=== PATIENT | male | born 1995 | race Caucasian/White ===

== ENCOUNTER 2019-08-14 07:57 | Outpatient (CLI) | payer OTHER, SELFPAY ==
--- NOTE | 2019-08-14 08:09 | MR_ITS ---
WS: [id number] MRI THORACIC SPINE noncontrast HISTORY: CHRONIC BACK PAIN, SCOLIOSIS COMPARISON: No similar studies. TECHNIQUE: Multiplanar sequences are performed in sagittal and axial planes. Mild RIGHT convex curvature of the lower thoracic spine. Increase in thoracic kyphosis centered at T9 -T12. No marrow edema or fractures. There is mild anterior wedging from T8 through T12. This could be congenital. Signal within the cord is normal. No cord enlargement or atrophy. No edema. T1-2: Normal. T2-3: Normal. T3-4: Normal. T4-5: Normal. T5-6: Normal. T6-7: Normal. T7-8: Central disc protrusion with mild contact and deformity of the ventral cord. T8-9: Small RIGHT paracentral disc protrusion with contact and deformity of the cord. T9-10: Disc osteophyte RIGHT paracentral and proximal foramen with cord contact and flattening of th e RIGHT thecal sac and cord. T10-11: Moderate-sized RIGHT paracentral disc osteophyte complex with cord contact and displacement of the thecal sac. Moderate RIGHT foraminal narrowing. T11-12: Mild disc bulging and osteophytosis. Mild flattening of the ventral thecal sac and narrowing of the foramen. T12-L1: Very shallow LEFT paracentral disc protrusion with annular fissure. MR/MR thoracic spin wo con* [id number] IMPRESSION: 1. Multilevel disc and osteophyte complexes. Most significant is RIGHT paracen tral at T9-10 and T10-11 with cord contact and deformity of the RIGHT lateral t horacic cord. 2. There are additional small multilevel disc protrusions and osteophytes from T7-8 through T12-L1.
--- NOTE | 2019-08-14 08:09 | MR_ITS ---
WS: [id number] MRI LUMBAR SPINE NONCONTRAST HISTORY: CHRONIC BACK PAIN/ SCOLIOSIS COMPARISON: None available. TECHNIQUE: Sagittal and axial multisequence imaging is submitted. Posterior alignment is normal. Very slight RIGHT convex curvature the lower lumbar spine. Disc spaces and vertebral body heights are normal. Disc spaces and vertebral body heights are well-preserved. Conus terminates normally at L1. L1-L2: Normal. L2-L3: Normal. L3-L4: Normal. L4-L5: Very slight annular disc bulging. No significant stenosis. L5-S1: Mild annular disc bulging with a shallow RIGHT paracentral disc protrusion. Very slight contac t on the RIGHT S1 nerve root and narrowing of the RIGHT subarticular recess. No significant stenosis. Paraspinal soft tissues are normal. MR/MR lumbar spine wo con* [id number] IMPRESSION: 1. Shallow RIGHT paracentral disc protrusion at L5-S1 with mild encroachment u jam the RIGHT S1 nerve root and narrowing of the RIGHT subarticular recess. 2. No fractures or marrow edema.
== END 2019-08-14 07:58 | disposition home or self-care (01) ==
LOC: RADWPI 08:03
PROVIDERS: Family Provider Electrodiagnostic Medicine; PCP Electrodiagnostic Medicine; Visit Provider Electrodiagnostic Medicine
DX: M25.78 Osteophyte, vertebrae (principal); M51.25 Other intervertebral disc displacement, thoracolumbar region
CPT/HCPCS: 72146; 72148

== ENCOUNTER 2019-09-22 13:13 | Emergency (ER) | payer OTHER, SELFPAY ==
[2019-09-22 13:24] VITALS: BP 125/77; PULSE 80; RESP 16; TEMP 36.9; O2SAT 96; BMI 27.3
[2019-09-22 13:31] VITALS: BP 125/81; PULSE 82; RESP 17; O2SAT 97
--- NOTE | 2019-09-22 13:35 | USR_ITS ---
PROCEDURE INFORMATION: Exam: US Scrotum Exam date and time: 09/22/2019 1:40 PM Age: 23 years old Clinical indication: Scrotum pain; Patient HX: Pain less than 12 hours. Question of epididymitis on RT. RT side thickened skin, small hydrocele, small spermatocele. PT directs me to area of pain in groin. The lumpy are are lympn nodes. Scanning causes him pain in groin area. ; Additional info: Groin pain TECHNIQUE: Imaging protocol: Real-time ultrasound of the scrotum and contents with color Doppler and image documentation. COMPARISON: No relevant prior studies available. FINDINGS: Right testicle: Normal. No mass. No torsion. Normal vascular flow. 4.2 cm x 1.9 cm x 2.7 Left testicle: Normal. No mass. No torsion. Normal vascular flow. 4 cm x 1.8 cm x 2.4 Epididymides: Right 3.4 mm, there is a right epididymal cyst 3.4 mm x 3 mm left 2.5 mm Scrotum: There is a scrotal bharati prior seen on the right side 2.5 mm x 2.3 mm x 2.4 mm There is skin thickening on the right side measuring 4.5 mm. Left 2.7 mm. A small volume hydrocele is seen on the right side The area of patient's symptoms correlate with small lymph nodes measuring 1.1 cm x 0.9 cm x 0.8 cm. A 2nd node is present measuring 5.5 mm, a 3rd node measures 4.5 mm. US/US scrotum [id number] IMPRESSION: 1. Negative for intrinsic testicular abnormalities. 2. Area of palpable findings correspond to benign lymph nodes 3. Right epididymal head cyst 4. Small scrotal bharati right side 5. Right side scrotal skin thickening. 6. Small hydrocele right side
[2019-09-22 13:48] LABS: Basophils % 0.2 %; Eosinophils # 0.2 10^3/uL (0.0-0.8); Eosinophils % 1.8 %; Hematocrit 46.4 % (42.0-52.0); Hemoglobin 15.5 g/dL (11.7-16.6); Lymphocytes % 11.2 %; Mean Corpuscular HGB Conc 33.4 g/dL (30.0-36.0); Mean Corpuscular Hemoglobin 30.3 pg (28.0-34.0); Mean Corpuscular Volume 90.6 fL (80-94); Mean Platelet Volume 10.5 fL (7.4-10.4); Monocytes # 0.7 10^3/uL (0.2-0.9); Monocytes % 7.9 %; Neutrophils # 7.2 10^3/uL (1.8-7.7); Neutrophils % 78.7 %; Nucleated Red Blood Cells % 0 %; Platelet Count 270 10^3/cmm (130-400); Red Blood Count 5.12 10^6/uL (4.1-5.3); Red Cell Distribution Width 12.4 % (12.1-15.1); White Blood Count 9.1 10^3/uL (4.0-10.0)
[2019-09-22 14:04] LABS: Alanine Aminotransferase 24 U/L (0-41); Albumin Level 4.5 g/dL (3.5-5.2); Alkaline Phosphatase 69 IU/L (40-130); Aspartate Amino Transferase 20 U/L (0-40); Blood Urea Nitrogen 13 mg/dL (6-20); Calcium 9.8 mg/dL (8.5-10.5); Carbon Dioxide 27 mmol/L (22-29); Chloride 98 mmol/L (98-107); Glomerular Filtration Rate 106.5 mL/min (90-130); Glucose 107 mg/dL (65-115); Osmolality Calculated 279 mOsm/kg (285-295); Sodium 136 mmol/L (136-145); Total Bilirubin 0.5 mg/dL (0.15-1.2); Total Protein 6.5 g/dL (6.6-8.7)
--- NOTE | 2019-09-22 14:08 | W.ED.MALEGU ---
Documented by User: PARMINDER Montero 09/24/19 09:41 HPI - Male Genitourinary General: Chief complaint: Urogenital-Male Stated complaint: GROIN PAIN/HIP PAIN/LOWER BACK PAIN/POSS FEVER Time Seen by Provider: 09/22/19 13:26 History of Present Illness: HPI Narrative: Patient is a 23-year-old male comes to the ED with right groin/testicular pain. Patient says pain started yesterday after he had intercourse with his girlfriend. He noticed tender lump in the groin and he described having some testicular pain as well. Patient is feeling a little nauseous and rates the pain a 7 out of 10. He also states that last night he did develop a little bit of a fever. He has been in a monogamous relationship with a woman and they are sexually active. Partner does not have any current STDs. Denies any vomiting, dysuria, hematuria, genital lesions, genital discharge. Associated symptoms: Deny dysuria, hematuria, nausea or vomiting Review of Systems Const: Reports: fever; Denies: chills or fatigue Eyes: Denies: change in vision or eye discomfort ENMT: Denies: throat pain, painful swallowing, nasal discharge or nasal congestion Card: Denies: chest pain, palpitations, edema, swelling of feet/ankles, shortness of breath on exertion or shortness of breath when lying down Resp: Denies: shortness of breath, productive cough or non-productive cough GI: Denies: abdominal pain, nausea, vomiting, diarrhea, constipation or blood in stool : Reports: testicular pain; Denies: flank pain, difficulty urinating, painful urination or blood in urine Musc: Denies: neck pain, back pain or extremity swelling Skin/Breast: Denies: rash or new lesion Neuro: Denies: headache, numbness in extremities or weakness in extremities Darrius/Lymph: Reports: tender lymph nodes (right groin) [facility] ED PFSH: Social History Smoking and tobacco status: current every day smoker Current gender identity: Male Physical Exam Narrative: EXAM NARRATIVE: Patient is a 23-year-old male who is sitting comfortably on the exam bed when I enter the room. He appears in no acute pain or distress. Const: COMMON NORMALS: oriented x3 HENMT: COMMON NORMALS: normocephalic HEAD & SCALP: normocephalic MOUTH: oral and palatal mucosa normal THROAT: posterior oropharynx normal and uvula midline Neck/C-Spine: COMMON NORMALS: supple GENERAL: Yes normal visual inspection Lymph: LYMPHATIC: lymphadenopathy (Right Groin-small mild tender palpable lymph node) Resp: COMMON NORMALS: normal respiratory effort, no retractions, no use of accessory muscles and clear to auscultation bilaterally AUSCULTATION: clear to auscultation bilaterally Cardio: COMMON NORMALS: regular rate, regular rhythm, S1 normal heart sound, S2 normal heart sound, no gallops, no clicks, no murmurs and peripheral pulses 2+ throughout RATE: regular rate RHYTHM: regular rhythm HEART SOUNDS: S1 normal and S2 normal PERIPHERAL PULSES: pulses 2+ throughout GI: COMMON NORMALS: normal to inspection, nondistended, normoactive bowel sounds, soft to palpation, non-tender and no masses PALPATION: Yes soft : COMMON NORMALS: Yes no CVA tenderness BLADDER/KIDNEY EXAM: Yes no CVA tenderness TESTES: Yes testicular tenderness Testicular tenderness laterality: right Back/Pelvis: COMMON NORMALS: no CVA tenderness Extremity: COMMON NORMALS: normal to inspection Neuro: COMMON NORMALS: oriented x3 and moves all extremities Skin: COMMON NORMALS: no rashes or lesions noted GENERAL SKIN EXAM: no rashes or lesions noted and dry skin Course Vital Signs: Vital signs: Vital Signs Temperature 98.4 F 09/22/19 15:43 Pulse Rate 72 09/22/19 15:43 Respiratory Rate 16 09/22/19 15:43 Blood Pressure 111/55 09/22/19 15:43 Pulse Oximetry 97 09/22/19 15:43 MDM - Male MDM Narrative: Medical decision making narrative: Patient is a 23-year-old male who comes into the ED with testicular and groin pain. Patient also wanted to be tested for gonorrhea and chlamydia. He is having no genital lesions or penile discharge and he is sexually active in a monogamous relationship with his girlfriend. Ultrasound showed an enlarged epididymitis and physical exam showed a small, palpable tender lymph node in the right groin. Right testicle tender as well. Patient was treated for epididymitis and given a shot of Rocephin and sent home with a prescription for doxycycline. He was told to follow-up with his PCP in 7 days for reevaluation. Patient understood and agreed with plan. Lab Data: Attestation: I reviewed the patient's lab results. Labs: Lab Results 09/22/19 09/22/19 09/22/19 Range/Units 13:42 13:42 14:43 WBC 9.1 (4.0-10.0) 10^3/ uL RBC 5.12 (4.1-5.3) 10^6/u L Hgb 15.5 (11.7-16.6) g/dL Hct 46.4 (42.0-52.0) % MCV 90.6 (80-94) fL MCH 30.3 (28.0-34.0) pg MCHC 33.4 (30.0-36.0) g/dL RDW 12.4 (12.1-15.1) % Plt Count 270 (130-400) 10^3/c mm MPV 10.5 H (7.4-10.4) fL Neut % (Auto) 78.7 % Lymph % (Auto) 11.2 % [place] % (Auto) 7.9 % Eos % (Auto) 1.8 % Baso % (Auto) 0.2 % Neut # (Auto) 7.2 (1.8-7.7) 10^3/u L Lymph # (Auto) 1.0 (0.8-4.8) 10^3/u L [place] # (Auto) 0.7 (0.2-0.9) 10^3/u L Eos # (Auto) 0.2 (0.0-0.8) 10^3/u L Baso # (Auto) 0.0 (0.0-0.1) 10^3/u L Nucleated RBC % (a uto) 0 % Nucleated RBCs # 0.0 /100WBC Sodium 136 (136-145) mmol/L Potassium 4.0 (3.5-5.1) mmol/L Chloride 98 (98-107) mmol/L Carbon Dioxide 27 (22-29) mmol/L Anion Gap 15.0 (5-19) BUN 13 (6-20) mg/dL Creatinine 0.9 (0.7-1.2) mg/dL GFR Calculation 106.5 (90-130) mL/min Glucose 107 (65-115) mg/dL Calculated Osmolal ity 279 L (285-295) mOsm/k g Calcium 9.8 (8.5-10.5) mg/dL Total Bilirubin 0.5 (0.15-1.2) mg/dL AST 20 (0-40) U/L ALT 24 (0-41) U/L Alkaline Phosphata se 69 (40-130) IU/L Total Protein 6.5 L (6.6-8.7) g/dL Albumin 4.5 (3.5-5.2) g/dL Globulin 2.0 (1.3-4.6) g/dL Urine Color Yellow (Yellow) Urine Appearance Sl hazy (CLEAR) Urine pH 7 (5-7) Ur Specific Gravit y 1.015 (1.005-1.030) Urine Protein Neg (Negative) Urine Glucose (UA) Norm (Normal) Urine Ketones Negative (Negative) Urine Blood Neg (Negative) Urine Nitrate Negative (Negative) Urine Bilirubin Neg (NEGATIVE) Urine Urobilinogen Norm (Negative) mg/dL Ur Leukocyte Juliann ase Negative (Negative) Urine RBC None (0-2) /hpf Urine WBC None (0-5) /hpf Ur Squamous Epith Cells None (0-5) Amorphous Sediment 2+ Urine Bacteria Trace (NONE) Imaging Data: US: Attestation: I personally reviewed and interpreted this imaging study as follows: My impression: Prelim report?reactive lymph node and right groin region. Right epididymitis. Radiologist's impression: [place] [address] Ultrasound Report Signed Patient: Richar Hudson Unit #: [id number] : 1995 Age/Sex: 23 / M ADM Date: 09/22/19 Loc: ER Room/Bed: Attending Dr: Ordering Provider/Ordering MD: Chaka Madrigal Date of Service: 09/22/19 Procedure(s): US scrotum [id number] Accession Number(s): [id number] Report Number: [id number] PROCEDURE INFORMATION: Exam: US Scrotum Exam date and time: 09/22/2019 1:40 PM Age: 23 years old Clinical indication: Scrotum pain; Patient HX: Pain less than 12 hours. Question of epididymitis on RT. RT side thickened skin, small hydrocele, small spermatocele. PT directs me to area of pain in groin. The lumpy are are lympn nodes. Scanning causes him pain in groin area. ; Additional info: Groin pain TECHNIQUE: Imaging protocol: Real-time ultrasound of the scrotum and contents with color Doppler and image documentation. COMPARISON: No relevant prior studies available. FINDINGS: Right testicle: Normal. No mass. No torsion. Normal vascular flow. 4.2 cm x 1.9 cm x 2.7 Left testicle: Normal. No mass. No torsion. Normal vascular flow. 4 cm x 1.8 cm x 2.4 Epididymides: Right 3.4 mm, there is a right epididymal cyst 3.4 mm x 3 mm left 2.5 mm Scrotum: There is a scrotal bharati prior seen on the right side 2.5 mm x 2.3 mm x 2.4 mm There is skin thickening on the right side measuring 4.5 mm. Left 2.7 mm. A small volume hydrocele is seen on the right side The area of patient's symptoms correlate with small lymph nodes measuring 1.1 cm x 0.9 cm x 0.8 cm. A 2nd node is present measuring 5.5 mm, a 3rd node measures 4.5 mm. US/ scrotum [id number] IMPRESSION: 1. Negative for intrinsic testicular abnormalities. 2. Area of palpable findings correspond to benign lymph nodes 3. Right epididymal head cyst 4. Small scrotal bharati right side 5. Right side scrotal skin thickening. 6. Small hydrocele right side Dictated By: Geovany Mendoza Signed By: Geovany Mendoza Signed Date/Time: 09/22/191445 DD/ 1445 Discharge Plan Discharge Patient Disposition: Home, Self-Care Clinical Impression: Epididymitis, right, Reactive lymphadenopathy Condition: Stable Prescriptions: New doxycycline monohydrate 100 mg capsule 100 mg PO BID 10 Days Qty: 20 RF: 0 prednisone 50 mg tablet 50 mg PO DAILY 5 Days Qty: 5 RF: 0 No Action Combivent Respimat 20-100 mcg/actuation mist 1 puff INHALATION QID RF: 0 naproxen 250 mg Tablet 250 mg PO BID PRN (Reason: Pain) RF: 0 Tylenol Extra Strength 500 mg Tablet 1,000 mg PO Q6H PRN (Reason: Pain) RF: 0 Protonix 40 mg Tablet,Delayed Release (Dr/Ec) 40 mg PO DAILY RF: 0 Probiotic 20 billion cell Capsule 20,000 mmu cells PO DAILY RF: 0 Discharge Orders: Discharge Order (Routine); Ordered 09/22/19 Ordered By: Chaak Madrigal Referrals: Juan Antonio Dunn DO [Primary Care Provider] - Discharge Diet: Regular Discharge Activity: Increase activity as tolerated Patient Instructions: Epididymitis, Lymphadenitis Activity Restrictions/Additional Instructions: Follow-up with PCP in 7 days for reevaluation. Take full course of antibiotics and steroids as prescribed. You can take Tylenol or ibuprofen for any pain or fevers. Apply ice pack on painful area to help with symptoms. Discharge Date/Time: 09/22/19 15:44 Coding Level of Care Code ED Rubber Turner for Chg Fwd Exam Comprehensive Documented by User: Joon Boston DO 09/24/19 11:24 HPI - Male Genitourinary General: Chief complaint: Urogenital-Male Stated complaint: GROIN PAIN/HIP PAIN/LOWER BACK PAIN/POSS FEVER Time Seen by Provider: 09/22/19 13:26 PFSH ED PFSH: Social History Smoking and tobacco status: current every day smoker Current gender identity: Male Course Vital Signs: Vital signs: Vital Signs Temperature 98.4 F 09/22/19 15:43 Pulse Rate 72 09/22/19 15:43 Respiratory Rate 16 09/22/19 15:43 Blood Pressure 111/55 09/22/19 15:43 Pulse Oximetry 97 09/22/19 15:43 MDM - Male MDM Narrative: Medical decision making narrative: Reviewed chart with PA. Agree with assessment and plan Lab Data: Labs: Lab Results 09/22/19 09/22/19 09/22/19 Range/Units 13:42 13:42 14:43 WBC 9.1 (4.0-10.0) 10^3/ uL RBC 5.12 (4.1-5.3) 10^6/u L Hgb 15.5 (11.7-16.6) g/dL Hct 46.4 (42.0-52.0) % MCV 90.6 (80-94) fL MCH 30.3 (28.0-34.0) pg MCHC 33.4 (30.0-36.0) g/dL RDW 12.4 (12.1-15.1) % Plt Count 270 (130-400) 10^3/c mm MPV 10.5 H (7.4-10.4) fL Neut % (Auto) 78.7 % Lymph % (Auto) 11.2 % [place] % (Auto) 7.9 % Eos % (Auto) 1.8 % Baso % (Auto) 0.2 % Neut # (Auto) 7.2 (1.8-7.7) 10^3/u L Lymph # (Auto) 1.0 (0.8-4.8) 10^3/u L [place] # (Auto) 0.7 (0.2-0.9) 10^3/u L Eos # (Auto) 0.2 (0.0-0.8) 10^3/u L Baso # (Auto) 0.0 (0.0-0.1) 10^3/u L Nucleated RBC % (a uto) 0 % Nucleated RBCs # 0.0 /100WBC Sodium 136 (136-145) mmol/L Potassium 4.0 (3.5-5.1) mmol/L Chloride 98 (98-107) mmol/L Carbon Dioxide 27 (22-29) mmol/L Anion Gap 15.0 (5-19) BUN 13 (6-20) mg/dL Creatinine 0.9 (0.7-1.2) mg/dL GFR Calculation 106.5 (90-130) mL/min Glucose 107 (65-115) mg/dL Calculated Osmolal ity 279 L (285-295) mOsm/k g Calcium 9.8 (8.5-10.5) mg/dL Total Bilirubin 0.5 (0.15-1.2) mg/dL AST 20 (0-40) U/L ALT 24 (0-41) U/L Alkaline Phosphata se 69 (40-130) IU/L Total Protein 6.5 L (6.6-8.7) g/dL Albumin 4.5 (3.5-5.2) g/dL Globulin 2.0 (1.3-4.6) g/dL Urine Color Yellow (Yellow) Urine Appearance Sl hazy (CLEAR) Urine pH 7 (5-7) Ur Specific Gravit y 1.015 (1.005-1.030) Urine Protein Neg (Negative) Urine Glucose (UA) Norm (Normal) Urine Ketones Negative (Negative) Urine Blood Neg (Negative) Urine Nitrate Negative (Negative) Urine Bilirubin Neg (NEGATIVE) Urine Urobilinogen Norm (Negative) mg/dL Ur Leukocyte Juliann ase Negative (Negative) Urine RBC None (0-2) /hpf Urine WBC None (0-5) /hpf Ur Squamous Epith Cells None (0-5) Amorphous Sediment 2+ Urine Bacteria Trace (NONE) Discharge Plan Discharge Patient Disposition: Home, Self-Care Clinical Impression: Epididymitis, right, Reactive lymphadenopathy Condition: Stable Prescriptions: New doxycycline monohydrate 100 mg capsule 100 mg PO BID 10 Days Qty: 20 RF: 0 prednisone 50 mg tablet 50 mg PO DAILY 5 Days Qty: 5 RF: 0 No Action Combivent Respimat 20-100 mcg/actuation mist 1 puff INHALATION QID RF: 0 naproxen 250 mg Tablet 250 mg PO BID PRN (Reason: Pain) RF: 0 Tylenol Extra Strength 500 mg Tablet 1,000 mg PO Q6H PRN (Reason: Pain) RF: 0 Protonix 40 mg Tablet,Delayed Release (Dr/Ec) 40 mg PO DAILY RF: 0 Probiotic 20 billion cell Capsule 20,000 mmu cells PO DAILY RF: 0 Discharge Orders: Discharge Order (Routine); Ordered 09/22/19 Ordered By: Chaka Madrigal Referrals: Juan Antonio Dunn DO [Primary Care Provider] - Discharge Diet: Regular Discharge Activity: Increase activity as tolerated Patient Instructions: Epididymitis, Lymphadenitis Activity Restrictions/Additional Instructions: Follow-up with PCP in 7 days for reevaluation. Take full course of antibiotics and steroids as prescribed. You can take Tylenol or ibuprofen for any pain or fevers. Apply ice pack on painful area to help with symptoms. Discharge Date/Time: 09/22/19 15:44 Coding Level of Care Code ED Rubber Turner for Chg Fwd Exam Comprehensive
[2019-09-22] MEDS: ondansetron 4 MG Tablet PO (14:37)
[2019-09-22] MEDS: HYDROcodone-acetaminophen 7.5-325 mg Tablet 1 TAB PO (14:37)
[2019-09-22 14:41] VITALS: BP 134/69; RESP 16
[2019-09-22] MEDS: cefTRIAXone 250 mg SDV IM (15:04)
[2019-09-22] MEDS: lidocaine 1% INJ 20 mL IM (15:05)
[2019-09-22 15:24] LABS: Bilirubin Urine Neg (NEGATIVE); Blood Urine Neg (Negative); Glucose Urine UA Norm (Normal); Ketones Urine Negative (Negative); Nitrate Urine Negative (Negative); Protein Urine Neg (Negative); Specific Gravity, Urine 1.015 (1.005-1.030); Urine Appearance SL Hazy (CLEAR); Urine Color Yellow (Yellow); Urobilinogen Urine Norm (Negative); pH Urine 7 (5-7)
[2019-09-22 15:25] LABS: Add Urine Culture? No; Amorphous Sediment Urine 2+; Bacteria Urine TRACE
[2019-09-22] MEDS: calcium carbonate 500 mg Chew Tablet PO (15:42)
[2019-09-22 15:43] VITALS: BP 111/55; PULSE 72; RESP 16; TEMP 36.9; O2SAT 97
[2019-09-22 15:48] LABS: Leukocyte Esterase Urine Negative (Negative)
== END 2019-09-22 15:44 | disposition home or self-care (01) ==
PROVIDERS: Emergency Provider Physician Assistant; Family Provider Electrodiagnostic Medicine; PCP Electrodiagnostic Medicine
DX: N45.1 Epididymitis (principal); R59.0 Localized enlarged lymph nodes; F17.200 Nicotine dependence, unspecified, uncomplicated
CPT/HCPCS: 12345; 36415; 76870; 80053; 81001; 85025; 87491; 87591; 96372; 99283; A9270; J0696; J2001; Q0162

== ENCOUNTER → 2020-01-23 13:45 | Outpatient (BNVA) | payer OTHER, SELFPAY | PROVIDERS: Family Provider Electrodiagnostic Medicine; PCP Electrodiagnostic Medicine; Visit Provider Nurse Practitioner Family | DX: R05 Cough (principal); R50.9 Fever, unspecified; R53.83 Other fatigue; Z11.59 Encounter for screening for other viral diseases | CPT/HCPCS: 87635 ==

== ENCOUNTER → 2020-02-17 13:49 | Outpatient (BNVA) | payer OTHER, SELFPAY | PROVIDERS: Family Provider Electrodiagnostic Medicine; PCP Electrodiagnostic Medicine; Visit Provider Psychiatry & Neurology Psychiatry | DX: F33.2 Major depressive disorder, recurrent severe without psychotic features (principal); F41.1 Generalized anxiety disorder; F10.20 Alcohol dependence, uncomplicated; F11.20 Opioid dependence, uncomplicated; F17.200 Nicotine dependence, unspecified, uncomplicated; F12.20 Cannabis dependence, uncomplicated; F43.12 Post-traumatic stress disorder, chronic | CPT/HCPCS: 80053; 80306; 82150; 83690; 84443; 85025; 99204 ==

== ENCOUNTER → 2020-02-18 09:05 | Outpatient (BNVA) | payer OTHER, SELFPAY | PROVIDERS: Family Provider Electrodiagnostic Medicine; PCP Electrodiagnostic Medicine; Visit Provider Psychiatry & Neurology Psychiatry | DX: F41.1 Generalized anxiety disorder (principal); F33.2 Major depressive disorder, recurrent severe without psychotic features; F12.20 Cannabis dependence, uncomplicated; F17.200 Nicotine dependence, unspecified, uncomplicated; F10.20 Alcohol dependence, uncomplicated; F11.20 Opioid dependence, uncomplicated | CPT/HCPCS: 99213 ==

== ENCOUNTER → 2020-02-24 16:33 | Outpatient (BNVA) | payer OTHER, SELFPAY | PROVIDERS: Family Provider Electrodiagnostic Medicine; PCP Electrodiagnostic Medicine; Visit Provider Psychiatry & Neurology Psychiatry | DX: F17.200 Nicotine dependence, unspecified, uncomplicated (principal); F41.1 Generalized anxiety disorder; F33.2 Major depressive disorder, recurrent severe without psychotic features; F12.20 Cannabis dependence, uncomplicated; F10.20 Alcohol dependence, uncomplicated; F11.20 Opioid dependence, uncomplicated | CPT/HCPCS: 80307 ==

== ENCOUNTER → 2020-03-11 12:45 | Outpatient (BNVA) | payer OTHER, SELFPAY | PROVIDERS: Family Provider Electrodiagnostic Medicine; PCP Electrodiagnostic Medicine; Visit Provider Psychiatry & Neurology Psychiatry | DX: F11.20 Opioid dependence, uncomplicated (principal) | CPT/HCPCS: 80306; 80307 ==

== ENCOUNTER 2020-08-01 10:56 | Emergency (ER) | payer SELFPAY ==
[2020-08-01 11:01] VITALS: BP 145/103; PULSE 100; RESP 18; TEMP 36.8; O2SAT 99; BMI 30.4
--- NOTE | 2020-08-01 11:03 | CTR_ITS ---
PROCEDURE INFORMATION: Exam: CT Abdomen And Pelvis Without Contrast Exam date and time: 08/01/2020 11:14 AM Age: 24 years old Clinical indication: Abdominal pain; Flank; Right; Prior surgery; Surgery date: 6+ months; Surgery type: Appy; Additional info: Flank pain, hematuria TECHNIQUE: Imaging protocol: Computed tomography of the abdomen and pelvis without contrast. Radiation optimization: All CT scans at this facility use at least one of these dose optimization techniques: automated exposure control; mA and/or kV adjustment per patient size (includes targeted exams where dose is matched to clinical indication); or iterative reconstruction. COMPARISON: [facility] Abdomen Limited 12/08/2014 9:20 AM RADIATION DOSE METRICS: Total DLP (mGy-cm): 1269.48 FINDINGS: Liver: Normal. No mass. Gallbladder and bile ducts: Normal. No calcified stones. No ductal dilation. Pancreas: Normal. No ductal dilation. Spleen: Normal. No splenomegaly. Adrenal glands: Normal. No mass. Kidneys and ureters: There is a 0.3 cm obstructing stone in the right UVJ, resulting in mild hydroureteronephrosis. There is multiple additional nonobstructive kidney stones on the right, measuring between 1 mm and 2 mm. The left kidney is unremarkable. Stomach and bowel: Unremarkable. No obstruction. No mucosal thickening. Appendix: There has been an appendectomy. Intraperitoneal space: Unremarkable. No free air. No significant fluid collection. Vasculature: Unremarkable. No abdominal aortic aneurysm. Lymph nodes: Unremarkable. No enlarged lymph nodes. Urinary bladder: Unremarkable as visualized. Reproductive: Unremarkable as visualized. Bones/joints: Tiny bone islands noted in the hips. The osseous structures are otherwise unremarkable. Soft tissues: Unremarkable. CT/CT kidney stone [id number] IMPRESSION: Obstructing stone in the right UVJ, resulting in mild hydroureteronephrosis. Additional nonobstructive right kidney stones. Radiation Dose CTDIVOL = (mGy): DLP = 1269.48 (mGy-cm)
--- NOTE | 2020-08-01 11:04 | W.ED.MALEGU ---
HPI - Male Genitourinary General: Chief complaint: Urogenital-Male Stated complaint: Kidney Stones Time Seen by Provider: 08/01/20 10:59 History of Present Illness: HPI Narrative: 24-year-old male presents emergency room with complaint of hematuria flank pain on the left radiating down to the suprapubic area. He has had some nausea and vomiting. He is not previously had renal stones. Denies fever sweats chills shortness of breath cough or chest pain. Onset (ago): hour(s) Duration: constant Location: left flank Radiation: abdomen Severity: severe Quality: sharp Relieving factors: none Exacerbating factors: urination Associated symptoms: Reports dysuria, hematuria and vomiting; Deny discharge, fevers/chills, nausea, rash, swelling, urinary incontinence, urinary retention or mass Review of Systems Const: Denies: fever(s), chills, body aches, change in appetite, fatigue or malaise ENMT: Denies: throat pain, ear or mastoid pain, nasal discharge or nasal congestion Card: Denies: chest pain, edema, dyspnea on exertion or orthopnea Resp: Denies: dyspnea, productive cough or non-productive cough GI: Reports: vomiting; Denies: nausea : Reports: dysuria and hematuria; Denies: urinary incontinence Skin/Breast: Denies: rash or pruritus PFSH ED PFSH: Social History Smoking and tobacco status: current every day smoker cigarettes Packs smoked per day: 0.5 and e-cigarettes E-Cigarette Details: e-cigarette and with nicotine E-cig/vape details: Daily use Quit status (tobacco): has tried quititng Number of times tried to quit tobacco: 5 Second hand smoke exposure: Yes Smoking risk assessment/counseling performed?: No Alcohol intake: current Current gender identity: Male Physical Exam Const: COMMON NORMALS: no acute distress GENERAL APPEARANCE: cooperative and comfortable ORIENTATION/CONSCIOUSNESS: Yes awake, Yes oriented to person, Yes oriented to place and Yes oriented to time HENMT: COMMON NORMALS: normocephalic, atraumatic and hearing grossly normal bilaterally HEAD & SCALP: normocephalic and atraumatic Neck/C-Spine: COMMON NORMALS: no JVD Resp: COMMON NORMALS: normal respiratory effort, No retractions, No use of accessory muscles and clear to auscultation bilaterally AUSCULTATION: clear to auscultation bilaterally Cardio: COMMON NORMALS: no JVD, regular rate, regular rhythm and No murmurs present (Cardio) RATE: regular rate RHYTHM: regular rhythm GI: COMMON NORMALS: Soft to palpation and No hepatosplenomegaly present AUSCULTATION: Yes normoactive bowel sounds PALPATION: Yes Soft to palpation, No Tenderness to palpation present (GI), No Guarding due to palpation present (GI) and Yes No hepatosplenomegaly present Extremity: COMMON NORMALS: normal to inspection, capillary refill normal, no clubbing, cyanosis or edema, no calf tenderness and no pedal edema Neuro: SENSORIUM/ORIENTATION: Yes oriented to person, Yes oriented to place and Yes oriented to time Skin: COMMON NORMALS: no rashes or lesions noted GENERAL SKIN EXAM: no rashes or lesions noted Course Vital Signs: Vital signs: Vital Signs Temperature 98.2 F 08/01/20 11:01 Pulse Rate 100 08/01/20 11:01 Respiratory Rate 18 08/01/20 12:37 Blood Pressure 145/103 08/01/20 11:01 Pulse Oximetry 100 08/01/20 12:37 MDM - Male MDM Narrative: Medical decision making narrative: 3 mm stone at the right UVJ. Pain is well controlled at this time will discharge home with pain medications tamsulosin and Zofran strain urine follow-up with [facility] Lab Data: Labs: Lab Results 08/01/20 08/01/20 08/01/20 Range/Units 11:36 11:36 11:59 WBC 7.8 (4.0-10.0) 10^3/ uL RBC 4.95 (4.1-5.3) 10^6/u L Hgb 14.9 (11.7-16.6) g/dL Hct 44.9 (42.0-52.0) % MCV 90.7 (80-94) fL MCH 30.1 (28.0-34.0) pg MCHC 33.2 (30.0-36.0) g/dL RDW 11.7 L (12.1-15.1) % Plt Count 306 (130-400) 10^3/c mm MPV 10.7 H (7.4-10.4) fL Neut % (Auto) 56.3 % Lymph % (Auto) 31.1 % [place] % (Auto) 8.5 % Eos % (Auto) 3.7 % Baso % (Auto) 0.3 % Neut # (Auto) 4.41 (1.8-7.7) 10^3/u L Lymph # (Auto) 2.4 (0.8-4.8) 10^3/u L [place] # (Auto) 0.7 (0.2-0.9) 10^3/u L Eos # (Auto) 0.3 (0.0-0.8) 10^3/u L Baso # (Auto) 0.0 (0.0-0.1) 10^3/u L Nucleated RBC % (a uto) 0 % Nucleated RBCs # 0.0 /100WBC Sodium 136 (136-145) mmol/L Potassium 3.3 L (3.5-5.1) mmol/L Chloride 99 (98-107) mmol/L Carbon Dioxide 26 (22-29) mmol/L Anion Gap 14.3 (5-19) BUN 13 (6-20) mg/dL Creatinine 0.7 (0.7-1.2) mg/dL GFR Calculation 141.0 H (90-130) mL/min Glucose 78 (65-115) mg/dL Calculated Osmolal ity 281 L (285-295) mOsm/k g Calcium 9.5 (8.5-10.5) mg/dL Urine Color Straw (Yellow) Urine Appearance Clear (CLEAR) Urine pH 6 (5-7) Ur Specific Gravit y 1.010 (1.005-1.030) Urine Protein Neg (Negative) Urine Glucose (UA) Norm (Normal) Urine Ketones Negative (Negative) Urine Blood 3+ H (Negative) Urine Nitrate Negative (Negative) Urine Bilirubin Neg (Negative) Urine Urobilinogen Norm (Negative) mg/dL Ur Leukocyte Juliann ase Negative (Negative) Urine RBC 0-4 H (0-2) /hpf Urine WBC Rare (0-5) /hpf Ur Squamous Epith Cells Rare (0-5) /hpf Amorphous Sediment Not Reportable Urine Bacteria Trace (NONE) /hpf Discharge Plan Discharge Patient Disposition: Home Clinical Impression: Right nephrolithiasis Condition: Stable Prescriptions: New hydrocodone-acetaminophen 5-325 mg tablet 1 tab PO Q6H PRN (Reason: pain) Qty: 25 RF: 0 Zofran 4 mg tablet 4 mg PO Q6H PRN (Reason: nausea and vomiting) Qty: 20 RF: 0 tamsulosin 0.4 mg capsule 0.4 mg PO DAILY Qty: 20 RF: 0 No Action albuterol sulfate [ProAir HFA] 90 mcg/actuation HFA aerosol inhaler 2 puff INHALATION Q6H PRN (Reason: shortness of breath or wheezing) Qty: 8.5 RF: 0 albuterol sulfate 2.5 mg /3 mL (0.083 %) solution for nebulization 2.5 mg continuous nebulization Q4H PRN (Reason: Shortness Of Breath) RF: 0 Benadryl 50 mg Capsule 50 mg PO QID PRN (Reason: unknown) RF: 0 ibuprofen 200 mg Tablet 200 - 400 mg PO Q6H PRN (Reason: Pain) RF: 0 Tylenol 1 - 2 tab PO Q6H PRN (Reason: Pain) RF: 0 Discharge Orders: Discharge ED (Routine); Ordered 08/01/20 Ordered By: Joon Boston Discharge Diet: Usual diet Discharge Activity: Resume usual activity Coding Level of Care Code ED Certified Fraud Examiner for Chg Fwd Exam Comprehensive
[2020-08-01 11:31] VITALS: RESP 18; O2SAT 100
[2020-08-01] MEDS: ondansetron 2 mg/ML SDV 2 mL 4 MG IVP (11:31)
[2020-08-01] MEDS: morphine 4 mg/mL SDV 1 mL IVP (11:31)
[2020-08-01] MEDS: sodium chloride 0.9% 1,000 ML 999 ML IV (11:32)
[2020-08-01 11:47] LABS: Basophils % 0.3 %; Eosinophils # 0.3 10^3/uL (0.0-0.8); Eosinophils % 3.7 %; Hematocrit 44.9 % (42.0-52.0); Hemoglobin 14.9 g/dL (11.7-16.6); Lymphocytes # 2.4 10^3/uL (0.8-4.8); Lymphocytes % 31.1 %; Mean Corpuscular HGB Conc 33.2 g/dL (30.0-36.0); Mean Corpuscular Hemoglobin 30.1 pg (28.0-34.0); Mean Corpuscular Volume 90.7 fL (80-94); Mean Platelet Volume 10.7 fL (7.4-10.4); Monocytes # 0.7 10^3/uL (0.2-0.9); Monocytes % 8.5 %; Neutrophils # 4.41 10^3/uL (1.8-7.7); Neutrophils % 56.3 %; Nucleated Red Blood Cells % 0 %; Platelet Count 306 10^3/cmm (130-400); Red Blood Count 4.95 10^6/uL (4.1-5.3); Red Cell Distribution Width 11.7 % (12.1-15.1); White Blood Count 7.8 10^3/uL (4.0-10.0)
[2020-08-01 12:13] LABS: Anion Gap 14.3 (5-19); Blood Urea Nitrogen 13 mg/dL (6-20); Calcium 9.5 mg/dL (8.5-10.5); Carbon Dioxide 26 mmol/L (22-29); Chloride 99 mmol/L (98-107); Glucose 78 mg/dL (65-115); Osmolality Calculated 281 mOsm/kg (285-295); Potassium 3.3 mmol/L (3.5-5.1); Sodium 136 mmol/L (136-145)
[2020-08-01 12:27] LABS: Urine Appearance Clear (CLEAR); Urine Color Straw (Yellow); pH Urine 6 (5-7)
[2020-08-01 12:28] LABS: Add Urine Culture? No; Add Urine Microscopic? YES; Bacteria Urine TRACE /hpf; Bilirubin Urine Neg (Negative); Blood Urine 3+ (Negative); Glucose Urine UA Norm (Normal); Ketones Urine Negative (Negative); Leukocyte Esterase Urine Negative (Negative); Nitrate Urine Negative (Negative); Protein Urine Neg (Negative); RBC Urine 0-4 /hpf (0-2); Squamous Epithelial Cell Urine RARE /hpf (0-5); Urobilinogen Urine Norm (Negative); WBC Urine RARE /hpf (0-5)
[2020-08-01 12:37] VITALS: RESP 18; O2SAT 100
[2020-08-01] MEDS: morphine 4 mg/mL SDV 1 mL 6 MG IVP (12:37)
[2020-08-01] MEDS: potassium chloride oral liq 20 mEq/15 mL UDC 40 MEQ PO (13:11)
[2020-08-01 13:21] VITALS: BP 154/84; PULSE 87; RESP 18; O2SAT 98
--- NOTE | 2020-08-03 11:01 | DCPLANNER ---
territory sales manager medical had message to schedule a follow up appointment for patient with Dr. Riojas office. territory sales manager medical called the office of Dr. Hadley, spoke with Cindy, gave clinic patients information. territory sales manager medical was told that patients information would be printed and reviewed. Clinic will call patient with appointment information.
--- NOTE | 2020-08-05 11:36 | DCPLANNER ---
Patient has a follow up appointment scheduled for Wednesday, August 05, [address] at 2:[address] Hadley. Clinic will call patient with appointment information.
--- NOTE | 2020-09-02 14:37 | DCPLANNER ---
Patient had a follow up appointment scheduled for 08.05.[address] Hadley - patient did not attend appointment.
== END 2020-08-01 13:26 | disposition home or self-care (01) ==
PROVIDERS: Emergency Provider Family Medicine
DX: N20.0 Calculus of kidney (principal); F17.210 Nicotine dependence, cigarettes, uncomplicated
CPT/HCPCS: 12345; 74176; 80048; 81000; 81001; 85025; 96361; 96374; 96375; 96376; 99283; J2270; J2405; J7030

== ENCOUNTER 2020-11-26 17:52 | Emergency (ER) | payer SELFPAY ==
[2020-11-26 18:19] VITALS: BP 116/80; PULSE 118; RESP 18; TEMP 37.1; O2SAT 96; BMI 26.4
--- NOTE | 2020-11-26 19:28 | XRR_ITS ---
PROCEDURE INFORMATION: Exam: XR Chest Exam date and time: 11/26/2020 7:48 PM Age: 24 years old Clinical indication: Cough; Additional info: Cough and other uri symptoms TECHNIQUE: Imaging protocol: XR of the chest. Views: 1 view. COMPARISON: CR Chest 1 [place] [id number] 03/30/2015 2:45 AM FINDINGS: Lungs: Unremarkable. No consolidation. Pleural spaces: Unremarkable. No pleural effusion. No pneumothorax. Heart/Mediastinum: Unremarkable. No cardiomegaly. Bones/joints: Unremarkable. XR/XR chest 1V portable [id number] IMPRESSION: No acute findings.
--- NOTE | 2020-11-26 19:29 | ED_ITS ---
HPI - URI/Sore Throat General: Chief Complaint: Upper Respiratory Infection Stated Complaint: Covid Symptoms Time Seen by Provider: 11/26/20 19:24 History of Present Illness: HPI Narrative: Patient is a 24-year-old male comes to the ED with upper respiratory infection symptoms. Patient has a past medical history of asthma and is also a daily smoker. Patient is fully vaccinated for COVID-19 and received vaccinations a couple months ago. In the past 3 days he started developing productive cough with clear sputum, nasal drainage and congestion, low-grade fever and headache. Patient has an albuterol nebulizer at home and albuterol inhaler. He is been using those multiple times for the past couple days since start of symptoms. Patient also states that he was around couple people that just tested positive for COVID-19. He also states that the home that he lives in [facility] for a year has a lot of mold and he has been having more asthma symptoms this past year. Associated symptoms: Reports fever(s), headache(s) and nasal congestion; Deny abdominal pain, chills, chest pain, diarrhea, nausea or vomiting Review of Systems Const: Reports: fever(s); Denies: chills or fatigue Eyes: Denies: change in vision or eye discomfort ENMT: Reports: nasal discharge and nasal congestion; Denies: throat pain or odynophagia Card: Denies: chest pain, palpitations, edema, swelling of feet/ankles, dyspnea on exertion or orthopnea Resp: Reports: productive cough (clear sputum) and wheezing; Denies: dyspnea or non-productive cough GI: Denies: abdominal pain, nausea, vomiting, diarrhea, constipation or hematochezia : Denies: flank pain, difficulty urinating, dysuria or hematuria Musc: Denies: neck pain, back pain or extremity swelling Skin/Breast: Denies: rash or new lesions Neuro: Reports: headache(s); Denies: numbness in extremities or weakness in extremities PFSH ED PFSH: Social History Smoking and tobacco status: current every day smoker cigarettes Packs smoked per day: 0.5 and e-cigarettes E-Cigarette Details: e-cigarette and with nicotine E-cig/vape details: Daily use Quit status (tobacco): has tried quititng Number of times tried to quit tobacco: 5 Second hand smoke exposure: Yes Smoking risk assessment/counseling performed?: No Alcohol intake: current Current gender identity: Male Physical Exam Const: COMMON NORMALS: no acute distress, patient oriented x3, healthy appearing and alert GENERAL APPEARANCE: cooperative and comfortable HENMT: COMMON NORMALS: normocephalic HEAD & SCALP: normocephalic MOUTH: Normal oral and palatal mucosa present THROAT: posterior oropharynx normal and uvula midline Neck/C-Spine: COMMON NORMALS: supple GENERAL: Yes normal visual inspection Resp: COMMON NORMALS: normal respiratory effort, No retractions and No use of accessory muscles EFFORT & INSPECTION: Yes able to speak in complete sentences, No tachypneic, No respiratory distress and No labored AUSCULTATION: wheezes expiratory wheezes, lower bilaterally, upper bilaterally and throughout Cardio: COMMON NORMALS: regular rate, regular rhythm, S1 normal heart sound present, S2 normal heart sound present, No gallops present (Cardio), No clicks present (Cardio), No murmurs present (Cardio) and Peripheral pulses 2+ throughout RATE: regular rate RHYTHM: regular rhythm HEART SOUNDS: S1 normal heart sound present and S2 normal heart sound present PERIPHERAL PULSES: Peripheral pulses 2+ throughout GI: COMMON NORMALS: Normal to inspection, nondistended, normoactive bowel sounds present, Soft to palpation, non-tender and no masses PALPATION: Yes Soft to palpation : COMMON NORMALS: Yes no CVA tenderness BLADDER/KIDNEY EXAM: Yes no CVA tenderness Back/Pelvis: COMMON NORMALS: no CVA tenderness Extremity: COMMON NORMALS: normal to inspection Neuro: COMMON NORMALS: patient oriented x3 and moves all extremities SENSORIUM/ORIENTATION: Yes alert Skin: GENERAL SKIN EXAM: dry skin Course Vital Signs: Vital signs: Vital Signs Temperature 98.8 F 11/26/20 18:19 Pulse Rate 85 11/26/20 22:10 Respiratory Rate 16 11/26/20 22:10 Blood Pressure 137/82 11/26/20 22:10 Pulse Oximetry 97 11/26/20 21:57 MDM - URI/Sore Throat MDM Narrative: Medical decision making narrative: Patient is a 24-year-old male comes to the ED with upper respiratory infection symptoms. Patient has been fully vaccinated for COVID-19 but he was exposed to some people who were just diagnosed with COVID-19 and he started developing the symptoms. Patient has a cough low-grade fever and some wheezing. Patient has a history of asthma and has albuterol inhaler and albuterol nebulizer. Vitals are stable. Exam findings show a nontoxic appearing patient in no acute distress or pain. Patient does have bilateral wheezing throughout his lungs. Chest x-ray shows no acute findings. COVID-19 PCR testing done and is pending. Patient was given Solu-Medrol, azithromycin and 2 breathing treatments while here in the ED. Patient was diagnosed with upper respiratory infection and reactive airway disease with wheezing. He was discharged home with a prescription for azithromycin, Medrol Dosepak and a budesonide inhaler. He was told to self quarantine until COVID-19 lab results are back. I told him to contact [facility] in the next 48 hours to get the COVID-19 results. Return to ED precautions given. Follow-up with PCP in 7 to 10 days reevaluation. Patient understood agree with plan. Imaging Data^: CXR: Attestation: I personally reviewed and interpreted this imaging study as follows: Radiologist's impression: [email or web address] [address] [place] [id number] XRay Report Signed Patient: Richar Hudson Unit #: [id number] : 1995 Age/Sex: 24 / M ADM Date: 11/26/20 Loc: ER Room/Bed: Attending Dr: Ordering Provider/Ordering MD: Chaka Madrigal Date of Service: 11/26/20 Procedure(s): XR chest 1V portable [id number] Accession Number(s): [id number] Report Number: [id number] PROCEDURE INFORMATION: Exam: XR Chest Exam date and time: 11/26/2020 7:48 PM Age: 24 years old Clinical indication: Cough; Additional info: Cough and other uri symptoms TECHNIQUE: Imaging protocol: XR of the chest. Views: 1 view. COMPARISON: CR Chest 1 [place] [id number] 03/30/2015 2:45 AM FINDINGS: Lungs: Unremarkable. No consolidation. Pleural spaces: Unremarkable. No pleural effusion. No pneumothorax. Heart/Mediastinum: Unremarkable. No cardiomegaly. Bones/joints: Unremarkable. XR/XR chest 1V portable [id number] IMPRESSION: No acute findings. Dictated By: Jeovany Ang Signed By: Jeovany Ang Signed Date/Time: 11/26/202044 DD/ 44 Discharge Plan Discharge Patient Disposition: Home Clinical Impression: Upper respiratory infection with cough and congestion RAD (reactive airway disease) with wheezing Qualifiers: Asthma severity: mild Asthma persistence: intermittent Asthma complication type: uncomplicated Qualified Code(s): J45.20 - Mild intermittent asthma, uncomplicated Condition: Stable Prescriptions: New azithromycin 250 mg tablet 250 mg PO DAILY 4 Days Qty: 4 RF: 0 Medrol (Jossue) 4 mg tablets,dose pack See Rx Instructions .ROUTE .COMPLEX Qty: 21 RF: 0 budesonide 180 mcg/actuation aerosol powdr breath activated 1 inh inhalation BID Qty: 1 RF: 0 No Action albuterol sulfate [ProAir HFA] 90 mcg/actuation HFA aerosol inhaler 2 puff INHALATION Q6H PRN (Reason: shortness of breath or wheezing) Qty: 8.5 RF: 0 albuterol sulfate 2.5 mg /3 mL (0.083 %) solution for nebulization 2.5 mg continuous nebulization Q4H PRN (Reason: Shortness Of Breath) RF: 0 Benadryl 50 mg Capsule 50 mg PO QID PRN (Reason: unknown) RF: 0 ibuprofen 200 mg Tablet 200 - 400 mg PO Q6H PRN (Reason: Pain) RF: 0 Tylenol 1 - 2 tab PO Q6H PRN (Reason: Pain) RF: 0 hydrocodone-acetaminophen 5-325 mg tablet 1 tab PO Q6H PRN (Reason: pain) Qty: 25 RF: 0 Zofran 4 mg tablet 4 mg PO Q6H PRN (Reason: nausea and vomiting) Qty: 20 RF: 0 tamsulosin 0.4 mg capsule 0.4 mg PO DAILY Qty: 20 RF: 0 Discharge Orders: Discharge ED (Routine); Ordered 11/26/20 Ordered By: Chaka Madrigal Discharge Diet: Regular Discharge Activity: Increase activity as tolerated Patient Instructions: Upper Respiratory Infection (ED), Reactive Airways Dis ease (ED) Activity Restrictions/Additional Instructions: Follow-up with medical provider as directed. Self quarantine for the next 10 days pending your COVID-19 test results. The COVID-19 results should be available tomorrow, so call [facility] to find out lab results take medications as prescribed. You can start taking the azithromycin tomorrow since you received initial dose tonight. Return to the ER or your medical provider if condition worsens. Please read and understand discharge instructions. Thank you for choosing [facility] for your healthcare needs today. Please realize this is an emergency room and that we are providing you with a medical screening exam and this may not be complete and all inclusive of all the testing and or work up that you may need to determine your ailment or severity of your illness. It is very important that you follow up as instructed or that you return to the Emergency Department should you have concerns or if your con dition changes or worsens in any way. Coding Level of Care Code ED Real Estate Agent/Broker for Pepper Fwd Exam Comprehensive
[2020-11-26] MEDS: azithromycin 250 mg Tablet 500 MG PO (20:56)
[2020-11-26 21:30] VITALS: PULSE 91; RESP 19; O2SAT 98
[2020-11-26] MEDS: budesonide 0.5 mg/2 mL Neb INHALATION (21:32)
[2020-11-26 21:37] VITALS: PULSE 90
[2020-11-26 21:57] VITALS: PULSE 84; RESP 17; O2SAT 97
[2020-11-26] MEDS: ipratropium-albuterol 3 mL Neb INHALATION (21:57)
[2020-11-26 22:03] VITALS: PULSE 80
[2020-11-26 22:10] VITALS: BP 137/82; PULSE 85; RESP 16
[2020-11-28 14:09] LABS: Coronavirus Test Green County Not Detected
== END 2020-11-26 22:11 | disposition home or self-care (01) ==
PROVIDERS: Emergency Provider Physician Assistant
DX: J06.9 Acute upper respiratory infection, unspecified (principal); J45.20 Mild intermittent asthma, uncomplicated; F17.210 Nicotine dependence, cigarettes, uncomplicated; Z20.822 Contact with and (suspected) exposure to COVID-19
CPT/HCPCS: 71045; 87635; 94640; 96372; 99284; J2930; J7626; Q0144

== ENCOUNTER 2021-10-31 18:49 | Emergency (ER) | payer SELFPAY ==
--- NOTE | 2021-10-31 19:10 | W.ED.ASTHMA ---
HPI - Asthma General: Chief Complaint: Asthma Stated Complaint: Asthma Flareup Time Seen by Provider: 10/31/21 19:09 History of Present Illness: 25-year-old male patient comes in today with worsening respiratory issues due to asthma. Patient had ran out of his inhaler and for the last 2 to 3 days he has been having increasing difficulty of breathing. Patient was able to use some albuterol per nebulizer machine today. Patient appears in no pain. Patient appears nontoxic. Associated symptoms: Deny chest pain or fever(s) Review of Systems General: Reports: 10 or more systems reviewed and unremarkable except in HPI and below Const: Denies: fever(s) Card: Denies: chest pain Resp: Reports: dyspnea and wheezing GI: Denies: nausea or vomiting Skin/Breast: Denies: rash PFSH ED PFSH: Social History Smoking and tobacco status: current every day smoker cigarettes Packs smoked per day: 0.5 and e-cigarettes E-Cigarette Details: e-cigarette and with nicotine E-cig/vape details: Daily use Quit status (tobacco): has tried quititng Number of times tried to quit tobacco: 5 Second hand smoke exposure: Yes Smoking risk assessment/counseling performed?: No Alcohol intake: current Current gender identity: Male Physical Exam Const: COMMON NORMALS: alert Neck/C-Spine: COMMON NORMALS: full ROM Resp: COMMON NORMALS: normal respiratory effort AUSCULTATION: wheezes Cardio: COMMON NORMALS: regular rate and regular rhythm RATE: regular rate RHYTHM: regular rhythm Extremity: COMMON NORMALS: normal to inspection Neuro: SENSORIUM/ORIENTATION: Yes alert Skin: COMMON NORMALS: no rashes or lesions noted GENERAL SKIN EXAM: no rashes or lesions noted Course Vital Signs: Vital signs: Vital Signs Pulse Rate 104 H 10/31/21 19:53 Respiratory Rate 18 10/31/21 19:47 Blood Pressure 118/94 10/31/21 19:11 Pulse Oximetry 95 10/31/21 19:47 MDM - Asthma Medical Decision Making 25-year-old male patient comes in today with complaints of increased difficulty breathing. On exam patient appears in no severe distress. Lungs had inspiratory and expiratory wheezing. Mild decrease air movement in the bases. Skin is warm and dry. Vital signs are normal. Differential diagnosis exacerbation of asthma, bronchiolitis, anxiety. No signs of severe illnesses noted. Patient was given a DuoNeb treatment and started on prednisone burst. Patient was written prescriptions for albuterol inhaler, Advair. Patient was recommended to follow-up with primary care. Patient was discharged with 1 albuterol inhaler. Discharge Plan Discharge Patient Disposition: Home Clinical Impression: Asthma exacerbation Qualifiers: Asthma severity: moderate Asthma persistence: persistent Qualified Code(s): J45.41 - Moderate persistent asthma with (acute) exacerbation Condition: Stable Prescriptions: New prednisone 20 mg tablet 60 mg PO DAILY 5 Days Qty: 15 1RF albuterol sulfate 90 mcg/actuation HFA aerosol inhaler 2 inh inhalation Q4H PRN (Reason: shortness of breath or wheezing) Qty: 8.5 2RF Advair Diskus 250-50 mcg/dose blister with device 1 inh inhalation BID Qty: 60 2RF No Action albuterol sulfate [ProAir HFA] 90 mcg/actuation HFA aerosol inhaler 2 puff INHALATION Q6H PRN (Reason: shortness of breath or wheezing) Qty: 8.5 0RF Medrol (Jossue) 4 mg tablets,dose pack See Rx Instructions .ROUTE .COMPLEX Qty: 21 0RF Rx Instructions: orally per package directions budesonide 180 mcg/actuation aerosol powdr breath activated 1 inh inhalation BID Qty: 1 0RF Rx Instructions: Generic form if available. albuterol sulfate 2.5 mg /3 mL (0.083 %) solution for nebulization 2.5 mg continuous nebulization Q4H PRN (Reason: Shortness Of Breath) 0RF Benadryl 50 mg Capsule 50 mg PO QID PRN (Reason: unknown) 0RF ibuprofen 200 mg Tablet 200 - 400 mg PO Q6H PRN (Reason: Pain) 0RF Tylenol 1 - 2 tab PO Q6H PRN (Reason: Pain) 0RF hydrocodone-acetaminophen 5-325 mg tablet 1 tab PO Q6H PRN (Reason: pain) Qty: 25 0RF Zofran 4 mg tablet 4 mg PO Q6H PRN (Reason: nausea and vomiting) Qty: 20 0RF tamsulosin 0.4 mg capsule 0.4 mg PO DAILY Qty: 20 0RF Discharge Orders: Discharge ED (Routine); Ordered 10/31/21 Ordered By: Nilson Arriola Referrals: Juan Antonio Dunn, [Primary Care Provider] - Discharge Diet: Usual diet Discharge Activity: Increase activity as tolerated Patient Instructions: Asthma (ED), Opioid Safety Activity Restrictions/Additional Instructions: Home and rest. Continue with medications as directed. Drink plenty of water. Good oral care after use of Advair inhaler. Follow-up with primary care for further instruction. Return to ER for new concerns or worsening symptoms. Stand Alone Forms: Work/School Release Coding Level of Care Code ED Clin Application Specialist for Pepper Umanzor
[2021-10-31 19:11] VITALS: BP 118/94; PULSE 107; RESP 18; O2SAT 94; BMI 26.2
[2021-10-31] MEDS: predniSONE 20 mg Tablet 60 MG PO (19:31)
[2021-10-31] MEDS: albuterol 8 gm MDI 2 PUFF INHALATION (19:45)
[2021-10-31] MEDS: ipratropium-albuterol 3 mL Neb INHALATION (19:45)
[2021-10-31 19:47] VITALS: PULSE 107; RESP 18; O2SAT 95
[2021-10-31 19:53] VITALS: PULSE 104
[2021-10-31 20:41] VITALS: BP 131/66; PULSE 104; RESP 22; O2SAT 93
== END 2021-10-31 20:43 | disposition home or self-care (01) ==
PROVIDERS: Emergency Provider Nurse Practitioner Family; PCP Electrodiagnostic Medicine
DX: J45.41 Moderate persistent asthma with (acute) exacerbation (principal); F17.290 Nicotine dependence, other tobacco product, uncomplicated
CPT/HCPCS: 94640; 99283; J3535; J7512

== ENCOUNTER 2022-02-12 20:19 | Emergency (ER) | payer OTHER, SELFPAY ==
[2022-02-12 20:32] VITALS: BP 138/75; PULSE 110; RESP 18; TEMP 36.6; O2SAT 99; BMI 26.9
--- NOTE | 2022-02-12 20:49 | ED_ITS ---
HPI - Back Pain/Injury General: Chief Complaint: Back Pain/Injury Stated Complaint: abd/back pain lower right side Time Seen by Provider: 02/12/22 20:49 History of Present Illness: Mr. Hudson is a 26-year-old gentleman who presents to the emergency department due to flank pain. He reports a history of back pain and degenerative disc changes and is unsure if this is related to that or something else. Symptoms have been more consistent and worse over the past few days. Endorses right-sided back and flank pain with some radiation towards the groin. Additionally notes some dysuria or urinary hesitancy. Does have a history of kidney stones. Overall intensity symptoms is moderate to severe. Course is intermittent in nature. Quality is stabbing. No radiation down the leg or new weakness/paresthesias. Denies known concern regarding new sexual partners or STIs. Mild testicular pain. no other specific changes in health, exacerbating, or alleviating factors identified. Onset (ago): day(s) Timing: progressively worsening Severity: severe Radiation: groin Exacerbating factors: movement and walking Review of Systems General: Reports: 10 or more systems reviewed and unremarkable except in HPI and below PFSH ED PFSH: Medical History No significant past medical history Surgical History History of appendectomy History of tonsillectomy Social History Smoking and tobacco status: current every day smoker cigarettes Packs smoked per day: 0.5 and e-cigarettes E-Cigarette Details: e-cigarette and with nicotine E-cig/vape details: Daily use Quit status (tobacco): has tried quititng Number of times tried to quit tobacco: 5 Second hand smoke exposure: Yes Smoking risk assessment/counseling performed?: No Alcohol intake: current Current gender identity: Male Physical Exam Const: COMMON NORMALS: alert GENERAL APPEARANCE: cooperative, well developed and in distress (uncomfortable appearance due to pain) HENMT: COMMON NORMALS: normocephalic and atraumatic HEAD & SCALP: normocephalic and atraumatic THROAT: posterior oropharynx normal Eye: COMMON NORMALS: conjunctivae normal CONJUNCTIVA: Yes conjunctivae normal SCLERA: sclerae normal Neck/C-Spine: COMMON NORMALS: supple GENERAL: Yes trachea midline Resp: COMMON NORMALS: normal respiratory effort and clear to auscultation bilaterally EFFORT & INSPECTION: Yes able to speak in complete sentences AUSCULTATION: clear to auscultation bilaterally Cardio: COMMON NORMALS: regular rate and regular rhythm RATE: regular rate RHYTHM: regular rhythm GI: COMMON NORMALS: Soft to palpation PALPATION: Yes Soft to palpation, Yes Tenderness to palpation present (GI), No Guarding due to palpation present (GI) and No Rigid due to palpation PERCUSSION: normal to percussion : COMMON NORMALS: Yes normal external exam, Yes Testes normal and Yes scrotum normal Extremity: GENERAL: Yes normal exam except as noted and No edema Neuro: COMMON NORMALS: moves all extremities SENSORIUM/ORIENTATION: Yes alert and No Orientation impaired Psych: COMMON NORMALS: mental status grossly normal and Normal thought process present THOUGHT PROCESS: Normal thought process present Course ED course: - Patient was seen and evaluated by me at bedside - Patient placed on cardiac monitors, IV access obtained - Initial evaluation notable for exam as above. - Labs and xrays personally interpreted by me - analgesia and antiemetic given - Labs notable for no leukocytosis, mild hemoconcentration. Metabolic panel without acute derangement requiring intervention, minimal transaminitis. Urinalysis without evidence of infection, mild hematuria present. - Imaging notable for CT with nonobstructing right renal calculi as well as small lymph nodes. Normal scrotal ultrasound. - Upon serial reexamination after treatment the patient was improved - Based on patient history, evaluation, and testing as interpreted the most likely cause of the patient's condition is abdominal pain of uncertain etiology possibly related to recently passed kidney stone given description of symptoms, presence of nonobstructing stones, and hematuria - The results of ED evaluation were discussed with the patient including prescriptions and/or symptomatic cares (if applicable) including appropriate and responsible use, followup plan, and return precautions. The patient verbalized understanding and felt safe for discharge. - Patient discharged in satisfactory condition. Note: Click bubbles or prepopulated gooden in note writing are used for assistance with data collection and billing and are inherently more limited than narrative and other text portions of this note. Please use narrative for additional clinical history and defer to narrative/free test for any case of contradictory information. If information appears in only free text or click bubble it should be considered present or absent as reported. Please contact note selling underwriter for clarifications of clinical information or contradictory information. MDM is a brief summary, contradictory or erroneous seeming information should be clarified and full note should be reviewed. Vital Signs: Vital signs: Vital Signs Temperature 97.9 F 02/12/22 20:32 Pulse Rate 89 02/12/22 23:49 Respiratory Rate 20 H 02/12/22 21:10 Blood Pressure 130/89 02/12/22 23:49 Pulse Oximetry 92 02/12/22 23:49 Oxygen Delivery Me thod 02/12/22 21:30 MDM - Back Pain/Injury Medical Decision Making 26-year-old gentleman presenting with abdominal pain. No clear etiology identified on ED evaluation. Possible recent passed kidney stone. Satisfactory for outpatient management. Medical Records I reviewed the patient's medical records. Labs I reviewed the patient's lab results. : 02/12/22 20:55 02/12/22 20:55 Radiology Impressions Abdomen/Pelvis CT 02/12/22 21:05 IMPRESSION: 1. There are no acute abdominal findings. 2. There are 3 nonobstructing right renal calculi present, the largest measuring 3.6 mm. 3. Small mesenteric and retroperitoneal lymph nodes are seen that are below CT criteria for lymphadenopathy. 4. There is no evidence for ureteral obstruction. Scrotum Ultrasound 02/12/22 22:40 IMPRESSION: Normal scrotal ultrasound. Laboratory Results WBC 8.9 10^3/uL (4.0-10.0) 02/12/22 20:55 RBC 5.45 10^6/uL (4.1-5.3) H 02/12/22 20:55 Hgb 16.7 g/dL (11.7-16.6) H 02/12/22 20:55 Hct 48.9 % (42.0-52.0) 02/12/22 20:55 MCV 89.7 fl (80-94) 02/12/22 20:55 MCH 30.6 pg (28.0-34.0) 02/12/22 20:55 MCHC 34.2 g/dL (30.0-36.0) 02/12/22 20:55 RDW 11.9 % (12.1-15.1) L 02/12/22 20:55 Plt Count 353 10^3/cmm (130-400) 02/12/22 20:55 MPV 10.5 fL (7.4-10.4) H 02/12/22 20: Neut % (Auto) 47.3 % 02/12/22 20:55 Lymph % (Auto) 34.8 % 02/12/22 20:55 [place] % (Auto) 10.6 % 02/12/22 20: Eos % (Auto) 6.7 % 02/12/22 20: Baso % (Auto) 0.4 % 02/12/22 20: Neut # (Auto) 4.20 10^3/uL (1.8-7.7) 02/12/22 20: Lymph # (Auto) 3.1 10^3/uL (0.8-4.8) 02/12/22 20: [place] # (Auto) 0.9 10^3/uL (0.2-0.9) 02/12/22 20: Eos # (Auto) 0.6 10^3/uL (0.0-0.8) 02/12/22 20: Baso # (Auto) 0.0 10^3/uL (0.0-0.1) 02/12/22 20: Nucleated RBC % (auto) 0 % 02/12/22: Nucleated RBCs # 0.0 /100WBC 02/12/22 20:55 Sodium 136 mmol/L (136-145) 02/12/22 20: Potassium 3.7 mmol/L (3.5-5.1) 02/12/22 20: Chloride 97 mmol/L (98-107) L 02/12/22 20:55 Carbon Dioxide 27 mmol/L (22-29) 02/12/22 20:55 Anion Gap 15.7 (5-19) 02/12/22 20: BUN 12 mg/dL (6-20) 02/12/22 20: Creatinine 0.8 mg/dL (0.7-1.2) 02/12/22 20: GFR Calculation 118.8 mL/min (90-130) 02/12/22 20: Glucose 82 mg/dL (65-115) 02/12/22 20: Calculated Osmolality 281 mOsm/kg (285-295) L 02/12/22 20:55 Calcium 10.1 mg/dL (8.5-10.5) 02/12/22 20:55 Total Bilirubin 0.5 mg/dL (0.15-1.2) 02/12/22 20:55 AST 44 U/L (0-40) H 02/12/22 20:55 ALT 40 U/L (0-41) 02/12/22 20: Alkaline Phosphatase 85 U/L (40-130) 02/12/22 20: Total Protein 6.9 g/dL (6.6-8.7) 02/12/22 20: Albumin 4.8 g/dL (3.5-5.2) 02/12/22 20: Globulin 2.1 g/dL (1.3-4.6) 02/12/22 20: Lipase 44 U/L (13-60) 02/12/22 20:55 Urine Color Yellow (Yellow) 02/12/22 20:45 Urine Appearance Clear (CLEAR) 02/12/22 20:45 Urine pH 7 (5-7) 02/12/22 20:45 Ur Specific [place] 1.015 (1.005-1.030) 02/12/22 20:45 Urine Protein Neg (Negative) 02/12/22 20:45 Urine Glucose (UA) Norm (Normal) 02/12/22 20:45 Urine Ketones Negative (Negative) 02/12/22 20:45 Urine Blood 2+ (Negative) H 02/12/22 20:45 Urine Nitrate Negative (Negative) 02/12/22 20:45 Urine Bilirubin Neg (Negative) 02/12/22 20:45 Urine Urobilinogen Neg mg/dL (Negative) 02/12/22 20:45 Ur Leukocyte Esterase Negative (Negative) 02/12/22 20:45 Urine RBC 5-10 /hpf (0-2) H 02/12/22 20:45 Urine WBC 0-4 /hpf (0-5) H 02/12/22 20:45 Ur Squamous Epith Cells 0-4 /hpf (0-5) H 02/12/22 20:45 Amorphous Sediment 1+ /hpf 02/12/22 20:45 Urine Bacteria Trace /hpf (NONE) 02/12/22 20:45 Urine Mucus Trace /hpf 02/12/22 20:45 Discharge Plan Discharge Patient Disposition: Home Clinical Impression: Acute flank pain, Back pain, Hematuria Condition: Stable Prescriptions: Continued tamsulosin 0.4 mg capsule 0.4 mg PO DAILY Qty: 14 0RF No Action albuterol sulfate [ProAir HFA] 90 mcg/actuation HFA aerosol inhaler 2 puff INHALATION Q6H PRN (Reason: shortness of breath or wheezing) Qty: 8.5 0RF Medrol (Jossue) 4 mg tablets,dose pack See Rx Instructions .ROUTE .COMPLEX Qty: 21 0RF Rx Instructions: orally per package directions budesonide 180 mcg/actuation aerosol powdr breath activated 1 inh inhalation BID Qty: 1 0RF Rx Instructions: Generic form if available. albuterol sulfate 2.5 mg /3 mL (0.083 %) solution for nebulization 2.5 mg continuous nebulization Q4H PRN (Reason: Shortness Of Breath) Benadryl 50 mg Capsule 50 mg PO QID PRN (Reason: unknown) ibuprofen 200 mg Tablet 200 - 400 mg PO Q6H PRN (Reason: Pain) Tylenol 1 - 2 tab PO Q6H PRN (Reason: Pain) hydrocodone-acetaminophen 5-325 mg tablet 1 tab PO Q6H PRN (Reason: pain) Qty: 25 0RF Zofran 4 mg tablet 4 mg PO Q6H PRN (Reason: nausea and vomiting) Qty: 20 0RF prednisone 20 mg tablet 60 mg PO DAILY 5 Days Qty: 15 1RF albuterol sulfate 90 mcg/actuation HFA aerosol inhaler 2 inh inhalation Q4H PRN (Reason: shortness of breath or wheezing) Qty: 8.5 2RF Advair Diskus 250-50 mcg/dose blister with device 1 inh inhalation BID Qty: 60 2RF Discharge Orders: Discharge ED (Routine); Ordered 02/12/22 Ordered By: Serafin Butterfield Referrals: Juan Antonio Dunn DO [Primary Care Provider] - Discharge Diet: Usual diet Discharge Activity: Resume usual activity Patient Instructions: Hematuria (ED), Flank Pain (ED), Opioid Safety Activity Restrictions/Additional Instructions: Thank you for visiting the emergency department. You were seen and evaluated for flank pain and back pain with hematuria. The exact cause of your symptoms is unclear. This may be related to either exacerbation of back pain with lumbar radiculopathy or perhaps a recently passed kidney stone. You may treat symptoms with [id number] medications however please do not exceed the daily recommended dosage. Please keep in mind that many namebrand medications contain the same active ingredients. Please follow-up with your primary care provider. If blood in urine persists I recommend follow-up with urology. Return to the emergency department for anything that you are concerned about and feel needs emergency department evaluation. 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
[2022-02-12 21:01] VITALS: BP 130/77; RESP 22; O2SAT 96
[2022-02-12 21:02] LABS: Add Urine Microscopic? YES; Bilirubin Urine Neg (Negative); Blood Urine 2+ (Negative); Glucose Urine UA Norm (Normal); Ketones Urine Negative (Negative); Leukocyte Esterase Urine Negative (Negative); Nitrate Urine Negative (Negative); Protein Urine Neg (Negative); Specific Gravity, Urine 1.015 (1.005-1.030); Urine Appearance Clear (CLEAR); Urine Color Yellow (Yellow); Urobilinogen Urine Neg (Negative); pH Urine 7 (5-7)
[2022-02-12 21:03] LABS: Bacteria Urine TRACE /hpf; Mucus Urine TRACE /hpf; Squamous Epithelial Cell Urine 0-4 /hpf (0-5); WBC Urine 0-4 /hpf (0-5)
[2022-02-12 21:04] LABS: Add Urine Culture? No; Amorphous Sediment Urine 1+ /hpf
--- NOTE | 2022-02-12 21:05 | CTR_ITS ---
PROCEDURE INFORMATION: Exam: CT Abdomen And Pelvis Without Contrast Exam date and time: 02/12/2022 9:49 PM Age: 26 years old Clinical indication: Abdominal pain; Right; Prior surgery; Surgery date: 6+ months; Surgery type: Appendix; Patient HX: RT flank pain with hematuria x 2 days; Additional info: R flank pain, hematuria TECHNIQUE: Imaging protocol: Computed tomography of the abdomen and pelvis without contrast. Radiation optimization: All CT scans at this facility use at least one of these dose optimization techniques: automated exposure control; mA and/or kV adjustment per patient size (includes targeted exams where dose is matched to clinical indication); or iterative reconstruction. COMPARISON: CT kidney stone [id number] 08/01/2020 11:08 AM RADIATION DOSE METRICS: Total DLP (mGy-cm): 536.75 FINDINGS: Liver: Normal. No mass. Gallbladder and bile ducts: Normal. No calcified stones. No ductal dilation. Pancreas: Normal. No ductal dilation. Spleen: Normal. No splenomegaly. Adrenal glands: Normal. No mass. Kidneys and ureters: There are 3 nonobstructing calculi seen within the right kidney, the largest is seen in the upper pole measuring 3.6 mm. Stomach and bowel: Unremarkable. No obstruction. No mucosal thickening. Appendix: Status post appendectomy. Intraperitoneal space: Unremarkable. No free air. No significant fluid collection. Vasculature: Unremarkable. No abdominal aortic aneurysm. Lymph nodes: Small mesenteric and retroperitoneal lymph nodes are seen that are below CT criteria for lymphadenopathy. Urinary bladder: Unremarkable as visualized. Reproductive: Unremarkable as visualized. Bones/joints: Unremarkable. No acute fracture. Soft tissues: Unremarkable. CT/CT kidney stone [id number] IMPRESSION: 1. There are no acute abdominal findings. 2. There are 3 nonobstructing right renal calculi present, the largest measuring 3.6 mm. 3. Small mesenteric and retroperitoneal lymph nodes are seen that are below CT criteria for lymphadenopathy. 4. There is no evidence for ureteral obstruction.
[2022-02-12 21:07] LABS: Basophils % 0.4 %; Eosinophils # 0.6 10^3/uL (0.0-0.8); Eosinophils % 6.7 %; Hematocrit 48.9 % (42.0-52.0); Hemoglobin 16.7 g/dL (11.7-16.6); Lymphocytes # 3.1 10^3/uL (0.8-4.8); Lymphocytes % 34.8 %; Mean Corpuscular HGB Conc 34.2 g/dL (30.0-36.0); Mean Corpuscular Hemoglobin 30.6 pg (28.0-34.0); Mean Corpuscular Volume 89.7 fl (80-94); Mean Platelet Volume 10.5 fL (7.4-10.4); Monocytes # 0.9 10^3/uL (0.2-0.9); Monocytes % 10.6 %; Neutrophils % 47.3 %; Nucleated Red Blood Cells % 0 %; Platelet Count 353 10^3/cmm (130-400); Red Blood Count 5.45 10^6/uL (4.1-5.3); Red Cell Distribution Width 11.9 % (12.1-15.1); White Blood Count 8.9 10^3/uL (4.0-10.0)
[2022-02-12 21:10] VITALS: RESP 20
[2022-02-12] MEDS: ondansetron 2 mg/ML SDV 2 mL 4 MG IVP (21:10)
[2022-02-12] MEDS: morphine 4 mg/mL SDV 1 mL IVP (21:10)
[2022-02-12 21:20] LABS: Alanine Aminotransferase 40 U/L (0-41); Albumin Level 4.8 g/dL (3.5-5.2); Alkaline Phosphatase 85 U/L (40-130); Aspartate Amino Transferase 44 U/L (0-40); Blood Urea Nitrogen 12 mg/dL (6-20); Calcium 10.1 mg/dL (8.5-10.5); Carbon Dioxide 27 mmol/L (22-29); Chloride 97 mmol/L (98-107); Globulin 2.1 g/dL (1.3-4.6); Glomerular Filtration Rate 118.8 mL/min (90-130); Glucose 82 mg/dL (65-115); Lipase 44 U/L (13-60); Osmolality Calculated 281 mOsm/kg (285-295); Sodium 136 mmol/L (136-145); Total Bilirubin 0.5 mg/dL (0.15-1.2); Total Protein 6.9 g/dL (6.6-8.7)
[2022-02-12 21:25] LABS: Anion Gap 15.7 (5-19); Potassium 3.7 mmol/L (3.5-5.1)
[2022-02-12 21:30] VITALS: BP 152/85; PULSE 104; O2SAT 97
--- NOTE | 2022-02-12 22:40 | USR_ITS ---
PROCEDURE INFORMATION: Exam: US Scrotum Exam date and time: 02/12/2022 10:59 PM Age: 26 years old Clinical indication: Scrotum pain; Additional info: R testicular pain/abd pain TECHNIQUE: Imaging protocol: Real-time ultrasound of the scrotum and contents with color Doppler and image documentation. COMPARISON: US scrotum [id number] 09/22/2019 1:52 PM FINDINGS: Right testicle: The right testis measures 4.7 x 2.1 x 2.7 cm yielding a volume of 13.7 cc.. No mass. No torsion. Normal vascular flow. PSV 12.9 cm/s, RI 047. Left testicle: Left testis measures 2.1 x 2.7 x 4.4 cm yielding a volume 11.5 cc. No mass. No torsion. Normal vascular flow. PSV 7.6 cm/s, RI 0.67. Epididymides: Normal. Scrotum: Normal. US/US scrotum [id number] IMPRESSION: Normal scrotal ultrasound.
[2022-02-12 23:00] VITALS: BP 130/89; PULSE 89; O2SAT 92
[2022-02-12 23:49] VITALS: BP 130/89; PULSE 89; O2SAT 92
== END 2022-02-12 23:35 | disposition home or self-care (01) ==
PROVIDERS: Emergency Provider Emergency Medicine; PCP Electrodiagnostic Medicine
DX: R10.9 Unspecified abdominal pain (principal); M54.9 Dorsalgia, unspecified; R31.9 Hematuria, unspecified; F17.210 Nicotine dependence, cigarettes, uncomplicated
CPT/HCPCS: 74176; 76870; 80053; 81001; 83690; 85025; 96374; 96375; 99285; J2270; J2405

== ENCOUNTER 2022-03-11 11:11 | Emergency (ER) | payer OTHER, SELFPAY ==
[2022-03-11 11:14] VITALS: BP 128/79; PULSE 115; RESP 16; TEMP 37.1; O2SAT 96
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
[2022-03-11 11:20] VITALS: BP 128/79; PULSE 115; RESP 16; TEMP 37.1; O2SAT 96
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
[2022-03-11] MEDS: ketorolac 30 mg/mL INJ IVP (11:36)
[2022-03-11] MEDS: orphenadrine 30 mg/mL Inj 2 mL 60 MG IVP (12:56)
== END 2022-03-11 12:57 | disposition home or self-care (01) ==
PROVIDERS: Emergency Provider Physician Assistant; PCP Electrodiagnostic Medicine
DX: S06.0X0A Concussion without loss of consciousness, initial encounter (principal); S39.012A Strain of muscle, fascia and tendon of lower back, initial encounter; S16.1XXA Strain of muscle, fascia and tendon at neck level, initial encounter; V49.88XA Car occupant (driver) (passenger) injured in other specified transport accidents, initial encounter
CPT/HCPCS: 70450; 71046; 72100; 72125; 96374; 96375; 99285; J1885; J2360

== ENCOUNTER 2022-04-21 10:02 | Emergency (ER) | payer OTHER, SELFPAY ==
[2022-04-21 10:08] VITALS: BP 123/86; PULSE 124; RESP 18; TEMP 37; O2SAT 99; BMI 27.3
--- NOTE | 2022-04-21 10:16 | W.ED.EXTPRO ---
HPI - Extremity Problem General: Chief complaint: Extremity Problem,Nontraumatic Stated complaint: cant lift Left arm Time Seen by Provider: 04/21/22 10:16 History of Present Illness: Mr. Hudson is a 26-year-old gentleman presenting to the emergency department due to shoulder pain. He reports getting vaccines yesterday in the left upper extremity. No associated immediate pain. Last night he started developing pain that is in the proximal left shoulder radiating down to the chest and distally to the arm. Intensity is moderate to severe. Course has persisted. Worse with range of motion and palpation. Denies vaccine reactions in the past. No other specific changes in health, exacerbating, or alleviating factors identified. Onset (ago): hour(s) Pain Consistency: constant Location: left and upper extremity Quality: burning and stabbing Radiation: proximal and distal Relieving factors: nothing Exacerbating factors: range of motion Review of Systems General: Reports: 10 or more systems reviewed and unremarkable except in HPI and below PFSH ED PFSH: Medical History No significant past medical history Surgical History History of appendectomy History of tonsillectomy Social History Smoking and tobacco status: current every day smoker cigarettes Packs smoked per day: 0.5 and e-cigarettes E-Cigarette Details: e-cigarette and with nicotine E-cig/vape details: Daily use Quit status (tobacco): has tried quititng Number of times tried to quit tobacco: 5 Second hand smoke exposure: Yes Smoking risk assessment/counseling performed?: No Alcohol intake: current Current gender identity: Male Physical Exam Const: COMMON NORMALS: alert GENERAL APPEARANCE: cooperative, well developed and in distress (uncomfortable due to pain) HENMT: COMMON NORMALS: normocephalic and atraumatic HEAD & SCALP: normocephalic and atraumatic Eye: COMMON NORMALS: conjunctivae normal CONJUNCTIVA: Yes conjunctivae normal SCLERA: sclerae normal Neck/C-Spine: COMMON NORMALS: supple GENERAL: Yes trachea midline Resp: COMMON NORMALS: normal respiratory effort EFFORT & INSPECTION: Yes able to speak in complete sentences Cardio: COMMON NORMALS: regular rate and regular rhythm RATE: regular rate RHYTHM: regular rhythm GI: COMMON NORMALS: Soft to palpation PALPATION: Yes Soft to palpation and No Tenderness to palpation present (GI) PERCUSSION: normal to percussion Back/Pelvis: OTHER: LUE: circulation intact, subjective sensory changes radiating to all fingers, movement intact. Extremity: GENERAL: Yes normal exam except as noted and No edema Neuro: COMMON NORMALS: moves all extremities SENSORIUM/ORIENTATION: Yes alert and No Orientation impaired Psych: COMMON NORMALS: mental status grossly normal and Normal thought process present THOUGHT PROCESS: Normal thought process present Course Vital Signs: Vital signs: Vital Signs Temperature 98.6 F 04/21/22 11:54 Pulse Rate 105 H 04/21/22 11:54 Respiratory Rate 18 04/21/22 11:54 Blood Pressure 123/86 04/21/22 11:54 Pulse Oximetry 99 04/21/22 11:54 MDM - Extremity (Nontraumatic) Medical Decision Making 26-year-old gentleman presenting with shoulder pain in the context of recent immunizations though patient did not have immediate pain with injections. Associated reported weakness appears on exam to actually be secondary to pain. No evidence of DVT or infection on exam, CMS is intact, no overlying skin lesions. No clear etiology of symptoms identified on exam. Symptom treatment ordered with significant improvement. X-rays reviewed and negative for acute pathology to explain symptoms. Etiology of patient's symptoms most likely related to postvaccination inflammatory condition not requiring ED or inpatient evaluation at this time. The results of ED evaluation were discussed with the patient including prescriptions and/or symptomatic cares (if applicable) including appropriate and responsible use, followup plan, and return precautions. The patient verbalized understanding and felt safe for discharge. Medical Records I reviewed the patient's medical records. Lab Data I reviewed the patient's lab results. Radiology Impressions Chest X-Ray 04/21/22 10:21 IMPRESSION: 1. No acute cardiopulmonary finding. Shoulder X-Ray 04/21/22 10:21 IMPRESSION: Negative left shoulder. Discharge Plan Discharge Patient Disposition: Home Clinical Impression: Acute shoulder pain Condition: Stable Prescriptions: New oxycodone 5 mg tablet 5 mg PO Q4H PRN (Reason: pain) Qty: 2 0RF No Action albuterol sulfate [ProAir HFA] 90 mcg/actuation HFA aerosol inhaler 2 puff INHALATION Q6H PRN (Reason: shortness of breath or wheezing) Qty: 8.5 0RF Medrol (Jossue) 4 mg tablets,dose pack See Rx Instructions .ROUTE .COMPLEX Qty: 21 0RF Rx Instructions: orally per package directions budesonide 180 mcg/actuation aerosol powdr breath activated 1 inh inhalation BID Qty: 1 0RF Rx Instructions: Generic form if available. albuterol sulfate 2.5 mg /3 mL (0.083 %) solution for nebulization 2.5 mg continuous nebulization Q4H PRN (Reason: Shortness Of Breath) Benadryl 50 mg Capsule 50 mg PO QID PRN (Reason: unknown) ibuprofen 200 mg Tablet 200 - 400 mg PO Q6H PRN (Reason: Pain) Tylenol 1 - 2 tab PO Q6H PRN (Reason: Pain) hydrocodone-acetaminophen 5-325 mg tablet 1 tab PO Q6H PRN (Reason: pain) Qty: 25 0RF Zofran 4 mg tablet 4 mg PO Q6H PRN (Reason: nausea and vomiting) Qty: 20 0RF prednisone 20 mg tablet 60 mg PO DAILY 5 Days Qty: 15 1RF albuterol sulfate 90 mcg/actuation HFA aerosol inhaler 2 inh inhalation Q4H PRN (Reason: shortness of breath or wheezing) Qty: 8.5 2RF Advair Diskus 250-50 mcg/dose blister with device 1 inh inhalation BID Qty: 60 2RF tamsulosin 0.4 mg capsule 0.4 mg PO DAILY Qty: 14 0RF methocarbamol 750 mg tablet 750 mg PO Q8H Qty: 21 0RF Discharge Orders: Discharge ED (Routine); Ordered 04/21/22 Ordered By: Serafin Butterfield Referrals: Juan Antonio Dunn DO [Primary Care Provider] - Discharge Diet: Usual diet Discharge Activity: Increase activity as tolerated Patient Instructions: Shoulder Pain (ED), Opioid Safety, Pain Management Activity Restrictions/Additional Instructions: Thank you for visiting the emergency department. You were seen and evaluated for shoulder pain. The exact cause of your symptoms is unclear though does not appear to need hospitalization at this time. I would expect improvement in the next few days. Please continue to use [id number] medications and other symptomatic treatments. Please follow-up with a primary care provider. You may require further evaluation in the outpatient setting if symptoms persist. Return to the emergency department for uncontrolled symptoms or anything else that you are concerned about a feel needs emergency department evaluation. 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
--- NOTE | 2022-04-21 10:21 | XR_ITS ---
WS: [id number] Exam: XR shoulder LT min 2V* [id number] Date/Time of Exam: 04/21/2022 10:41 AM Reason For Exam: shoulder pain The projections of the shoulder reveal no fractures, anomalies, soft tissue swelling, or calcificatio ns. There is normal bony alignment. No irregularity of the bony architecture is noted. XR/XR shoulder LT min 2V* [id number] IMPRESSION: Negative left shoulder.
--- NOTE | 2022-04-21 10:21 | XR_ITS ---
WS: [id number] Exam: XR chest 1V portable [id number] Date/Time of Exam: 04/21/2022 10:41 AM Reason For Exam: pain Comparison 03/11/2022. The lungs are clear and fully inflated. Normal cardiomediastinal silhouette. Bony structures are inta ct. Some motion artifact is present. XR/XR chest 1V portable [id number] IMPRESSION: 1. No acute cardiopulmonary finding.
[2022-04-21 10:37] VITALS: RESP 18
[2022-04-21] MEDS: oxyCODONE 5 mg IR Tab/Cap PO (10:37)
[2022-04-21] MEDS: acetaminophen 500 mg Tablet 1000 MG PO (10:38)
[2022-04-21] MEDS: lidocaine 5% Patch 1 PATCH TOPICAL (10:38)
[2022-04-21 11:07] VITALS: BP 123/86; PULSE 105; RESP 18; TEMP 37; O2SAT 99
[2022-04-21 11:54] VITALS: BP 123/86; PULSE 105; RESP 18; TEMP 37; O2SAT 99
== END 2022-04-21 11:56 | disposition home or self-care (01) ==
PROVIDERS: Emergency Provider Emergency Medicine; PCP Electrodiagnostic Medicine
DX: M25.512 Pain in left shoulder (principal); F17.210 Nicotine dependence, cigarettes, uncomplicated
CPT/HCPCS: 71045; 73030; 99283

== ENCOUNTER → 2022-06-07 11:23 | Outpatient (BNVA) | payer OTHER, SELFPAY | PROVIDERS: PCP Electrodiagnostic Medicine; Referring Provider Family Medicine; Visit Provider Orthopaedic Surgery | DX: M54.9 Dorsalgia, unspecified (principal); M48.54XA Collapsed vertebra, not elsewhere classified, thoracic region, initial encounter for fracture | CPT/HCPCS: 72070; 72120 ==

== ENCOUNTER 2022-12-12 11:56 | Emergency (ER) | payer OTHER, SELFPAY ==
[2022-12-12 12:02] VITALS: BP 134/97; PULSE 106; RESP 18; TEMP 36.8; O2SAT 98
--- NOTE | 2022-12-12 12:19 | W.ED.SKABFB ---
HPI - Skin/Abscess/Foreign Bdy General: Chief complaint: Skin/Abscess/Foreign Body Stated complaint: Poison Gregoria Time Seen by Provider: 12/12/22 12:07 History of Present Illness: Patient is a 26-year-old male who comes to the ED with a pruritic rash. Patient's says the rash started about a week ago and he thinks he got exposed or [place] in [place] He has been treating his rash with Benadryl and calamine lotion. He says it is continued to progress and move up his legs bilaterally. He has some spots on his back and also has a rash that developed on the left side of his face. Denies any other symptoms. Associated symptoms: Deny chills, fever(s), nausea or vomiting Review of Systems Const: Denies: fever(s), chills or fatigue Eyes: Denies: change in vision or eye discomfort ENMT: Denies: throat pain, odynophagia, nasal discharge or nasal congestion Card: Denies: chest pain, palpitations, edema, swelling of feet/ankles, dyspnea on exertion or orthopnea Resp: Denies: dyspnea, productive cough or non-productive cough GI: Denies: abdominal pain, nausea, vomiting, diarrhea, constipation or hematochezia : Denies: flank pain, difficulty urinating, dysuria or hematuria Musc: Denies: neck pain, back pain or extremity swelling Skin/Breast: Reports: rash; Denies: new lesions Neuro: Denies: headache(s), numbness in extremities or weakness in extremities [facility] ED PFSH: Medical History No significant past medical history Surgical History History of appendectomy History of tonsillectomy Social History Smoking and tobacco status: current every day smoker cigarettes Packs smoked per day: 0.5 and e-cigarettes E-Cigarette Details: e-cigarette and with nicotine E-cig/vape details: Daily use Quit status (tobacco): has tried quititng Number of times tried to quit tobacco: 5 Second hand smoke exposure: Yes Smoking risk assessment/counseling performed?: No Alcohol intake: current Current gender identity: Male Physical Exam Const: COMMON NORMALS: no acute distress, patient oriented x3, healthy appearing and alert HENMT: COMMON NORMALS: normocephalic HEAD & SCALP: normocephalic MOUTH: Normal oral and palatal mucosa present THROAT: posterior oropharynx normal and uvula midline Neck/C-Spine: COMMON NORMALS: supple GENERAL: Yes normal visual inspection Resp: COMMON NORMALS: normal respiratory effort, No retractions, No use of accessory muscles and clear to auscultation bilaterally AUSCULTATION: clear to auscultation bilaterally Cardio: COMMON NORMALS: regular rate, regular rhythm, S1 normal heart sound present, S2 normal heart sound present, No gallops present (Cardio), No clicks present (Cardio), No murmurs present (Cardio) and Peripheral pulses 2+ throughout RATE: regular rate RHYTHM: regular rhythm HEART SOUNDS: S1 normal heart sound present and S2 normal heart sound present PERIPHERAL PULSES: Peripheral pulses 2+ throughout GI: COMMON NORMALS: Normal to inspection, nondistended, normoactive bowel sounds present, Soft to palpation, non-tender and no masses PALPATION: Yes Soft to palpation : COMMON NORMALS: Yes no CVA tenderness BLADDER/KIDNEY EXAM: Yes no CVA tenderness Back/Pelvis: COMMON NORMALS: no CVA tenderness Extremity: GENERAL: Yes normal exam except as noted Neuro: COMMON NORMALS: patient oriented x3 SENSORIUM/ORIENTATION: Yes alert GAIT: Yes Normal gait present Skin: NARRATIVE SKIN EXAM: Patient has raised erythemic maculopapular linear rash throughout lower extremities bilaterally. He does have some areas where he scratched and opened up some sores on his skin. There is a little bit of erythema, warmth and tenderness to some areas of rash which could suggest some developing cellulitis. GENERAL SKIN EXAM: dry skin Course Vital Signs: Vital signs: Vital Signs Temperature 98.3 F 12/12/22 12:02 Pulse Rate 106 H 12/12/22 12:02 Respiratory Rate 18 12/12/22 12:02 Blood Pressure 134/97 12/12/22 12:02 Pulse Oximetry 98 12/12/22 12:02 Oxygen Delivery Me thod Room Air 12/12/22 12:02 MDM - Skin/Abscess/Foreign Bdy Medicial Decision Making Patient is a 26-year-old male who comes to the ED with a pruritic rash. Patient's says the rash started about a week ago and he thinks he got exposed or [place] in [place] He has been treating his rash with Benadryl and calamine lotion. He says it is continued to progress and move up his legs bilaterally. He has some spots on his back and also has a rash that developed on the left side of his face. Denies any other symptoms. Vital stable. patient has raised erythemic maculopapular linear rash throughout lower extremities bilaterally. He does have some areas where he scratched and opened up some sores on his skin. There is a little bit of erythema, warmth and tenderness to some areas of rash which could suggest some developing cellulitis. Patient was diagnosed with contact dermatitis due to poison gregoria and he was given a dose of IM Kenalog here in the ED and was sent home with a prescription for steroid Dosepak and an antibiotic for possible cellulitis developing secondary to rash. Return to ED precautions given. Follow-up with PCP in the next week for reevaluation. Patient understood and agreed with plan. Discharge Plan Discharge Patient Disposition: Home Clinical Impression: Contact dermatitis due to poison gregoria Cellulitis Qualifiers: Site of cellulitis: extremity Site of cellulitis of extremity: lower extremity Laterality: unspecified laterality Qualified Code(s): L03.119 - Cellulitis of unspecified part of limb Condition: Stable Prescriptions: New Medrol (Jossue) 4 mg tablets,dose pack See Rx Instructions .ROUTE .COMPLEX Qty: 21 0RF Rx Instructions: orally per package directions cephalexin 500 mg capsule 500 mg PO Q6H 10 Days Qty: 40 0RF No Action albuterol sulfate [ProAir HFA] 90 mcg/actuation HFA aerosol inhaler 2 puff INHALATION Q6H PRN (Reason: shortness of breath or wheezing) Qty: 8.5 0RF Medrol (Jossue) 4 mg tablets,dose pack See Rx Instructions .ROUTE .COMPLEX Qty: 21 0RF Rx Instructions: orally per package directions budesonide 180 mcg/actuation aerosol powdr breath activated 1 inh inhalation BID Qty: 1 0RF Rx Instructions: Generic form if available. albuterol sulfate 2.5 mg /3 mL (0.083 %) solution for nebulization 2.5 mg continuous nebulization Q4H PRN (Reason: Shortness Of Breath) Benadryl 50 mg Capsule 50 mg PO QID PRN (Reason: unknown) ibuprofen 200 mg Tablet 200 - 400 mg PO Q6H PRN (Reason: Pain) Tylenol 1 - 2 tab PO Q6H PRN (Reason: Pain) hydrocodone-acetaminophen 5-325 mg tablet 1 tab PO Q6H PRN (Reason: pain) Qty: 25 0RF Zofran 4 mg tablet 4 mg PO Q6H PRN (Reason: nausea and vomiting) Qty: 20 0RF prednisone 20 mg tablet 60 mg PO DAILY 5 Days Qty: 15 1RF albuterol sulfate 90 mcg/actuation HFA aerosol inhaler 2 inh inhalation Q4H PRN (Reason: shortness of breath or wheezing) Qty: 8.5 2RF Advair Diskus 250-50 mcg/dose blister with device 1 inh inhalation BID Qty: 60 2RF tamsulosin 0.4 mg capsule 0.4 mg PO DAILY Qty: 14 0RF methocarbamol 750 mg tablet 750 mg PO Q8H Qty: 21 0RF oxycodone 5 mg tablet 5 mg PO Q4H PRN (Reason: pain) Qty: 2 0RF Discharge Orders: Discharge ED (Routine); Ordered 12/12/22 Ordered By: Chaka Madrigal Referrals: Juan Antonio Dunn DO [Primary Care Provider] - Discharge Diet: Regular Discharge Activity: Increase activity as tolerated Patient Instructions: Cassandra Gregoria (ED) Activity Restrictions/Additional Instructions: Follow-up with medical provider as directed in the next 5 to 7 days for reevaluation. Wait about 3 days before starting to take your Medrol Dosepak. Continue applying [id number] creams and ointments to help with rash. Take medications as prescribed. Return to the ER or your medical provider if condition worsens. Please read and understand discharge instructions. Thank you for choosing [facility] for your healthcare needs today. Please realize this is an emergency room and that we are providing you with a medical screening exam and this may not be complete and all inclusive of all the testing and or work up that you may need to determine your ailment or severity of your illness. It is very important that you follow up as instructed or that you return to the Emergency Department should you have concerns or if your condition changes or worsens in any way. Coding Level of Care Code ED Doper Operator for Pepper Umanzor
[2022-12-12] MEDS: triamcinolone 40 mg/mL SDV IM (12:51)
[2022-12-12 12:54] VITALS: BP 141/87; PULSE 87; RESP 16; O2SAT 98
== END 2022-12-12 12:56 | disposition home or self-care (01) ==
PROVIDERS: Emergency Provider Physician Assistant; PCP Electrodiagnostic Medicine
DX: L23.7 Allergic contact dermatitis due to plants, except food (principal); L03.119 Cellulitis of unspecified part of limb; F17.210 Nicotine dependence, cigarettes, uncomplicated; F17.290 Nicotine dependence, other tobacco product, uncomplicated
CPT/HCPCS: 96372; 99284; J3301

== ENCOUNTER 2023-05-21 09:31 | Emergency (ER) | payer OTHER, SELFPAY ==
[2023-05-21 09:44] VITALS: BP 127/66; PULSE 96; TEMP 36.6; O2SAT 97; BMI 29.5
--- NOTE | 2023-05-21 09:47 | ECG_ITS ---
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 [email or web address]
== END 2023-05-21 11:14 | disposition left against medical advice (07) ==
PROVIDERS: Emergency Provider Family Medicine; PCP Electrodiagnostic Medicine
DX: Z53.21 Procedure and treatment not carried out due to patient leaving prior to being seen by health care provider (principal)
CPT/HCPCS: 93005; 93010

== ENCOUNTER 2023-06-08 18:04 | Emergency (ER) | payer OTHER, SELFPAY ==
[2023-06-08 18:10] VITALS: BP 122/82; PULSE 71; RESP 18; TEMP 36.7; O2SAT 99; BMI 29.5
--- NOTE | 2023-06-08 18:20 | ED_ITS ---
HPI - Extremity Problem General: Chief complaint: Extremity Problem,Nontraumatic Stated complaint: left leg toe pain Time Seen by Provider: 06/08/23 18:19 History of Present Illness: 27-year-old male patient comes in today with a sore to the middle toe of his left foot. On the lateral aspect of the toe patient has a wound that has been there for about 1 week. Patient reported increasing redness and swelling noted to the wound this morning. Patient had to work on the wound but has noticed since arriving to the ER the swelling has improved but now there is a small ulceration to the lateral aspect of the toe. No streaking is noted. Patient reports some chills and thinks he might of had a fever. Patient has a history of asthma. Patient has no other chronic medical problems. Patient denies diabetes. Patient does smoke cigarettes. Associated symptoms: Deny chest pain or fever(s) Review of Systems General: Reports: 10 or more systems reviewed and unremarkable except in HPI and below Const: Denies: fever(s) Card: Denies: chest pain Resp: Denies: dyspnea GI: Denies: nausea or vomiting : Denies: difficulty urinating Musc: Reports: extremity pain and extremity swelling Skin/Breast: Reports: changing lesions PFSH ED PFSH: Medical History No significant past medical history Surgical History History of appendectomy History of tonsillectomy Social History Smoking and tobacco/nicotine status: current every day tobacco/nicotine user cigarettes Packs smoked per day: 0.5 and e-cigarettes E-Cigarette Details: e- cigarette and with nicotine E-cig/vape details: Daily use Quit status (tobacco/nicotine): has tried quititng Number of times tried to quit tobacco: 5 Second hand smoke exposure: Yes Alcohol intake: current Current gender identity: Male Physical Exam Const: COMMON NORMALS: alert HENMT: COMMON NORMALS: normocephalic HEAD & SCALP: normocephalic Neck/C-Spine: COMMON NORMALS: full ROM Resp: COMMON NORMALS: normal respiratory effort and clear to auscultation bilaterally AUSCULTATION: clear to auscultation bilaterally Cardio: COMMON NORMALS: regular rate RATE: regular rate Back/Pelvis: COMMON NORMALS: thoracic and lumbar spine normal to inspection Extremity: COMMON NORMALS: full ROM LEFT LOWER EXTREMITY: Yes foot & digits (Small ulcer with surrounding erythema and swelling to the middle toe) Neuro: SENSORIUM/ORIENTATION: Yes alert Skin: NARRATIVE SKIN EXAM: Small lesion/ulcer to the lateral aspect of the distal middle toe of the left foot. Mild redness and swelling noted. No streaking is noted going up the extremity. No significant swelling or edema is noted to the foot or ankle. Course Vital Signs: Vital signs: Vital Signs Temperature 98.0 F 06/08/23 18:10 Pulse Rate 89 06/08/23 18:46 Respiratory Rate 16 06/08/23 18:46 Blood Pressure 128/86 06/08/23 18:46 Pulse Oximetry 98 06/08/23 18:46 Oxygen Delivery Me thod Room Air 06/08/23 18:46 MDM - Extremity (Nontraumatic) Medical Decision Making 27-year-old male patient comes in today with swelling and tenderness to the middle toe of the left foot. On exam patient has a area of redness and erythema surrounding a ulceration to the middle toe of the left foot. Patient denies any diabetes. Differential diagnosis includes but not limited to cellulitis, infected wound, osteomyelitis. X-ray of the foot was unremarkable. Patient will be given mupirocin ointment to use to the open wound. Patient will be covered with Augmentin for further treatment of wound infection. Recommend follow-up with primary care or return to the ER for worsening symptoms. XR interpretation done by ED provider, pending radiology final review Discharge Plan Discharge Patient Disposition: Home Clinical Impression: Open wound of toe Qualifiers: Encounter type: initial encounter Qualified Code(s): S91.109A - Unspecified open wound of unspecified toe(s) without damage to nail, initial encounter Condition: Stable Prescriptions: New amoxicillin-pot clavulanate 875-125 mg tablet 1 tab PO BID Qty: 14 0RF No Action albuterol sulfate [ProAir HFA] 90 mcg/actuation HFA aerosol inhaler 2 puff INHALATION Q6H PRN (Reason: shortness of breath or wheezing) Qty: 8.5 0RF Medrol (Jossue) 4 mg tablets,dose pack See Rx Instructions .ROUTE .COMPLEX Qty: 21 0RF Rx Instructions: orally per package directions budesonide 180 mcg/actuation aerosol powdr breath activated 1 inh inhalation BID Qty: 1 0RF Rx Instructions: Generic form if available. albuterol sulfate 2.5 mg /3 mL (0.083 %) solution for nebulization 2.5 mg continuous nebulization Q4H PRN (Reason: Shortness Of Breath) Benadryl 50 mg Capsule 50 mg PO QID PRN (Reason: unknown) ibuprofen 200 mg Tablet 200 - 400 mg PO Q6H PRN (Reason: Pain) Tylenol 1 - 2 tab PO Q6H PRN (Reason: Pain) hydrocodone-acetaminophen 5-325 mg tablet 1 tab PO Q6H PRN (Reason: pain) Qty: 25 0RF Zofran 4 mg tablet 4 mg PO Q6H PRN (Reason: nausea and vomiting) Qty: 20 0RF prednisone 20 mg tablet 60 mg PO DAILY 5 Days Qty: 15 1RF albuterol sulfate 90 mcg/actuation HFA aerosol inhaler 2 inh inhalation Q4H PRN (Reason: shortness of breath or wheezing) Qty: 8.5 2RF Advair Diskus 250-50 mcg/dose blister with device 1 inh inhalation BID Qty: 60 2RF tamsulosin 0.4 mg capsule 0.4 mg PO DAILY Qty: 14 0RF methocarbamol 750 mg tablet 750 mg PO Q8H Qty: 21 0RF oxycodone 5 mg tablet 5 mg PO Q4H PRN (Reason: pain) Qty: 2 0RF Medrol (Jossue) 4 mg tablets,dose pack See Rx Instructions .ROUTE .COMPLEX Qty: 21 0RF Rx Instructions: orally per package directions Discharge Orders: Discharge ED (Routine); Ordered 06/08/23 Ordered By: Nilson Arriola Referrals: Juan Antonio Dunn DO [Primary Care Provider] - Discharge Diet: Usual diet Discharge Activity: Increase activity as tolerated Patient Instructions: Wound Care (General) Activity Restrictions/Additional Instructions: Clean wound gently with mild soap and water twice a day. Apply mupirocin ointment and cover wound with a clean sock. Take oral antibiotics as directed for the next 7 days. Follow-up with primary care for further instructions. Use acetaminophen and/or ibuprofen for pain. Return to ER for new concerns such as high fever greater than 100.4, increasing redness and swelling to the foot, or new concerns. Coding Level of Care Code ED Tank Systems Maintainer for Pepper Umanzor
--- NOTE | 2023-06-08 18:44 | XRR_ITS ---
PROCEDURE INFORMATION: Exam: XR Left Foot Exam date and time: 06/08/2023 7:07 PM Age: 27 years old Clinical indication: Swelling, leg or foot; Additional info: Infected wound TECHNIQUE: Imaging protocol: Radiologic exam of the left foot. Views: 3 or more views. COMPARISON: No relevant prior studies available. FINDINGS: Bones/joints: Normal. Soft tissues: Normal. XR/XR foot LT min 3V* [id number] IMPRESSION: No acute findings.
[2023-06-08 18:46] VITALS: BP 128/86; PULSE 89; RESP 16; O2SAT 98
[2023-06-08] MEDS: amoxicillin-clav 875-125 mg Tablet 1 TAB PO (18:53)
[2023-06-08] MEDS: mupirocin oint 22 gm 1 APPLIC TOPICAL (18:54)
[2023-06-08 19:46] VITALS: BP 138/84; PULSE 88; RESP 16; O2SAT 98
== END 2023-06-08 19:48 | disposition home or self-care (01) ==
PROVIDERS: Emergency Provider Nurse Practitioner Family; PCP Electrodiagnostic Medicine
DX: L97.529 Non-pressure chronic ulcer of other part of left foot with unspecified severity (principal); F17.210 Nicotine dependence, cigarettes, uncomplicated; F17.290 Nicotine dependence, other tobacco product, uncomplicated
CPT/HCPCS: 73630; 99283

== ENCOUNTER 2023-08-13 19:29 | Emergency (ER) | payer OTHER, SELFPAY ==
[2023-08-13 19:44] VITALS: BP 153/99; PULSE 107; RESP 16; TEMP 37; O2SAT 98; BMI 29.5
--- NOTE | 2023-08-13 20:34 | CTR_ITS ---
PROCEDURE INFORMATION: Exam: CT Abdomen And Pelvis Without Contrast Exam date and time: 08/13/2023 8:59 PM Age: 27 years old Clinical indication: Abdominal pain; Right; Prior surgery; Surgery date: 6+ months; Surgery type: Appy; Patient HX: C/O RT flank pain TECHNIQUE: Imaging protocol: Computed tomography of the abdomen and pelvis without contrast. Radiation optimization: All CT scans at this facility use at least one of these dose optimization techniques: automated exposure control; mA and/or kV adjustment per patient size (includes targeted exams where dose is matched to clinical indication); or iterative reconstruction. COMPARISON: CT kidney stone [id number] 02/12/2022 9:49 PM RADIATION DOSE METRICS: Total DLP (mGy-cm): 749.51 FINDINGS: Liver: Hepatic steatosis and hepatomegaly. Gallbladder and bile ducts: Normal. No calcified stones. No ductal dilation. Pancreas: Normal. No ductal dilation. Spleen: Normal. No splenomegaly. Adrenal glands: Normal. No mass. Kidneys and ureters: Bilateral mild perinephric edema, please correlate for pyelonephritis versus renal sufficiency. Right kidney nonobstructing calyceal stone. Stomach and bowel: Unremarkable. No obstruction. No mucosal thickening. Appendix: No evidence of appendicitis. Intraperitoneal space: Unremarkable. No free air. No significant fluid collection. Vasculature: Unremarkable. No abdominal aortic aneurysm. Lymph nodes: Unremarkable. No enlarged lymph nodes. Urinary bladder: Unremarkable as visualized. Reproductive: Unremarkable as visualized. Bones/joints: Right femur intertrochanteric sclerotic chronic nonaggressive bony lesion likely reflecting a bone island similar to prior exam. Soft tissues: Unremarkable. CT/CT kidney stone [id number] IMPRESSION: 1. Bilateral mild perinephric edema, please correlate for pyelonephritis versus renal sufficiency. 2. Right kidney nonobstructing calyceal stone. 3. Hepatic steatosis and hepatomegaly.
--- NOTE | 2023-08-13 20:35 | ED_ITS ---
HPI - Back Pain/Injury 2 General: Chief Complaint: Back Pain/Injury Stated Complaint: Back Pain Time Seen by Provider: 08/13/23 20:21 Source: patient Mode of arrival: ambulatory Limitations: no limitations History of Present Illness: 27-year-old male states that he has had right lower back and flank pain over the last 2 days states that sharp pain worse with movement improved with rest. He states he is concerned he may have a kidney stone or kidney infection has had history of kidney stones denies any vomiting denies any fevers. Associated symptoms: Deny abdominal pain, chills, dysuria, fever(s), nausea or vomiting Review of Systems 2 Const: Denies: fever(s), chills, body aches or change in appetite ENMT: Denies: throat pain or dental pain Card: Denies: chest pain Resp: Denies: dyspnea GI: Denies: abdominal pain, nausea, vomiting or diarrhea : Reports: flank pain; Denies: dysuria Musc: Reports: back pain; Denies: neck pain Skin/Breast: Denies: rash Neuro: Denies: headache(s) PFSH ED 2 PFSH: Medical History No significant past medical history Surgical History History of appendectomy History of tonsillectomy Social History Smoking and tobacco/nicotine status: current every day tobacco/nicotine user cigarettes Packs smoked per day: 0.5 and e-cigarettes E-Cigarette Details: e- cigarette and with nicotine E-cig/vape details: Daily use Quit status (tobacco/nicotine): has tried quititng Number of times tried to quit tobacco: 5 Second hand smoke exposure: Yes Alcohol intake: current Current gender identity: Male Physical Exam 2 Const: COMMON NORMALS: no acute distress, patient oriented x3 and healthy appearing HENMT: COMMON NORMALS: normocephalic and atraumatic HEAD & SCALP: n ormocephalic and atraumatic Neck/C-Spine: COMMON NORMALS: full ROM and supple Chest: COMMONS NORMALS: normal inspection of the chest Resp: COMMON NORMALS: normal respiratory effort Cardio: COMMON NORMALS: regular rate, regular rhythm and No murmurs present (Cardio) RATE: regular rate RHYTHM: regular rhythm GI: COMMON NORMALS: Normal to inspection, nondistended, normoactive bowel sounds present, Soft to palpation, non-tender and no masses PALPATION: Yes Soft to palpation : OTHER: right lower back tenderness Extremity: COMMON NORMALS: normal to inspection and full ROM Neuro: COMMON NORMALS: patient oriented x3, moves all extremities and no focal motor deficits Psych: COMMON NORMALS: mental status grossly normal, Normal thought process present and cooperative THOUGHT PROCESS: Normal thought process present Skin: COMMON NORMALS: no rashes or lesions noted and no wounds GENERAL SKIN EXAM: no rashes or lesions noted Course 2 Vital Signs: Vital signs: Vital Signs Temperature 98.6 F 08/13/23 19:44 Pulse Rate 107 H 08/13/23 19:44 Respiratory Rate 21 H 08/13/23 22:02 Blood Pressure 153/99 08/13/23 19:44 Pulse Oximetry 98 08/13/23 22:02 Oxygen Delivery Me thod Room Air 08/13/23 19:44 MDM - Back Pain/Injury Medical Decision Making Patient presents for low back pains likely muscular in nature he is point tender he has no signs of UTI on his urine he does have a mildly elevated white count but he is on steroids currently likely causing leukocytosis. CT showed no kidney stone he stable for discharge we will place him on Naprosyn Robaxin he is to follow-up with his PCP as scheduled next week and return if worsening Medical Records I reviewed the patient's medical records. Labs I reviewed the patient's lab results. 08/13/23 20:48 08/13/23 20:48 Radiology Impressions Abdomen/Pelvis CT 08/13/23 20:34 IMPRESSION: 1. Bilateral mild perinephric edema, please correlate for pyelonephritis versus renal sufficiency. 2. Right kidney nonobstructing calyceal stone. 3. Hepatic steatosis and hepatomegaly. Laboratory Results WBC 15.03 10^3/uL (3.29-11.43) H 08/13/23 20:48 RBC 5.12 10^6/uL (3.85-5.65) 08/13/23 20:48 Hgb 16.00 g/dL (11.27-16.99) 08/13/23 20:48 Hct 48.0 % (37-53) 08/13/23 20:48 MCV 93.8 fl (82-101) 08/13/23 20:48 MCH 31.3 pg (27-33) 08/13/23 20:48 MCHC 33.3 g/dL (30-55) 08/13/23 20:48 RDW 11.9 % (12.1-15.1) L 08/13/23 20:48 Plt Count 253 10^3/cmm (157-399) 08/13/23 20:48 MPV 10.0 fL (7.4-10.4) 08/13/23 20:48 Neut % (Auto) 83.5 % 08/13/23 20:48 Lymph % (Auto) 9.4 % 08/13/23 20:48 Door % (Auto) 5.7 % 08/13/23 20:48 Eos % (Auto) 0.8 % 08/13/23 20:48 Baso % (Auto) 0.2 % 08/13/23 20:48 Neut # (Auto) 12.54 10^3/uL (1.8-7.7) H 08/13/23 20:48 Lymph # (Auto) 1.4 10^3/uL (0.8-4.8) 08/13/23 20:48 Door # (Auto) 0.9 10^3/uL (0.2-0.9) 08/13/23 20:48 Eos # (Auto) 0.1 10^3/uL (0.0-0.8) 08/13/23 20:48 Baso # (Auto) 0.0 10^3/uL (0.0-0.1) 08/13/23 20:48 Nucleated RBC % (auto) 0 % 08/13/23 20:48 Nucleated RBCs # 0.0 /100WBC 08/13/23 20:48 Sodium 135 mmol/L (136-145) L 08/13/23 20:48 Potassium 4.0 mmol/L (3.5-5.1) 08/13/23 20:48 Chloride 99 mmol/L (98-107) 08/13/23 20:48 Carbon Dioxide 23 mmol/L (22-29) 08/13/23 20:48 Anion Gap 17.0 (5-19) 08/13/23 20:48 BUN 21 mg/dL (6-20) H 08/13/23 20:48 Creatinine 1.4 mg/dL (0.7-1.2) H 08/13/23 20:48 GFR Calculation 61.7 mL/min (90-130) L 08/13/23 20:48 Glucose 103 mg/dL (65-115) 08/13/23 20:48 Calculated Osmolality 283 mOsm/kg (285-295) L 08/13/23 20:48 Calcium 9.7 mg/dL (8.5-10.5) 08/13/23 20:48 Total Bilirubin 0.4 mg/dL (0.15-1.2) 08/13/23 20:48 AST 57 U/L (0-40) H 08/13/23 20:48 ALT 67 U/L (0-41) H 08/13/23 20:48 Alkaline Phosphatase 81 U/L (40-130) 08/13/23 20:48 Total Protein 6.6 g/dL (6.6-8.7) 08/13/23 20:48 Albumin 4.1 g/dL (3.5-5.2) 08/13/23 20:48 Globulin 2.5 g/dL (1.3-4.6) 08/13/23 20:48 Lipase 49 U/L (13-60) 08/13/23 20:48 Urine Color Colorless (Yellow) 08/13/23 20:35 Urine Appearance Clear (CLEAR) 08/13/23 20:35 Urine pH 8 (5-7) H 08/13/23 20:35 Ur Specific [place] 1.010 (1.005-1.030) 08/13/23 20:35 Urine Protein Trace (Negative) 08/13/23 20:35 Urine Glucose (UA) Norm (Normal) 08/13/23 20:35 Urine Ketones Negative (Negative) 08/13/23 20:35 Urine Blood Neg (Negative) 08/13/23 20:35 Urine Nitrate Negative (Negative) 08/13/23 20:35 Urine Bilirubin Neg (Negative) 08/13/23 20:35 Prot Sulfosalicylic Acd Negative (Negative) 08/13/23 20:35 Urine Urobilinogen Norm mg/dL (Negative) 08/13/23 20:35 Ur Leukocyte Esterase 1+ (Negative) H 08/13/23 20:35 Urine RBC 0-4 /hpf (0-2) H 08/13/23 20:35 Urine WBC 0-4 /hpf (0-5) H 08/13/23 20:35 Ur Squamous Epith Cells 0-4 /hpf (0-5) H 08/13/23 20:35 Amorphous Sediment Not Reportable 08/13/23 20:35 Urine Bacteria Trace /hpf (NONE) 08/13/23 20:35 Hyaline Casts 0-4 /lpf H 08/13/23 20:35 Urine Mucus Trace /hpf 08/13/23 20:35 All radiology interpretation(s) finalized by discharge Discharge Plan Discharge Patient Disposition: Home Clinical Impression: Low back pain Qualifiers: Chronicity: unspecified Back pain laterality: bilateral Sciatica presence: w ithout sciatica Qualified Code(s): M54.50 - Low back pain, unspecified Condition: Stable Prescriptions: New methocarbamol 750 mg tablet 750 mg PO Q6H PRN (Reason: spasms) Qty: 20 0RF Naprosyn 500 mg tablet 500 mg PO BID PRN (Reason: pain) Qty: 20 0RF No Action azithromycin 250 mg tablet See Rx Instructions PO .COMPLEX Qty: 6 0RF Rx Instructions: For 250 mg dose pack: take 500 mg today (day 1), then 250 mg for 4 days (days 2-5) PO prednisone 20 mg tablet 20 mg PO DAILY Qty: 18 0RF Rx Instructions: Take 60mg (3 tabs) days 1, 2, 3 Take 40mg (2 tabs) days 4,5,6 take 20mg (1 tab) days 7,8,9 albuterol sulfate [ProAir HFA] 90 mcg/actuation HFA aerosol inhaler 2 puff INHALATION Q6H PRN (Reason: shortness of breath or wheezing) Qty: 8.5 0RF budesonide 180 mcg/actuation aerosol powdr breath activated 1 inh inhalation BID Qty: 1 0RF Rx Instructions: Generic form if available. albuterol sulfate 2.5 mg /3 mL (0.083 %) solution for nebulization 2.5 mg continuous nebulization Q4H PRN (Reason: Shortness Of Breath) ibuprofen 200 mg Tablet 200 - 400 mg PO Q6H PRN (Reason: Pain) Tylenol 1 - 2 tab PO Q6H PRN (Reason: Pain) albuterol sulfate 90 mcg/actuation HFA aerosol inhaler 2 inh inhalation Q4H PRN (Reason: shortness of breath or wheezing) Qty: 8.5 2RF Advair Diskus 250-50 mcg/dose blister with device 1 inh inhalation BID Qty: 60 2RF tamsulosin 0.4 mg capsule 0.4 mg PO DAILY Qty: 14 0RF Discharge Orders: Discharge ED (Routine); Ordered 08/13/23 Ordered By: Deanna Garcia Referrals: Juan Antonio Dunn DO [Primary Care Provider] - 4-7 days Discharge Diet: Advance as tolerated Discharge Activity: Resume usual activity Patient Instructions: Back Pain (ED) Coding 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
[2023-08-13 20:44] LABS: Add Urine Microscopic? YES; Bilirubin Urine Neg (Negative); Blood Urine Neg (Negative); Glucose Urine UA Norm (Normal); Ketones Urine Negative (Negative); Leukocyte Esterase Urine 1+ (Negative); Nitrate Urine Negative (Negative); Protein Urine Trace (Negative); Sulfosalicylic Acid Urine Negative (Negative); Urine Appearance Clear (CLEAR); Urine Color Colorless (Yellow); Urobilinogen Urine Norm (Negative); pH Urine 8 (5-7)
[2023-08-13] MEDS: sodium chloride 0.9% 1,000 ML 999 ML IV (20:51)
[2023-08-13 20:52] VITALS: RESP 18
[2023-08-13] MEDS: morphine 4 mg/mL SDV 1 mL IVP (20:52)
[2023-08-13] MEDS: ondansetron 2 mg/ML SDV 2 mL 4 MG IVP (20:52)
[2023-08-13 20:53] LABS: RBC Urine 0-4 /hpf (0-2); WBC Urine 0-4 /hpf (0-5)
[2023-08-13 20:54] LABS: Basophils % 0.2 %; Eosinophils # 0.1 10^3/uL (0.0-0.8); Eosinophils % 0.8 %; Lymphocytes # 1.4 10^3/uL (0.8-4.8); Lymphocytes % 9.4 %; Mean Corpuscular HGB Conc 33.3 g/dL (30-55); Mean Corpuscular Hemoglobin 31.3 pg (27-33); Mean Corpuscular Volume 93.8 fl (82-101); Monocytes # 0.9 10^3/uL (0.2-0.9); Monocytes % 5.7 %; Neutrophils # 12.54 10^3/uL (1.8-7.7); Neutrophils % 83.5 %; Nucleated Red Blood Cells % 0 %; Platelet Count 253 10^3/cmm (157-399); Red Blood Count 5.12 10^6/uL (3.85-5.65); Red Cell Distribution Width 11.9 % (12.1-15.1); White Blood Count 15.03 10^3/uL (3.29-11.43)
[2023-08-13 20:54] LABS: Bacteria Urine TRACE /hpf; Hyaline Casts Urine 0-4 /lpf; Mucus Urine TRACE /hpf; Squamous Epithelial Cell Urine 0-4 /hpf (0-5)
[2023-08-13 21:10] LABS: Alanine Aminotransferase 67 U/L (0-41); Albumin Level 4.1 g/dL (3.5-5.2); Alkaline Phosphatase 81 U/L (40-130); Aspartate Amino Transferase 57 U/L (0-40); Blood Urea Nitrogen 21 mg/dL (6-20); Calcium 9.7 mg/dL (8.5-10.5); Carbon Dioxide 23 mmol/L (22-29); Chloride 99 mmol/L (98-107); Globulin 2.5 g/dL (1.3-4.6); Glomerular Filtration Rate 61.7 mL/min (90-130); Glucose 103 mg/dL (65-115); Lipase 49 U/L (13-60); Osmolality Calculated 283 mOsm/kg (285-295); Sodium 135 mmol/L (136-145); Total Bilirubin 0.4 mg/dL (0.15-1.2); Total Protein 6.6 g/dL (6.6-8.7)
[2023-08-13 22:02] VITALS: RESP 21; O2SAT 98
[2023-08-13] MEDS: HYDROmorphone 1 mg/mL INJ 1 mL IVP (22:02)
[2023-08-13 22:48] VITALS: BP 150/98; PULSE 89; RESP 18; O2SAT 98
== END 2023-08-13 23:00 | disposition home or self-care (01) ==
PROVIDERS: Emergency Provider Emergency Medicine; PCP Electrodiagnostic Medicine
DX: M54.50 Low back pain, unspecified (principal); F17.210 Nicotine dependence, cigarettes, uncomplicated; F17.290 Nicotine dependence, other tobacco product, uncomplicated
CPT/HCPCS: 74176; 80053; 81001; 83690; 85025; 96374; 96375; 99285; J1170; J2270; J2405; J7030

== ENCOUNTER 2024-04-08 18:50 | Emergency (ER) | payer SELFPAY ==
[2024-04-08 19:02] VITALS: BP 138/80; PULSE 105; RESP 18; TEMP 36.9; O2SAT 94; BMI 31.9
[2024-04-08 19:05] VITALS: BP 116/94; PULSE 100; O2SAT 98
--- NOTE | 2024-04-08 19:16 | ED_ITS ---
HPI - Dental/Oral General: Chief complaint: Dental/Oral Stated complaint: tooth pulled abcsess Time Seen by Provider: 04/08/24 18:53 Source: patient Mode of arrival: ambulatory Limitations: no limitations History of Present Illness: 28-year-old male states he had a tooth p ulled a right upper molar 4 days ago states that the last 2 days he been having increasing pain is concerned he may have an infection has not been on antibiotics rates his pain a 5 out of 10 denies any trismus denies any other worsening improving factors Associated symptoms: Denies fever(s) Related Data Home Medications Medication Instructions Recorded Confirmed Tylenol 1 - 2 tab PO Q6H PRN Pain 08/01/20 08/11/23 albuterol sulfate 2.5 mg/3 mL 2.5 mg continuous nebulization Q4H 08/01/20 08/11/23 (0.083 %) solution for nebulization PRN Shortness Of Breath ibuprofen 200 mg tablet 200 - 400 mg PO Q6H PRN Pain 08/01/20 08/11/23 Previous Rx's Medication Instructions Recorded budesonide 180 mcg/actuation 1 inh inhalation BID #1 ea 11/26/20 breath activated powder inhaler albuterol sulfate 90 mcg/actuation 2 inh inhalation Q4H PRN shortness 10/31/21 aerosol inhaler of breath or wheezing #8.5 grams fluticasone 250 mcg-salmeterol 50 1 inh inhalation BID #60 ea 10/31/21 mcg/dose blistr powdr for inhalation (Advair Diskus) tamsulosin 0.4 mg capsule 0.4 mg PO DAILY #14 caps 02/12/22 albuterol sulfate 90 mcg/actuation 2 puff inhalation Q6H PRN 08/11/23 aerosol inhaler (ProAir HFA) shortness of breath or wheezing #8.5 grams azithromycin 250 mg tablet See Rx Instructions PO .COMPLEX #6 08/11/23 tabs prednisone 20 mg tablet 20 mg PO DAILY #18 tabs 08/11/23 methocarbamol 750 mg tablet 750 mg PO Q6H PRN spasms #20 tabs 08/13/23 naproxen 500 mg tablet (Naprosyn) 500 mg PO BID PRN pain #20 tabs 08/13/23 amoxicillin 500 mg-potassium 1 tab PO BID #14 tabs 04/08/24 clavulanate 125 mg tablet (Augmentin) naproxen 500 mg tablet (Naprosyn) 500 mg PO BID PRN pain #20 tabs 04/08/24 Allergies Allergy/AdvReac Type Severity Reaction Status Date / Time cephalexin Allergy ALGY-Hives Verified 04/08/24 19:05 Review of Systems Const: Denies: fever(s), chills, body aches or change in appetite ENMT: Reports: dental pain; Denies: throat pain Card: Denies: chest pain Resp: Denies: dyspnea GI: Denies: abdominal pain, nausea, vomiting or diarrhea Musc: Denies: neck pain or back pain Skin/Breast: Denies: rash Neuro: Denies: headache(s) PFSH ED PFSH: Medical History No significant past medical history Surgical History History of appendectomy History of tonsillectomy Social History Smoking and tobacco/nicotine status: current every day tobacco/nicotine user cigarettes Packs smoked per day: 0.5 and e-cigarettes E-Cigarette Details: e- cigarette and with nicotine E-cig/vape details: Daily use Quit status (tobacco/nicotine): has tried quititng Number of times tried to quit tobacco: 5 Second hand smoke exposure: Yes Alcohol intake: current Current gender identity: Male Physical Exam Const: COMMON NORMALS: no acute distress, patient oriented x3 and healthy appearing HENMT: COMMON NORMALS: normocephalic and atraumatic HEAD & SCALP: normocephalic and atraumatic OTHER: Recently pulled tooth right upper molar no abscess or trismus does have some slight inflammation poor dentition as well Eye: COMMON NORMALS: conjunctivae normal CONJUNCTIVA: Yes conjunctivae normal Neck/C-Spine: COMMON NORMALS: full ROM and supple Chest: COMMONS NORMALS: normal inspection of the chest Resp: COMMON NORMALS: normal respiratory effort and No use of accessory muscles Cardio: COMMON NORMALS: regular rate, regular rhythm and No murmurs present (Cardio) RATE: regular rate RHYTHM: regular rhythm Extremity: COMMON NORMALS: normal to inspection and full ROM Neuro: COMMON NORMALS: patient oriented x3, moves all extremities and no focal motor deficits Psych: COMMON NORMALS: mental status grossly normal, Normal thought process present and cooperative THOUGHT PROCESS: Normal thought process present Skin: COMMON NORMALS: no rashes or lesions noted and no wounds GENERAL SKIN EXAM: no rashes or lesions noted Course Vital Signs: Vital signs: Vital Signs Temperature 98.5 F 04/08/24 19:02 Pulse Rate 105 H 04/08/24 19:02 Respiratory Rate 18 04/08/24 19:02 Blood Pressure 138/80 04/08/24 19:02 Pulse Oximetry 94 04/08/24 19:02 Oxygen Delivery Me thod Room Air 04/08/24 19:02 MDM - Dental/Oral Medical Decision Making Patient presents here with dental pain he has no abscess or trismus we will start him on antibiotics he is follow-up with dentist return if worsening he understands agrees to plan No radiology studies performed this visit Discharge Plan Discharge Patient Disposition: Home Clinical Impression: Pain, dental Condition: Stable Prescriptions: New naproxen [Naprosyn] 500 mg tablet 500 mg PO BID PRN (Reason: pain) Qty: 20 0RF amoxicillin-pot clavulanate [Augmentin] 500-125 mg tablet 1 tab PO BID Qty: 14 0RF No Action azithromycin 250 mg tablet See Rx Instructions PO .COMPLEX Qty: 6 0RF Rx Instructions: For 250 mg dose pack: take 500 mg today (day 1), then 250 mg for 4 days (days 2-5) PO prednisone 20 mg tablet 20 mg PO DAILY Qty: 18 0RF Rx Instructions: Take 60mg (3 tabs) days 1, 2, 3 Take 40mg (2 tabs) days 4,5,6 take 20mg (1 tab) days 7,8,9 albuterol sulfate [ProAir HFA] 90 mcg/actuation HFA aerosol inhaler 2 puff INHALATION Q6H PRN (Reason: shortness of breath or wheezing) Qty: 8.5 0RF budesonide 180 mcg/actuation aerosol powdr breath activated 1 inh inhalation BID Qty: 1 0RF Rx Instructions: Generic form if available. albuterol sulfate 2.5 mg /3 mL (0.083 %) solution for nebulization 2.5 mg continuous nebulization Q4H PRN (Reason: Shortness Of Breath) ibuprofen 200 mg Tablet 200 - 400 mg PO Q6H PRN (Reason: Pain) Tylenol 1 - 2 tab PO Q6H PRN (Reason: Pain) albuterol sulfate 90 mcg/actuation HFA aerosol inhaler 2 inh inhalation Q4H PRN (Reason: shortness of breath or wheezing) Qty: 8.5 2RF Advair Diskus 250-50 mcg/dose blister with device 1 inh inhalation BID Qty: 60 2RF tamsulosin 0.4 mg capsule 0.4 mg PO DAILY Qty: 14 0RF methocarbamol 750 mg tablet 750 mg PO Q6H PRN (Reason: spasms) Qty: 20 0RF Naprosyn 500 mg tablet 500 mg PO BID PRN (Reason: pain) Qty: 20 0RF Discharge Orders: Discharge ED (Routine); Ordered 04/08/24 Ordered By: Deanna Garcia Referrals: Juan Antonio Dunn, [Primary Care Provider] - Discharge Diet: Advance as tolerated Discharge Activity: Resume usual activity Patient Instructions: Toothache (ED) Coding 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
[2024-04-08] MEDS: amoxicillin-clav 875-125 mg Tablet 1 TAB PO (19:35)
[2024-04-08] MEDS: HYDROcodone-acetaminophen 5-325 mg Tablet 1 TAB PO (19:36)
[2024-04-08 19:58] VITALS: BP 133/89; PULSE 96; O2SAT 100
== END 2024-04-08 20:00 | disposition home or self-care (01) ==
PROVIDERS: Emergency Provider Emergency Medicine; PCP Electrodiagnostic Medicine
DX: K08.89 Other specified disorders of teeth and supporting structures (principal); Z98.818 Other dental procedure status; F17.210 Nicotine dependence, cigarettes, uncomplicated; F17.290 Nicotine dependence, other tobacco product, uncomplicated
CPT/HCPCS: 99283

== ENCOUNTER 2024-07-06 12:05 | Emergency (ER) | payer SELFPAY ==
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
[2024-07-06 12:23] VITALS: BP 127/73; PULSE 119; RESP 16; TEMP 36.7; O2SAT 97; BMI 30.4
[2024-07-06] MEDS: ketorolac 10 mg Tablet PO (13:55)
--- NOTE | 2024-07-06 14:31 | W.ED.EXTPRO ---
HPI - Extremity Problem General: Chief complaint: Extremity Injury, Upper Stated complaint: left hand pain Time Seen by Provider: 07/06/24 13:20 History of Present Illness: Richar is a [id number] 28-year-old man that presents to the emergency department with complaints of pain to the right third finger. Patient reports he was trying to break up a dog fight and he dislocated his fingertip in the process. No bite wounds. Tenderness to palpation over the right middle finger but no open wounds. Related Data Home Medications Medication Instructions Recorded Confirmed Tylenol 1 - 2 tab PO Q6H PRN Pain 08/01/20 08/11/23 albuterol sulfate 2.5 mg/3 mL 2.5 mg continuous nebulization Q4H 08/01/20 08/11/23 (0.083 %) solution for nebulization PRN Shortness Of Breath ibuprofen 200 mg tablet 200 - 400 mg PO Q6H PRN Pain 08/01/20 08/11/23 Previous Rx's Medication Instructions Recorded budesonide 180 mcg/actuation 1 inh inhalation BID #1 ea 11/26/20 breath activated powder inhaler albuterol sulfate 90 mcg/actuation 2 inh inhalation Q4H PRN shortness 10/31/21 aerosol inhaler of breath or wheezing #8.5 grams fluticasone 250 mcg-salmeterol 50 1 inh inhalation BID #60 ea 10/31/21 mcg/dose blistr powdr for inhalation (Advair Diskus) tamsulosin 0.4 mg capsule 0.4 mg PO DAILY #14 caps 02/12/22 albuterol sulfate 90 mcg/actuation 2 puff inhalation Q6H PRN 08/11/23 aerosol inhaler (ProAir HFA) shortness of breath or wheezing #8.5 grams azithromycin 250 mg tablet See Rx Instructions PO .COMPLEX #6 08/11/23 tabs prednisone 20 mg tablet 20 mg PO DAILY #18 tabs 08/11/23 methocarbamol 750 mg tablet 750 mg PO Q6H PRN spasms #20 tabs 08/13/23 naproxen 500 mg tablet (Naprosyn) 500 mg PO BID PRN pain #20 tabs 08/13/23 amoxicillin 500 mg-potassium 1 tab PO BID #14 tabs 04/08/24 clavulanate 125 mg tablet (Augmentin) naproxen 500 mg tablet (Naprosyn) 500 mg PO BID PRN pain #20 tabs 04/08/24 ketorolac 10 mg tablet 10 mg PO TID 5 days #15 tabs 07/06/24 Allergies Allergy/AdvReac Type Severity Reaction Status Date / Time cephalexin Allergy ALGY-Hives Verified 04/08/24 19:05 Review of Systems General: Reports: 10 or more systems reviewed and unremarkable except in HPI and below PFSH ED PFSH: Medical History No significant past medical history Surgical History History of appendectomy History of tonsillectomy Social History Smoking and tobacco/nicotine status: current every day tobacco/nicotine user cigarettes Packs smoked per day: 0.5 and e-cigarettes E-Cigarette Details: e-cigarette and with nicotine E-cig/vape details: Daily use Quit status (tobacco/nicotine): has tried quititng Number of times tried to quit tobacco: 5 Second hand smoke exposure: Yes Alcohol intake: current Current gender identity: Male Physical Exam Const: COMMON NORMALS: no acute distress, patient oriented x3 and alert GENERAL APPEARANCE: cooperative ORIENTATION/CONSCIOUSNESS: Yes awake, Yes oriented to person, Yes oriented to place and Yes oriented to time Resp: COMMON NORMALS: normal respiratory effort, No retractions and No use of accessory muscles EFFORT & INSPECTION: Yes able to speak in complete sentences and Yes symmetric chest movement Cardio: COMMON NORMALS: regular rate and Peripheral pulses 2+ throughout RATE: regular rate PERIPHERAL PULSES: Peripheral pulses 2+ throughout Extremity: COMMON NORMALS: normal to inspection NARRATIVE EXTREMITY EXAM: Right upper extremity: Skin is clean dry and intact No deformity noted that swelling at the tip of the right middle finger or third digit. Sensation intact to light touch. Patient reports that during the injury he noted deformity and angulation. He straighten his finger by manipulation. No open wounds and cap refills less than 3 seconds GENERAL: Yes normal exam except as noted Neuro: COMMON NORMALS: patient oriented x3 SENSORIUM/ORIENTATION: Yes alert, Yes oriented to person, Yes oriented to place and Yes oriented to time CRANIAL NERVES: Yes CN normal except as noted Psych: COMMON NORMALS: mental status grossly normal, Normal thought process present, cooperative, activity/motor behavior normal, denies homicidal ideation and denies suicidal ideation THOUGHT PROCESS: Normal thought process present Skin: COMMON NORMALS: no rashes or lesions noted, no wounds and turgor normal GENERAL SKIN EXAM: no rashes or lesions noted and turgor normal Course Vital Signs: Vital signs: Vital Signs Temperature 98.1 F 07/06/24 12:23 Pulse Rate 119 H 07/06/24 12:23 Respiratory Rate 16 07/06/24 12:23 Blood Pressure 127/73 07/06/24 12:23 Pulse Oximetry 97 07/06/24 12:23 Oxygen Delivery Me thod Room Air 07/06/24 12:23 MDM - Extremity (Nontraumatic) Medical Decision Making Patient underwent an XR image of the right hand which reveals a fracture of the distal phalanx of the third finger that extends intra-articular. Patient was placed in a splint. Pain was treated with oral Toradol. We arranged for him to follow-up with Ortho hand at [facility]. Lab Data Radiology Impressions Hand X-Ray 07/06/24 12:08 IMPRESSION: Fracture of the 3rd distal phalanx. All radiology interpretation(s) finalized by discharge Discharge Plan Discharge Patient Disposition: Home Clinical Impression: Distal phalanx or phalanges, closed fracture Condition: Stable Prescriptions: New ketorolac 10 mg tablet 10 mg PO TID 5 Days Qty: 15 0RF Rx Instructions: Do not take with naproxen/Naprosyn, or other nonsteroidal anti-inflammatory drugs No Action azithromycin 250 mg tablet See Rx Instructions PO .COMPLEX Qty: 6 0RF Rx Instructions: For 250 mg dose pack: take 500 mg today (day 1), then 250 mg for 4 days (days 2-5) PO prednisone 20 mg tablet 20 mg PO DAILY Qty: 18 0RF Rx Instructions: Take 60mg (3 tabs) days 1, 2, 3 Take 40mg (2 tabs) days 4,5,6 take 20mg (1 tab) days 7,8,9 albuterol sulfate [ProAir HFA] 90 mcg/actuation HFA aerosol inhaler 2 puff INHALATION Q6H PRN (Reason: shortness of breath or wheezing) Qty: 8.5 0RF budesonide 180 mcg/actuation aerosol powdr breath activated 1 inh inhalation BID Qty: 1 0RF Rx Instructions: Generic form if available. albuterol sulfate 2.5 mg /3 mL (0.083 %) solution for nebulization 2.5 mg continuous nebulization Q4H PRN (Reason: Shortness Of Breath) ibuprofen 200 mg Tablet 200 - 400 mg PO Q6H PRN (Reason: Pain) Tylenol 1 - 2 tab PO Q6H PRN (Reason: Pain) albuterol sulfate 90 mcg/actuation HFA aerosol inhaler 2 inh inhalation Q4H PRN (Reason: shortness of breath or wheezing) Qty: 8.5 2RF Advair Diskus 250-50 mcg/dose blister with device 1 inh inhalation BID Qty: 60 2RF tamsulosin 0.4 mg capsule 0.4 mg PO DAILY Qty: 14 0RF methocarbamol 750 mg tablet 750 mg PO Q6H PRN (Reason: spasms) Qty: 20 0RF Naprosyn 500 mg tablet 500 mg PO BID PRN (Reason: pain) Qty: 20 0RF naproxen [Naprosyn] 500 mg tablet 500 mg PO BID PRN (Reason: pain) Qty: 20 0RF amoxicillin-pot clavulanate [Augmentin] 500-125 mg tablet 1 tab PO BID Qty: 14 0RF Discharge Orders: Discharge ED (Routine); Ordered 07/06/24 Or[facility] By: [facility] Referrals: Juan Antonio Dunn DO [Primary Care Provider] - Jh Cm MD [Referring] - (Distal phalanx fracture with intra-articular extension) Discharge Diet: Advance as tolerated Discharge Activity: Resume usual activity Patient Instructions: Fractures - Phalanx (Finger), Finger Fracture (ED), Pain Management Activity Restrictions/Additional Instructions: Please call Dr. Cm Monday to get an appointment. Leave your splint intact. Avoid lifting with your injured hand. You have a distal phalanx fracture with intra-articular extension. Make sure you call the hand surgeon for follow-up. Please return to the emergency department for new concerning or worsening symptoms Coding Level of Care Code ED Transportation Project Manager for Pepper Umanzor
[2024-07-06 14:36] VITALS: PULSE 102; RESP 14; O2SAT 96
[2024-07-06] MEDS: HYDROcodone-acetaminophen 5-325 mg Tablet 1 TAB PO (15:07)
--- NOTE | 2024-07-06 15:16 | PC.NURSE ---
No large finger splints available for splinting, finger splint made from ortho glass and placed on finger to immobilize third finger on right hand.
== END 2024-07-06 15:18 | disposition home or self-care (01) ==
PROVIDERS: Emergency Provider Nurse Practitioner; PCP Electrodiagnostic Medicine
DX: S62.632A Displaced fracture of distal phalanx of right middle finger, initial encounter for closed fracture (principal); F17.290 Nicotine dependence, other tobacco product, uncomplicated; X58.XXXA Exposure to other specified factors, initial encounter
CPT/HCPCS: 73130; 99283; A4590

== ENCOUNTER 2024-12-04 00:25 | Emergency (ER) | payer BC, MEDICAID, SELFPAY ==
[2024-12-04 00:34] VITALS: BP 143/102; PULSE 110; RESP 17; TEMP 36.8; O2SAT 100; BMI 28.8
[2024-12-04 01:00] VITALS: RESP 18
[2024-12-04] MEDS: amoxicillin-clav 875-125 mg Tablet 1 TAB PO (01:00)
[2024-12-04] MEDS: oxyCODONE-APAP 5-325 mg Tablet 1 TAB PO (01:00)
[2024-12-04 01:24] VITALS: BP 139/95; PULSE 110; RESP 18; O2SAT 98
--- NOTE | 2024-12-04 02:55 | W.ED.DENTAL ---
HPI - Dental/Oral General: Chief complaint: Dental/Oral Stated complaint: Tooth Ache\Mouth Swollen Time Seen by Provider: 12/04/24 00:36 History of Present Illness: Patient is a generally well-appearing 28-year-old male seen for tooth pain. He states that he has had a tooth on the left lower molars that has caused him pain over the last 3 to 4 weeks and has gotten acutely worse over the last 2 days. While working earlier in the day, he states that he felt somewhat lightheaded and is concerned that the infection may be spreading. He has not taken any antibiotics for it. He has not seen a dentist. He has had multiple teeth in the past that felt this way and eventually had to be pulled. He has no other acute complaints. Related Data Home Medications ?Medication ?Instructions ?Recorded ?Confirmed Tylenol 1 - 2 tab PO Q6H PRN Pain 08/01/20 08/11/23 albuterol sulfate 2.5 mg/3 mL 2.5 mg continuous nebulization Q4H 08/01/20 08/11/23 (0.083 %) solution for nebulization PRN Shortness Of Breath ibuprofen 200 mg tablet 200 - 400 mg PO Q6H PRN Pain 08/01/20 08/11/23 Previous Rx's ?Medication ?Instructions ?Recorded budesonide 180 mcg/actuation 1 inh inhalation BID #1 ea 11/26/20 breath activated powder inhaler albuterol sulfate 90 mcg/actuation 2 inh inhalation Q4H PRN shortness 10/31/21 aerosol inhaler of breath or wheezing #8.5 grams fluticasone 250 mcg-salmeterol 50 1 inh inhalation BID #60 ea 10/31/21 mcg/dose blistr powdr for inhalation (Advair Diskus) tamsulosin 0.4 mg capsule 0.4 mg PO DAILY #14 caps 02/12/22 albuterol sulfate 90 mcg/actuation 2 puff inhalation Q6H PRN 08/11/23 aerosol inhaler (ProAir HFA) shortness of breath or wheezing #8.5 grams azithromycin 250 mg tablet See Rx Instructions PO .COMPLEX #6 08/11/23 tabs prednisone 20 mg tablet 20 mg PO DAILY #18 tabs 08/11/23 methocarbamol 750 mg tablet 750 mg PO Q6H PRN spasms #20 tabs 08/13/23 naproxen 500 mg tablet (Naprosyn) 500 mg PO BID PRN pain #20 tabs 08/13/23 amoxicillin 500 mg-potassium 1 tab PO BID #14 tabs 04/08/24 clavulanate 125 mg tablet (Augmentin) naproxen 500 mg tablet (Naprosyn) 500 mg PO BID PRN pain #20 tabs 04/08/24 amoxicillin 875 mg-potassium 1 tab PO BID 14 days #28 tabs 12/04/24 clavulanate 125 mg tablet oxycodone-acetaminophen 5 mg-325 1 tab PO Q12H PRN pain #7 tabs 12/04/24 mg tablet (Percocet) Allergies Allergy/AdvReac Type Severity Reaction Status Date / Time cephalexin Allergy ALGY-Hives Verified 04/08/24 19:05 [facility] ED PFSH: Medical History No significant past medical history Surgical History History of appendectomy History of tonsillectomy Social History Smoking and tobacco/nicotine status: current every day tobacco/nicotine user cigarettes Packs smoked per day: 0.5 and e-cigarettes E-Cigarette Details: e-cigarette and with nicotine E-cig/vape details: Daily use Quit status (tobacco/nicotine): has tried quititng Number of times tried to quit tobacco: 5 Second hand smoke exposure: Yes Alcohol intake: current Current gender identity: Male Physical Exam Const: COMMON NORMALS: no acute distress, patient oriented x3 and alert HENMT: COMMON NORMALS: normocephalic and atraumatic HEAD & SCALP: normocephalic and atraumatic OTHER: Dental caries throughout the mouth. Multiple teeth with very stages of decay. Back most left lower molar has what appears to be a large cavity. There is no abscess adjacent to the tooth amenable to incision and drainage. There is some swelling and tenderness adjacent to this left lower molar. No subungual swelling or submental firmness to imply Manpreet's angina. Eye: COMMON NORMALS: Equal, round and reactive pupils present, EOMs intact bilaterally and no scleral icterus PUPIL: Yes Equal, round and reactive pupils present Resp: COMMON NORMALS: normal respiratory effort and No retractions Cardio: COMMON NORMALS: regular rate, regular rhythm and No murmurs present (Cardio) RATE: regular rate RHYTHM: regular rhythm GI: COMMON NORMALS: Normal to inspection, nondistended, normoactive bowel sounds present, Soft to palpation and non-tender PALPATION: Yes Soft to palpation Neuro: COMMON NORMALS: patient oriented x3 SENSORIUM/ORIENTATION: Yes alert Skin: COMMON NORMALS: no rashes or lesions noted GENERAL SKIN EXAM: no rashes or lesions noted Course Vital Signs: Vital signs: Vital Signs Temperature 98.3 F 12/04/24 00:34 Pulse Rate 110 H 12/04/24 01:24 Respiratory Rate 18 12/04/24 01:24 Blood Pressure 139/95 12/04/24 01:24 Pulse Oximetry 98 12/04/24 01:24 Oxygen Delivery Me thod Room Air 12/04/24 00:34 MDM - Dental/Oral Medical Decision Making In summary, patient has what appears to be an infected left lower molar tooth. I do not appreciate abscess or Manpreet's angina or any other emergent process warranting imaging. He will be given a course of Augmentin and agrees to call his dentist to be seen as soon as feasible for definitive management. He shows good understanding and agrees to the plan No radiology studies performed this visit Discharge Plan Discharge Patient Disposition: Home Clinical Impression: Infected tooth Condition: Stable Prescriptions: New amoxicillin-pot clavulanate 875-125 mg tablet 1 tab PO BID 14 Days Qty: 28 0RF oxycodone-acetaminophen [Percocet] 5-325 mg tablet 1 tab PO Q12H PRN (Reason: pain) Qty: 7 0RF No Action azithromycin 250 mg tablet See Rx Instructions PO .COMPLEX Qty: 6 0RF Rx Instructions: For 250 mg dose pack: take 500 mg today (day 1), then 250 mg for 4 days (days 2-5) PO prednisone 20 mg tablet 20 mg PO DAILY Qty: 18 0RF Rx Instructions: Take 60mg (3 tabs) days 1, 2, 3 Take 40mg (2 tabs) days 4,5,6 take 20mg (1 tab) days 7,8,9 albuterol sulfate [ProAir HFA] 90 mcg/actuation HFA aerosol inhaler 2 puff INHALATION Q6H PRN (Reason: shortness of breath or wheezing) Qty: 8.5 0RF budesonide 180 mcg/actuation aerosol powdr breath activated 1 inh inhalation BID Qty: 1 0RF Rx Instructions: Generic form if available. albuterol sulfate 2.5 mg /3 mL (0.083 %) solution for nebulization 2.5 mg continuous nebulization Q4H PRN (Reason: Shortness Of Breath) ibuprofen 200 mg Tablet 200 - 400 mg PO Q6H PRN (Reason: Pain) Tylenol 1 - 2 tab PO Q6H PRN (Reason: Pain) albuterol sulfate 90 mcg/actuation HFA aerosol inhaler 2 inh inhalation Q4H PRN (Reason: shortness of breath or wheezing) Qty: 8.5 2RF Advair Diskus 250-50 mcg/dose blister with device 1 inh inhalation BID Qty: 60 2RF tamsulosin 0.4 mg capsule 0.4 mg PO DAILY Qty: 14 0RF methocarbamol 750 mg tablet 750 mg PO Q6H PRN (Reason: spasms) Qty: 20 0RF Naprosyn 500 mg tablet 500 mg PO BID PRN (Reason: pain) Qty: 20 0RF naproxen [Naprosyn] 500 mg tablet 500 mg PO BID PRN (Reason: pain) Qty: 20 0RF amoxicillin-pot clavulanate [Augmentin] 500-125 mg tablet 1 tab PO BID Qty: 14 0RF Discharge Orders: Discharge ED (Routine); Ordered 12/04/24 Ordered By: Javier Mendoza Referrals: Juan Antonio Dunn DO [Primary Care Provider, [facility]] Discharge Diet: Advance as tolerated Discharge Activity: Increase activity as tolerated Patient Instructions: Dental Abscess (ED) Activity Restrictions/Additional Instructions: Please see a dentist as soon as possible for definitive care as you might need a tooth pulled or a root canal. Print Language: Faroese Coding Level of Care Code ED Mapping Technician for Pepper Umanzor
== END 2024-12-04 01:32 | disposition home or self-care (01) ==
PROVIDERS: Emergency Provider Student in an Organized Health Care Education/Training Program; PCP Electrodiagnostic Medicine
DX: K04.7 Periapical abscess without sinus (principal); F17.210 Nicotine dependence, cigarettes, uncomplicated
CPT/HCPCS: 99283; J9999

== ENCOUNTER 2025-05-25 12:24 | Emergency (ER) | payer BC, MEDICAID, SELFPAY ==
--- OUTSIDE RECORDS SUMMARY | 2015-07-23 03:40 | XMS_ITS | Continuity of Care Document ---
Author Organization [facility] [place] Address [address] [place] [phone] Phone Care Team Providers Care Commercial Carpenter Name Role Phone Unavailable Unavailable Unavailable Advance Directives Directive Yes / No Effective Date File Name No Information Encounters Encounter Description Practice Location Reason(s) For Visit Diagnoses Date Provider Providers Copied on Encounter [facility] [place] [address], [address], tel:[phone] [place] OFFICE No Information 6 No Information Referring Provider: KORIN BRINK, [address] [place], [address]. tel:[phone] Family History Family Member Type Diagnosis Age At Onset Father Problem (finding) Hypertension Father Problem (finding) Sudden Problem (finding) No family history of Ar rhythmia Problem (finding) No family hist ory of Cardiomyopathy - dilated Father Problem (finding) Cardiomyopathy - hypert rophic Problem (finding) No family hist ory of Congenital Heart Disease Problem (finding) No family history of Pr emature CAD Problem (finding) No family history of Di abetes [place] Payers Payer name Insurance type Covered libertarian ID Authoriza ticharlee(s) [employer] [id number] Social History Type Description Quantity Date Captured Comments Alcohol Use Details No Caffeine Use Details Unknown Tobacco Use Status Smoking Status Current some day smoker 016 Sex Male Vital Signs Date / Time: Height Weight BMI Pulse Rate Blood Pressure Temperature Respiratory Rate Body Surface Area Head Circumference BMI percentile Pulse Ox Inhaled Ox 12:19 PM 66.50 in 92.261 kg (203.40 lbs) 32.4 0 kg/m eter (2) 54 /min 16 /min 2.08 meter(2) 98 Chief Complaint And Reason For Visit No Information History Of Present Illness Encounter Date Complaint History Of Prese nt Illness No Information Instructions Date Instruction Additional Infor mation No Information Assessments Type Assessment Date No Information
--- OUTSIDE RECORDS SUMMARY | 2025-05-25 12:28 | XMS_ITS | Clinical Summary ---
Author Organization [employer] Address [address] Bertrandn: [place] [address] Care Team Providers Care Spanish Linguist Name Role Phone Mel Nagel MD, Osvaldo Craig Primary Care Provider Allergies Active Allergy Reactions Criticality Noted Date Comments Cephalexin Hives High 07/25/2024 Medications diphenhydrAMINE (BENADRYL) 25 mg capsule Take 25 mg by mouth every 6 hours as needed for Allergies. 5 Active mometasone (NASONEX) 50 mcg/actuation [place], Non-AerosolIndic ations:Allergic rhinitis, unspecified allergic rhinitis type Administer 1 [place] in each nostril 2 times daily. 17 Gram 3 5 Active albuterol sulfate 90 mcg/Actuation inhalerIndicatio ns:Moderate persistent asthma without complication Take 2 Puffs by inhalation every 4 hours as needed (cough, wheeze, or difficulty breathing). 8.5 Gram 6 5 Active albuterol (PROVENTIL,BRUNO BRENDA) 2.5 mg /3 mL (0.083 %) Solution for NebulizationIndi cations:Moderate persistent asthma without complication Take 3 mL (2.5 mg) by inhalation every 4 hours as needed for Shortness of Breath, Wheezing or Other (See Comment) (cough). 90 mL 6 5 Active QUEtiapine (SEROquel) 100 mg tablet Take 100 mg by mouth 2 times daily. insomnia Active gabapentin (NEURONTIN) 300 mg capsule Take 300 mg by mouth 1 time daily as needed for Pain (back/nerve pain). Active benzocaine (ORAJEL) 10 % Gel by Mouth/Throat route 4 times daily as needed for Pain Assist (Tooth pain). 7.1 Gram Active clonazePAM (KlonoPIN) 1 mg tabletIndication s:ANA (generalized anxiety disorder) Take 1 Tablet (1 mg) by mouth 2 times daily. Generalized anxiety disorder 30 Tablet Active Active Problems Problem Noted Date Diagnosed Date Alcohol dependence with uncomplicated withdrawal 03/29/2025 Scoliosis of lumbar spine 03/26/2025 Major depressive disorder, r ecurrent severe without psychotic features 03/08/2025 Amphetamine abuse 03/08/2025 Tobacco abuse 03/08/2025 Obesity (BMI 30.0-34.9) 03/08/2025 Alcohol withdrawal syndrome with complication Chronic low back pain 08/16/2023 Allergic rhinitis 05/18/2015 Nicotine addiction 08/07/2014 Asthma 04/24/2014 Resolved Problems Problem Noted Date Diagnosed Date Resolved Date Alcohol dependence with withdrawal 03/08/2025 03/29/2025 Switched to snuff from cigarettes 05/07/2014 08/07/2014 Cigarette nicotine dependence, uncomplicated 4 05/07/2014 Encounters Date Type Department Care Team Description 05/13/2025 External Device Data [facility] Provider, Abstract 04/30/2025 External Device Data [facility] Provider, Abstract 04/29/2025 External Device Data [facility] Provider, Abstract 04/16/2025 External Device Data [facility] Provider, Abstract 04/15/2025 External Device Data [facility] Provider, Abstract 04/01/2025 External Device Data [facility] Provider, Abstract 03/26/2025 4:10 PM CDT - 03/29/2025 3:05 PM CDT Hospital Encounter [facility] 3rd Floor Transitional Care Unit [address] [place] [phone] Mary Beth Bray MD Hoose, Dalton Vance, MD Alcohol dependence with withdrawal ([facility]) Discharge Disposition: Home or Self Care 03/18/2025 4:40 PM CDT - 03/18/2025 11:59 PM CDT Hospital Encounter [facility] Emergency Medical Services [address] [phone] Ambulance, [facility] Discharge Disposition: [facility] 03/18/2025 8:39 AM CDT - 03/18/2025 11:[address] [facility] Emergency Department [address] [place] [address] Claire Thayer MD Alcohol abuse (Primary Dx) Discharge Disposition: Home or Self Care 03/18/2025 External Device Data [facility] Provider, Abstract 03/18/2025 External Device Data [facility] Provider, Abstract 03/16/2025 12:18 PM CDT - 03/16/2025 3:[address] [facility] Emergency Department [address] [place] [phone] Muscle spasm (Primary Dx) Discharge Disposition: Home or Self Care 03/16/2025 Travel 03/12/2025 12:27 AM CDT - 03/12/2025 1:[address] [facility] Emergency Department [address] [place] [phone] Ruel Schwartz MD Encounter for medication refill (Primary Dx); Alcohol withdrawal syndrome with complication (CMS/HCC) Discharge Disposition: Home or Self Care 03/12/2025 External Device Data [facility] Provider, Abstract 03/11/2025 External Device Data [facility] Provider, Abstract 03/11/2025 External Device Data [facility] Provider, Abstract 03/07/2025 8:07 PM CDT - 03/11/2025 6:54 PM CDT Hospital Encounter [facility] 4A Cardiac [address] [place] [address] Vladimir Robledo DO Abma, Allison Meghan, Maco Puentes MD Shah, Foram Ashwinkumar, MD Chinna, Jagdeep S, MD Alcohol dependence with withdrawal (CMS/HCC) Discharge Disposition: Home or Self Care 03/07/2025 12:30 AM CDT - 03/07/2025 11:59 PM CDT Hospital Encounter [facility] Emergency Medical Services [place] [address] [place] [address] Ambulance, [facility] Discharge Disposition: [facility] 03/07/2025 Travel 02/25/2025 External Device Data [facility] Provider, Abstract 02/25/2025 External Device Data [facility] Provider, Abstract from Last 3 Months Immunizations Immunization Administration Dates Next Due (M-M-R II/PRIORIX)(12 MO UP) MEASLES, MUMPS AND RUBELLA VIRUS VACCINE, 0.5 ML IM/SUBCUT 11/22/2002,03/24/1999 (VARIVAX)(12 MOS UP)VARICELL A VIRUS VACCINE (PF) 0.5 ML, SUB CUT 11/16/2006,01/03/2001 Dt Dtp Dtap Vaccine 11/22/2002, 9,07/04/1998,1997,02/16/1998 HIB, Unspecified Formulation 03/24/1999, 07/04/1998,05/04/1998,1997 Hepatitis A Vaccine 05/15/2003,11/22/2002 Hepatitis B Vaccine 07/04/1998,02/02/1998,1997 IPV/OPV 11/22/2002, 9,05/04/1998,1997 Pneumococcal 7-valent conjug ate vaccine IM 01/03/2001 Family History Medical History Relation Name Comments Allergy-severe Brother Terrance lives in other [facility] Asthma Brother Terrance lives in other [facility] GERD Brother Terrance lives in other [facility] GERD Father Nathan Allergic Rhinitis Neg Hx Cystic Fibrosis Neg Hx [place]cz[place] Neg Hx Immunodeficiency Neg Hx Tuberculosis Neg Hx Relation Name Status Comments Brother Terrance lives in other [facility] Alive Father Nathan Mother Ngozi in [place] Alive Paternal Grandfather Benedicto [place] Alive Paternal Grandmother Yumiko [place] Alive Sister Deepika live in [place] Alive Social History Tobacco Use Types Packs/Day Years Used Date Smoking Tobacco: Light Smoker Smokeless Tobacco: Never Alcohol Use Standard Drinks/Week Comments Yes 0 (1 standard drink = 0.6 oz pur e alcohol) Food Insecurity Answer Date Recorded Do you find you are eating l ess than you should because you can t pay for food? Yes 03/26/2025 Transportation Needs Answer Date Record ed Have you gone without health care because you didn t have a way to get there? Or worry about transportation for future doctor visits, seed cone picker medication, etc.? No 2024 Housing Stability Answer Date Recorded Do you worry you won t have a steady place to sleep or struggle to pay rent or mortgage? Yes 03/26/2025 Utility Needs Answer Date Recorded Do you have difficulty payin g for utility costs (electric, water or gas bills)? Yes 03/26/2025 Medication Needs Answer Date Recorded Have you skipped taking medi cation due to cost or worry you can t afford new medications? Yes 03/26/2025 Feeling Safe Answer Date Recorded Are you in a relationship wi th someone who hurts you emotionally and/or physically? 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 Gender Identity Not on file Sexual Orientation Not on file Last Filed Vital Signs Vital Sign Reading Time Taken Comments Blood Pressure 125/70 03/29/2025 11:50 AM CDT Pulse 72 03/29/2025 11:50 AM CDT Temperature 36.8 C (98.3 F) 03/29/2025 11:50 AM CDT Respiratory Rate 14 03/29/2025 11:5 0 AM CDT Oxygen Saturation 100% 03/29/2025 11: 50 AM CDT Inhaled Oxygen Concentration - - Weight 96.9 kg (213 lb 11.2 oz) 03/29/2025 5:00 AM CDT Height 172.7 cm (5' 8 ) 03/26/2025 5:33 PM CDT Body Mass Index 32.49 03/26/2025 5:33 PM CDT Plan of Treatment Health Maintenance Due Date Last Done Comments DTAP/TDAP/TD VACCINES (7 - T d or Tdap) 02/11/2020 02/10/2010, 11/22/2002, 11/22/2002, Additional history exists INFLUENZA VACCINE (#1) 2025 04/20/2022 COVID-19 Vaccine (2024-2 6 season) 2025 10/22/2020, 07/24/2020 HEPATITIS B VACCINES Completed 07/04/1998, 07/04/1998, 02/02/1998, Additional history exists HPV VACCINES Completed 08/14/2014, 03/27, 02/03/2014 Procedures Procedure Name Priority Date/Time Associated Diagnosis Comments TELEMETRY REPORT 04/02/2025 11:1 1 AM CDT COMPREHENSIVE METABOLIC PANEL Routine 03/29/2025 4:04 AM CDT CBC WITH DIFFERENTIAL Routine 03/29/2025 4:04 AM CDT COMPREHENSIVE METABOLIC PANEL Routine 03/28/2025 5:13 AM CDT CBC WITH DIFFERENTIAL Routine 03/28/2025 5:13 AM CDT COMPREHENSIVE METABOLIC PANEL Routine 03/27/2025 5:26 AM CDT CBC WITH DIFFERENTIAL Routine 03/27/2025 5:26 AM CDT EXTRA TUBE (URINE GAONA) Routine 03/26/2025 9:25 PM CDT URINALYSIS W/REFLEX MICROSCOPIC Routine 03/26/2025 9:25 PM CDT DRUG SCREEN, URINE Routine 03/26/2025 9: 25 PM CDT LIPASE Routine 03/26/2025 5:17 PM CDT ACUTE HEPATITIS PANEL Stat 03/26/2025 5:17 PM CDT PHOSPHORUS Routine 03/26/2025 5:17 PM CDT MAGNESIUM LEVEL Routine 03/26/2025 5:17 PM CDT LACTIC ACID Stat 03/26/2025 5:17 PM CDT ETHANOL LEVEL Routine 03/26/2025 5:17 PM CDT COMPREHENSIVE METABOLIC PANEL Routine 03/26/2025 5:17 PM CDT CBC WITH DIFFERENTIAL Routine 03/26/2025 5:17 PM CDT ETHANOL LEVEL Stat 03/18/2025 9:40 AM CDT COMPREHENSIVE METABOLIC PANEL Stat 03/18/2025 9:40 AM CDT CBC WITH DIFFERENTIAL Stat 03/18/2025 9:40 AM CDT EXTRA TUBE (URINE GAONA) Stat 03/16/2025 2:13 PM CDT URINALYSIS W/REFLEX MICROSCOPIC Stat 03/16/2025 2:[address] URINARY CALCULI WO CONTRAST Stat 03/16/2025 1:45 PM CDT COMPREHENSIVE METABOLIC PANEL Stat 03/16/2025 12:10 PM CDT CBC WITH DIFFERENTIAL Stat 03/16/2025 12:10 PM CDT TELEMETRY REPORT 03/12/2025 2:21 AM CDT COMPREHENSIVE METABOLIC PANEL Routine 03/11/2025 4:58 AM CDT CBC WITH DIFFERENTIAL Routine 03/11/2025 4:00 AM CDT COMPREHENSIVE METABOLIC PANEL Routine 03/10/2025 4:53 AM CDT CBC WITH DIFFERENTIAL Routine 03/10/2025 4:53 AM CDT COMPREHENSIVE METABOLIC PANEL Routine 03/09/2025 3:56 AM CDT CBC WITH DIFFERENTIAL Routine 03/09/2025 3:56 AM CDT PHOSPHORUS Stat 03/08/2025 10:06 PM CDT MAGNESIUM LEVEL Stat 03/08/2025 10:06 PM CDT TROPONIN 6 HR, 5TH GEN Timed Study 03/08/2025 10:06 PM CDT TROPONIN 2 HR, 5TH GEN Timed Study 03/07/2025 11:30 PM CDT TROPONIN BASELINE, 5TH GEN Stat 03/07/2025 10:19 PM CDT LIPASE Stat 03/07/2025 10:19 PM CDT ETHANOL LEVEL Stat 03/07/2025 10:19 PM CDT ACETAMINOPHEN LEVEL Stat 03/07/2025 1 0:19 PM CDT SALICYLATE LEVEL Stat 03/07/2025 10:1 9 PM CDT DRUG SCREEN, URINE Stat 03/07/2025 10 :15 PM CDT EKG 12-LEAD Stat 03/07/2025 9:15 PM CDT XR CHEST PA OR AP 1 VW Stat 03/07/2025 9:08 PM CDT URINALYSIS W/REFLEX MICROSCOPIC Stat 03/07/2025 7:27 PM CDT MAGNESIUM LEVEL Stat 03/07/2025 1:46 PM CDT COMPREHENSIVE METABOLIC PANEL Stat 03/07/2025 1:46 PM CDT CBC WITH DIFFERENTIAL Stat 03/07/2025 1:46 PM CDT from Last 3 Months Results * TELEMETRY REPORT (04/02/2025 11:11 AM CDT) Only the most recent of2 resultswithin the time period is included. us Provider Scanning ECG ORDERABLES Final Result * (ABNORMAL) CBC WITH DIFFERENTIAL (03/29/2025 4:04 AM CDT) Only the most recent of10 resultswithin the time period is included. WBC 7.2 4.0 - 11.0 K/uL 03/29/2025 4:37 AM CDT [facility] [place] RBC 4.43(L) 4.70 - 6.00 M/uL 03/29/2025 4:37 AM CDT [facility] [place] HEMOGLOBIN 14.3 13.5 - 18.0 g/dL 03/29/2025 4:37 AM CDT [facility] [place] HEMATOCRIT 41.9(L) 42.0 - 52.0 % 03/29/2025 4:37 AM CDT [facility] [place] MCV 94.6 78.0 - 100.0 fL 03/29/2025 4:37 AM CDT [facility] [place] MCH 32.3 27.0 - 34.0 pg 03/29/2025 4:37 AM CDT [facility] [place] MCHC 34.1 31.0 - 37.0 g/dL 03/29/2025 4:37 AM CDT [facility] [place] RDW 11.3(L) 12.0 - 15.0 % 03/29/2025 4:37 AM CDT [facility] [place] RDW-STDEV 38.7 37.1 - 48.7 fL 03/29/2025 4:37 AM CDT [facility] [place] PLATELETS 284 150 - 450 K/uL 03/29/2025 4:37 AM CDT [facility] [place] MPV 10.4 9.3 - 12.4 fL 03/29/2025 4:37 AM CDT [facility] [place] NEUTROPHILS 46 31 - 76 % 03/29/2025 4:37 AM CDT [facility] [place] LYMPHOCYTES 39 24 - 44 % 03/29/2025 4:37 AM CDT [facility] [place] MONOCYTES 7 2 - 11 % 03/29/2025 4:37 AM CDT [facility] [place] EOSINOPHILS 8(H) 0 - 6 % 03/29/2025 4:[address] [facility] [place] BASOPHILS 0 0 - 2 % 03/29/2025 4:37 AM CDT [facility] [place] IMMATURE GRANULOCYTES 0 0 - 2 % 03/29/2025 4:[address] [facility] [place] NEUTROPHIL ABSOLUTE 3.27 1.80 - 7.70 K/uL 03/29/2025 4:[address] [facility] [place] LYMPHOCYTE ABSOLUTE 2.80 1.00 - 4.80 K/uL 03/29/2025 4:[address] [facility] [place] MONOCYTE ABSOLUTE 0.50 0.10 - 1.30 K/uL 03/29/2025 4:[address] [facility] [place] EOSINOPHIL ABSOLUTE 0.55 0.00 - 0.70 K/uL 03/29/2025 4:[address] [facility] [place] BASOPHILS ABSOLUTE 0.02 0.00 - 0.20 K/uL 03/29/2025 4:[address] [facility] [place] IMMATURE GRANULOCYTES ABSOLUTE 0.02 0.00 - 0.10 K/uL 03/29/2025 4:[address] [facility] [place] Blood Venipuncture / Unknown 03/29/2025 4:04 AM CDT 03/29/2025 4:31 AM CDT Mary Beth Bray MD HEMATOLOGY ORDERABLES Final Result [facility] [place] CLIA # [id number] [address] [facility] [place] [address] * (ABNORMAL) COMPREHENSIVE METABOLIC PANEL (03/29/2025 4:04 AM CDT) Only the most recent of10 resultswithin the time period is included. SODIUM 139 136 - 145 mmol/L 03/29/2025 4:[address] [facility] [place] POTASSIUM 3.8 3.5 - 5.1 mmol/L 03/29/2025 4:56 AM [facility] [place] CHLORIDE 107 98 - 107 mmol/L 03/29/2025 4:56 AM [facility] [place] CO2 23 22 - 29 mmol/L 03/29/2025 4:56 AM [facility] [place] CALCIUM 8.8 8.6 - 10.0 mg/dL 03/29/2025 4:56 AM [facility] [place] BUN 15 6 - 20 mg/dL 03/29/2025 4:56 AM [facility] [place] CREATININE 0.97 0.67 - 1.17 mg/dL 03/29/2025 4:56 AM [facility] [place] GLUCOSE 95 74 - 99 mg/dL 03/29/2025 4:56 AM [facility] [place] TOTAL PROTEIN 5.7(L) 6.4 - 8.3 g/dL 03/29/2025 4:56 AM [facility] [place] ALBUMIN 3.8 3.5 - 5.2 g/dL 03/29/2025 4:56 AM [facility] [place] BILIRUBIN TOTAL 0.3 0.0 - 1.2 mg/dL 03/29/2025 4:56 AM [facility] [place] ALKALINE PHOSPHATASE 51 40 - 129 U/L 03/29/2025 4:56 AM [facility] [place] AST 26 0 - 50 U/L 03/29/2025 4:56 AM [facility] [place] ALT 40 0 - 50 U/L 03/29/2025 4:56 AM [facility] [place] GFR >60 >=60 mL/min/1.7 3 sq meter 03/29/2025 4:56 AM [facility] [place] Comment:eGFR calculated with 2020 CKD-EPI equation. Vegetarian diet, extremely high or low muscle mass, and may affect results. Cystatin C with Glomerular Filtration Rate is a suitable alternative for these patients. ANION GAP 9 4 - 13 mmol/L 03/29/2025 4:[address] [facility] [place] Blood Venipuncture / Unknown 03/29/2025 4:04 AM CDT 03/29/2025 4:31 AM CDT Mary Beth Bray MD CHEMISTRY ORDERABLES Final Result Performing Organization Address City/[facility]/ZIP Co de Phone Number [facility] [place] # [id number] [address] [facility] [place] [address] * EXTRA TUBE (URINE GAONA) (03/26/2025 9:25 PM CDT) Only the most recent of2 resultswithin the time period is included. Urine URINE SPECIMEN OBTAINED BY CLEAN CATCH PROCEDURE / Unknown Collection / Unknown 03/26/2025 9:25 PM CDT 03/26/2025 9:31 PM CDT Mary Beth Bray MD URINE ORDERABLES April l Result [facility] [place] # [id number] [address] [facility] [place] [address] * (ABNORMAL) DRUG SCREEN, URINE (03/26/2025 9:25 PM CDT) Only the most recent of2 resultswithin the time period is included. CANNABINOIDS QUAL, URINE Negative Negative 03/26/2025 9:48 PM CDT [facility] [place] PCP QUAL, URINE Negative Negative 9:48 PM CDT [facility] [place] COCAINE QUAL URINE Negative Negative 2024 9:48 PM CDT [facility] [place] METHAMPHETAMINE QUAL, URINE Negative Negative 03/26/2025 9:48 PM CDT [facility] [place] OPIATE QUAL, URINE Negative Negative 2024 9:48 PM CDT [facility] [place] AMPHETAMINE QUAL, URINE Negative Negative 03/26/2025 9:[address] [facility] [place] BENZODIAZEPINE QUAL, URINE Presumptive Positive(A) Negative 03/26/2025 9:48 PM CDT [facility] TRICYCL[facility] QUAL, URINE Negative Negative 03/26/2025 9:48 PM CDT [facility] METHADONE QUAL, URINE Negative Negative 03/26/2025 9:48 PM CDT [facility] BARBITURATE QUAL, URINE Presumptive Positive(A) Negative 03/26/2025 9:48 PM CDT [facility] [place] OXYCODONE QUAL, URINE Negative Negative 03/26/2025 9:48 PM CDT [facility] FENTANYL QUAL, URINE Negative Negative 03/26/2025 9:48 PM CDT [facility] CREATININE, URINE 68.4 40.0 - 278.0 mg/dL 03/26/2025 9:48 PM CDT [facility] Comment:Reference Range vari es with fluid intake and diet. Urine URINE SPECIMEN OBTAINED BY CLEAN CATCH PROCEDURE / Unknown Collection / Unknown 03/26/2025 9:25 PM CDT 03/26/2025 9:31 PM CDT Narrative [facility] [place] - 03/26/2025 9:48 PM CDT This test is a qualitative screen. The presumptive positive results should not be used for legal purposes. If confirmation of results is desired, the lab must be contacted without delay. Drug Screening Threshold Amphetamines 500 ng/mL Barbiturates 200 ng/mL Benzodiazepines 150 ng/mL Cocaine Metabolites 150 ng/mL Fentanyl 5 ng/mL Methamphetamine 500 ng/mL Methadone 200 ng/mL Opiates 100 ng/mL Oxycodone 100 ng/mL Phencyclidine 25 ng/mL THC Cannabinoids 50 ng/mL Tricyclic Antidepressants 300 ng/mL Mary Beth Bray MD URINE ORDERABLES April tineo Result [facility] [place] GANESHEDUARDO # [id number] [address] [place] [address] * (ABNORMAL) URINALYSIS WITH REFLEX MICROSCOPIC (03/26/2025 9:25 PM CDT) Only the most recent of3 resultswithin the time period is included. COLOR UA Colorless(A) Pale to Dark Yellow 03/26/2025 9:34 PM CDT [facility] [place] CLARITY UA Clear Clear 03/26/2025 9:34 PM CDT [facility] [place] SPECIFIC GRAVITY UA 1.013 1.003 - 1.035 03/26/2025 9:[address] [facility] [place] PH UA 6.5 5.0 - 8.0 03/26/2025 9:34 PM CDT [facility] [place] LEUKOCYTE ESTERASE UA Negative Negative 03/26/2025 9:34 PM CDT [facility] [place] NITRITE UA Negative Negative 03/26/2025 9:34 PM CDT [facility] [place] PROTEIN UA Negative Negative 03/26/2025 9:34 PM CDT [facility] [place] GLUCOSE UA Negative Negative 03/26/2025 9:34 PM CDT [facility] [place] KETONES UA Negative Negative 03/26/2025 9:34 PM CDT [facility] [place] UROBILINOGEN UA <2.0 <2.0 mg/dL 9:34 PM CDT [facility] [place] BILIRUBIN UA Negative Negative 03/26/2025 9:34 PM CDT [facility] [place] BLOOD UA Negative Negative 03/26/2025 9:[address] [facility] [place] COMMENT, URINE Microscopic exam not indicated 03/26/2025 9:[address] [facility] [place] Urine URINE SPECIMEN OBTAINED BY CLEAN CATCH PROCEDURE / Unknown Collection / Unknown 03/26/2025 9:25 PM CDT 03/26/2025 9:30 PM CDT Mary Beth Bray MD URINE ORDERABLES April l Result [facility] [place] CLIA # [id number] [address] [facility] [place] [address] * ACUTE HEPATITIS PANEL (03/26/2025 5:17 PM CDT) HEPATITIS B SURFACE AG NON-REACT MECHE Non-react meche 03/26/2025 6:28 PM CDT [facility] Comment:A non-reactive test result does not exclude the possibility of exposure to or infection with hepatitis B. HEPATITIS B CORE IGM NON-REACT MECHE Non-react meche 03/26/2025 6:28 PM CDT [facility] Comment:IgM antibodies to HB c were not detected; does not exclude the possibility of exposure to HBV. HEPATITIS A IGM Non-react meche Non-react meche 03/26/2025 6:28 PM CDT [facility] Comment:A negative test resu lt does not exclude the possibility of exposure to Hepatitis A virus. HEPATITIS C AB NON-REACT MECHE Non-react meche 03/26/2025 6:28 PM CDT [facility] Comment:Antibodies to HCV we re not detected, does not exclude the possibility of exposure to HCV. Blood Venipuncture / Unknown 03/26/2025 5:17 PM CDT 03/26/2025 5:22 PM CDT us Mary Beth Bray MD CHEMISTRY ORDERABLES Final Result [facility] # [id number] [address] [place] [address] [place] [address] * (ABNORMAL) LACTIC ACID (03/26/2025 5:17 PM CDT) LACTIC ACID 2.3(H) <=2.0 mmol/L 03/26/2025 5:51 PM CDT [facility] Blood Venipuncture / Unknown 03/26/2025 5:17 PM CDT 03/26/2025 5:23 PM CDT us Mary Beth Bray MD CHEMISTRY ORDERABLES Final Result Performing Organization Address City/[facility]/ZIP Co de Phone Number [facility] [place] # [id number] [address] [place] [address] [place] [address] * PHOSPHORUS (03/26/2025 5:17 PM CDT) Only the most recent of2 resultswithin the time period is included. PHOSPHORUS 4.0 2.5 - 4.5 mg/dL 03/26/2025 5:[address] [facility] Blood Venipuncture / Unknown 03/26/2025 5:17 PM CDT 03/26/2025 5:22 PM CDT us Mary Beth Bray MD CHEMISTRY ORDERABLES Final Result Performing Organization Address [facility] Co de Phone Number [facility] # [id number] [address] [place] [address] [place] [address] * MAGNESIUM LEVEL (03/26/2025 5:17 PM CDT) Only the most recent of3 resultswithin the time period is included. MAGNESIUM 2.0 1.6 - 2.6 mg/dL 03/26/2025 5:[address] [facility] Blood Venipuncture / Unknown 03/26/2025 5:17 PM CDT 03/26/2025 5:22 PM CDT us Mary Beth Bray MD CHEMISTRY ORDERABLES Final Result Performing Organization Address City/[facility]/ZIP Co de Phone Number [facility] [place] # [id number] [address] [facility] [place] [address] * (ABNORMAL) LIPASE (03/26/2025 5:17 PM CDT) Only the most recent of2 resultswithin the time period is included. LIPASE 64(H) 13 - 60 U/L 03/26/2025 9:[address] [facility] Blood Venipuncture / Unknown 03/26/2025 5:17 PM CDT 03/26/2025 5:22 PM CDT Mary Beth Bray MD CHEMISTRY ORDERABLES Final Result Performing Organization Address City/[facility]/ZIP Co de Phone Number [facility] # [id number] [address] [place] [address] [place] [address] * (ABNORMAL) ETHANOL LEVEL (03/26/2025 5:17 PM CDT) Only the most recent of3 resultswithin the time period is included. ETHANOL 110.00(H) <10.10 mg/dL 03/26/2025 5:[address] [facility] ETHANOL % 0.11 %w/v 03/26/2025 5:[address] [facility] Blood Venipuncture / Unknown 03/26/2025 5:17 PM CDT 03/26/2025 5:22 PM CDT Mary Beth Bray MD CHEMISTRY ORDERABLES Final Result Performing Organization Address [facility] Co de Phone Number [facility] # [id number] [address] [place] [address] [place] [address] * CT URINARY CALCULI WO CONTRAST (03/16/2025 1:45 PM CDT) Anatomical Region Laterality Modality Abdomen Computed Tomogra phy 03/16/2025 1:35 PM CDT Impressions 03/16/2025 1:55 PM CDT IMPRESSION: Please see below. Exam: CT URINARY CALCULI WO CONTRAST Date/Time of Exam: 03/16/2025 1:45 PM REASON FOR EXAM: Flank pain, stone disease suspected. DIAGNOSIS: See Reason for Exam. Technique: CT imaging was performed of the pelvis for urinary calculi without the administration of intravenous contrast. Findings: ABDOMEN: Two nonobstructing right renal calculi measure 4 mm. A tiny nonobstructing left renal calculus in the mid kidney measures 1 to 2 mm. The ureters are unremarkable. There are no inflammatory changes in the kidneys, ureters, or bladder. The lung bases are clear. The liver, gallbladder, and biliary tree unremarkable. The spleen, adrenal glands, and pancreas are within normal limits. The stomach and small bowel loops are normal in appearance. The colon is unremarkable with appendectomy changes seen in the right lower quadrant. There is no pathologic mesenteric or retroperitoneal adenopathy. The unenhanced vascular structures are within normal limits. There is thoracic spondylosis with exaggerated thoracic kyphosis. Pelvis: There is no free fluid in the pelvis. The bladder is unremarkable. The prostate is within normal. No pathologic inguinal or pelvic adenopathy. The bony pelvis is intact. IMPRESSION: 1. Nonobstructing bilateral nephrolithiasis with two 4 mm calculi on the right and a single 1 to 2 mm calculus on the left. 2. Additional incidental findings as above. Narrative Procedure Note Stanley Still MD - 03/16/2025 IMPRESSION: Please see below. Exam: CT URINARY CALCULI WO CONTRAST Date/Time of Exam: 03/16/2025 1:45 PM REASON FOR EXAM: Flank pain, stone disease suspected. DIAGNOSIS: See Reason for Exam. Technique: CT imaging was performed of the pelvis for urinary calculi without the administration of intravenous contrast. Findings: ABDOMEN: Two nonobstructing right renal calculi measure 4 mm. A tiny nonobstructing left renal calculus in the mid kidney measures 1 to 2 mm. The ureters are unremarkable. There are no inflammatory changes in the kidneys, ureters, or bladder. The lung bases are clear. The liver, gallbladder, and biliary tree unremarkable. The spleen, adrenal glands, and pancreas are within normal limits. The stomach and small bowel loops are normal in appearance. The colon is unremarkable with appendectomy changes seen in the right lower quadrant. There is no pathologic mesenteric or retroperitoneal adenopathy. The unenhanced vascular structures are within normal limits. There is thoracic spondylosis with exaggerated thoracic kyphosis. Pelvis: There is no free fluid in the pelvis. The bladder is unremarkable. The prostate is within normal. No pathologic inguinal or pelvic adenopathy. The bony pelvis is intact. IMPRESSION: 1. Nonobstructing bilateral nephrolithiasis with two 4 mm calculi on the right and a single 1 to 2 mm calculus on the left. 2. Additional incidental findings as above. Candy Griffin BATTERY HAND CT ORDERABLES Final R esult * TROPONIN 6 HR, 5TH GEN (03/08/2025 10:06 PM CDT) TROPONIN T, 6 HR 5TH GEN <6 <=15 ng/L 03/08/2025 11:14 PM CDT [facility] Blood Venipuncture / Unknown 03/08/2025 10:06 PM CDT 03/08/2025 10:20 PM CDT [facility] - 03/08/2025 11:14 PM CDT Troponin Undetectable Unable to calculate delta. Delay in collection of timed specimen beyond recommended collection interval. Results must be interpreted in clinical context. Britni Cohn DO CHEMISTRY ORDERABLES April l Result Performing Organization Address City/State/[facility] Co de Phone Number [facility] CLIA # [id number] [address] [place] [address] * TROPONIN 2 HR, 5TH GEN (03/07/2025 11:30 PM CDT) TROPONIN T, 2 HR 5TH GEN <6 <=15 ng/L 03/08/2025 12:[address] [facility] Blood Venipuncture / Unknown 03/07/2025 11:30 PM CDT 03/07/2025 11:36 PM CDT [facility] - 03/08/2025 12:08 AM CDT Troponin Undetectable Unable to calculate delta. Britni McgovernIPM [place] CHEMISTRY ORDERABLES April l Result Performing Organization Address City/State/[facility] Co de Phone Number [facility] CLIA # [id number] [id number] [place] [address] * TROPONIN BASELINE, 5TH GEN (03/07/2025 10:19 PM CDT) TROPONIN T, BASELINE 5TH GEN <6 <=15 ng/L 03/07/2025 11:08 PM CDT [facility] Blood Venipuncture / Unknown 03/07/2025 10:19 PM CDT 03/07/2025 10:36 PM CDT [facility] - 03/07/2025 11:08 PM CDT Troponin Undetectable Britni Cohn DO CHEMISTRY ORDERABLES April l Result Performing Organization Address [facility] de Phone Number [facility] CLIA # [id number] [address] [address] * ACETAMINOPHEN LEVEL (03/07/2025 10:19 PM CDT) ACETAMINOPHEN LEVEL <5 0 - 30 ug/mL 03/07/2025 11:25 PM CDT [facility] Blood Venipuncture / Unknown 03/07/2025 10:19 PM CDT 03/07/2025 10:36 PM CDT [facility] - 03/07/2025 11:25 PM CDT Therapeutic Range: 10-30 ug/mL The following Acetaminophen levels are associated with possible toxicity: 4 hours after dose >200 ug/mL 8 hours after dose >100 ug/mL 12 hours after dose >50 ug/mL Britni Cohn DO CHEMISTRY ORDERABLES April l Result Performing Organization Address [facility] Co de Phone Number [facility] CLIA # [id number] [address] [address] * SALICYLATE LEVEL (03/07/2025 10:19 PM CDT) SALICYLATE LEVEL <0.3 0.0 - 10.0 mg/dL 03/07/2025 11:25 PM CDT [facility] Blood Venipuncture / Unknown 03/07/2025 10:19 PM CDT 03/07/2025 10:36 PM CDT Narrative [facility] - 03/07/2025 11:25 PM CDT Negative <3.0 mg/dL Therapeutic 3.0 - 10 mg/dL Toxicity >30 mg/dl Lethal >60 mg/dL us Britni Cohn DO CHEMISTRY ORDERABLES April l Result [facility] CLIA # [id number] [address] [place] [address] * EKG 12-LEAD (03/07/2025 9:15 PM CDT) 03/07/2025 9:15 PM CDT Narrative INTERFACE SYSTEM - 03/09/2025 2:14 PM CDT [address] [address] Test Date: 2025-03-07 Pat Name: CHEVY HUDSON Department: 11 Room: E E Gender: Male [employer]: [id number] : 1995 Requested By: Order Number: [id number] Reading MD: Ceilna Strauss Measurements Intervals Alvin Rate: 79 P: 62 CA: 122 QRS: 53 QRSD: 74 T: 47 QT: 398 QTc: 456 Interpretive Statements Normal sinus rhythm with sinus arrhythmia Normal ECG Electronically Signed On 03-09-2025 14:14:51 CDT by Celina Strauss Procedure Note Provider, Historical - 03/09/2025 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: [id number] : 1995 Requested By: Order Number: [id number] Reading MD: Celina Strauss Measurements Intervals Alvin Rate: 79 P: 62 CA: 122 QRS: 53 QRSD: 74 T: 47 QT: 398 QTc: 456 Interpretive Statements Normal sinus rhythm with sinus arrhythmia Normal ECG Electronically Signed On 03-09-2025 14:14:51 CDT by Celina Strauss us Britni Cohn DO ECG ORDERABLES Final Res ult INTERFACE SYSTEM Refer to clinic/hospital department * XR CHEST PA OR AP 1 VW (03/07/2025 9:08 PM CDT) Anatomical Region Laterality Modality Chest Computed Radiogr aphy 03/07/2025 9:08 PM CDT Impressions 03/08/2025 1:21 PM CDT IMPRESSION: Please see below. Exam: XR CHEST PA OR AP 1 VW Date/Time of Exam: 03/07/2025 9:08 PM Reason For Exam: Chest Pain. Diagnosis: See Reason for Exam. Findings: The AP upright study is compared to the exam of 04/24/2014. The lungs are well-inflated. There is no pneumothorax. The lungs are clear. The cardiomediastinal silhouette and pulmonary vessels are unremarkable. The bony thorax is grossly intact. IMPRESSION: No significant radiographic abnormality. Narrative Procedure Note Meli Tyson MD - 03/08/2025 IMPRESSION: Please see below. Exam: XR CHEST PA OR AP 1 VW Date/Time of Exam: 03/07/2025 9:08 PM Reason For Exam: Chest Pain. Diagnosis: See Reason for Exam. Findings: The AP upright study is compared to the exam of 04/24/2014. The lungs are well-inflated. There is no pneumothorax. The lungs are clear. The cardiomediastinal silhouette and pulmonary vessels are unremarkable. The bony thorax is grossly intact. IMPRESSION: No significant radiographic abnormality. Britni Cohn DO DIAGNOSTIC IMAGING ORDERA BLES Final Result from Last 3 Months Insurance [employer] [place] [place] MEDICA[place] RX INFOCROSSING Medicaid Advance Directives For more information, please contact: [phone] * Full Code (Latest Code Status on File) Date Activated Date Inactivated Comments 03/26/2025 4:31 PM 03/29/2025 5:29 PM * Full Code Date Activated Date Inactivated Comments 03/07/2025 11:30 PM 03/11/2025 8:54 PM Care Teams Spanish Linguist Relationship Specialty Start Date End Date Osvaldo Leal Jr., MD [address] [address] PCP - General Family Practice 08/07/14
--- OUTSIDE RECORDS SUMMARY | 2025-05-25 12:28 | XMS_ITS | Data Portability ---
Author Organization [facility] Address [address] [facility] [address] [place] [address] Assessment No assessment recorded. Plan of Treatment Reminders Order Date Submit Date Provider Last Modified By Organization Details Last Modified Time Details Appointments None recorded. Lab None recorded. Referral None recorded. Procedures None recorded. Surgeries None recorded. Imaging None recorded. Medication Orders Medrol (Jossue) 4 mg tablets in a dose pack 2017 018 INTERFACE [facility], [address] [place] [address] [place] [address], [id number], 8 18:26:49 Patient TargetsNo targets recorded. Patient Instructions Encounter Date Encounter Id Patient Instructions Last Modified By Organization Details Last Modified Time 09/03/2017 [id number] Take medication as directed. Instructed to go to the ER if resp become labored or shortness of breath becomes uncontrolled. Recomend f/u with PCM for asthma control. [email or web address] Not available 09/03/2017 19:39:59 Reason for Referral None Reported. Problems No Known Problems Procedures Surgical History Date Name Laterality Status Provider Name and Address Organization Details Recorded Time 8 Nebulizer Treatment completed Willem Hirsch [facility] 09/03/2017 19:40:20 Imaging Results None recorded. Procedure Notes None recorded. Medical Equipment None Reported. Allergies No known drug allergies Medications Name Sig Start Date Stop Date Status Note LastModified by Organization Details LastModified Time Medrol (Jossue) 4 mg tablets in a dose pack Take 1 dose pk by oral route as directed for 6 days. 2017 active Not Available Not Available Not Avai lable prednisone 20 mg tablet Take 1 tablet 3 times a day by oral route for 5 days. 2017 active Not Available Not Available Not Avai lable clonazepam 1 mg tablet active Not Available Not Available No t Available pantoprazole 40 mg tablet,delayed release active Not Available Not Available Not Available Vitals Date Recorded Body weight Heart rate Oxygen saturation Body temperature Systolic And Diastolic Provider Name and Address Organization Details Last Updated DateTime 8 783947. 51 g 102 /min 94 % 98.1 [degF] 118/82 mm[Hg] Barbara Ross [facility] 8 18:00:43 Social History None recorded. Functional Status None recorded. Mental Status None recorded. Family History Nothing Reported. Medical History No medical history recorded. Past Encounters Encounter ID Performer Location Encounter Start Date Encounter Closed Date Diagnosis/Indication Diagnosis SNOMED-CT Code Diagnosis ICD10 Code Diagnosis IMO Codes Diagnosis Note [id number] Rodney Hirsch PA-C [facility] [address] [address] 09/03/2017 17:54:12 09/05/2017 13:14:57 Acute asthma 118160634 J45.901 Health Concerns Section Related Observation LastModified by Organization Detai ls LastModified Time None Recorded Concern Status LastModified by Organization Details LastModified Time None Recorded Advance Directives Directive None Recorded Payers Insurance Date Sequence Insurance Name Policy Number Policy Velarde Covered Member ID Velarde Member ID Guarantor Name 09/03/2017 1 [facility] ([facility] Ngozi Balbir [id number] Richar Hudson Notes Date Note Type Note Provider Name and Address Organization Details Recorded Time 09/03/2017 text/html ROS as noted in the HPI Pt has a hx of asthma. States for the past 3 days he has had shortness of breath, dyspnea and wheezing. Pt states he has been using his inhaler a lot over ths past 2-3 days. States he has no sore throat or sinus congestion Willem qureshi [facility] 09/03/2017 19:40:46
--- OUTSIDE RECORDS SUMMARY | 2025-05-25 12:28 | XMS_ITS | Clinical Summary ---
Author Organization [facility] Address [address] [place] [address] Care Team Providers Care Side Seam Tender Name Role Phone eMl Nagel MD, Osvaldo Craig Primary Care Provider Allergies No known active allergies Medications Nebulizer & Compressor For Neb Device by [facility].(Non-Drug ; Combo Route) route. Active Miscellaneous Medical Supply Sweat Chloride Test please. Attn: Dr. Ramin Bowman. 1 Each 0 4 Active diphenhydrAMINE (BENADRYL) 25 mg capsule Take 25 mg by mouth every 6 hours as needed for Allergies. Active clonazePAM (KLONOPIN) 1 mg tablet Take 1 mg by mouth 2 times daily. Active predniSONE (DELTASONE) 5 mg tablet Take 5 mg by mouth daily. Active mometasone (NASONEX) 50 mcg/actuation Royal, Non-AerosolIndica tions:Allergic rhinitis, unspecified allergic rhinitis type Administer 1 Royal in each nostril 2 times daily. 17 Gram 3 5 Active ranitidine (ZANTAC) 75 mg TabletIndications :Moderate persistent asthma without complication Take 75 mg by mouth 2 times daily. Active fluticasone-salme terol (ADVAIR DISKUS) 250-50 mcg/dose disk inhalerIndication s:Moderate persistent asthma without complication Take 1 Puff by inhalation daily. 1 Inhaler 6 5 Active albuterol HFA 90 mcg inhalerIndication s:Moderate persistent asthma without complication Take 2 Puffs by inhalation every 4 hours as needed (cough, wheeze, or difficulty breathing). 8.5 Gram 6 5 Active albuterol (PROVENTIL,VENTOL IN) 2.5 mg /3 mL (0.083 %) Solution for NebulizationIndic ations:Moderate persistent asthma without complication Take 3 mL (2.5 mg) by inhalation every 4 hours as needed for Shortness of Breath, Wheezing or Other (See Comment) (cough). 90 mL 6 5 Active Active Problems Problem Noted Date Diagnosed Date Allergic rhinitis 05/18/2015 Nicotine addiction 08/07/2014 Asthma 04/24/2014 Resolved Problems Problem Noted Date Diagnosed Date Resolved Date Switched to snuff from cigarettes 05/07/2014 08/07/2014 Cigarette nicotine dependence, uncomplicated 4 05/07/2014 Immunizations Immunization Administration Dates Next Due (M-M-R [...] Comments Allergy-severe Brother Terrance lives in other [facility] Asthma Brother Terrance lives in other [facility] GERD Brother Terrance lives in other [facility] GERD Father Nathan Allergic Rhinitis Neg Hx Cystic Fibrosis Neg Hx Eczema Neg Hx Immunodeficiency Neg Hx Tuberculosis Neg Hx Relation Name Status Comments Brother Terrance lives in other [facility] Alive Father Nathan Mother Alexi in [place] Alive Paternal Grandfather Beneditco [place] Alive Paternal Grandmother Yumiko [place] Alive Sister Deepika live in [place] Alive Social History Tobacco Use Types Packs/Day Years Used Date Smoking Tobacco: Light Smoker Smokeless Tobacco: Never Tobacco Cessation:Counseling Given: Yes Alcohol Use Standard Drinks/Week Comments Not Asked 0 (1 standard drink = 0.6 oz pur e alcohol) Sex and Gender Information Value Date Recorded Sex Assigned at Not on file Legal Sex Male 6:27 AM DIRECTOR EXTERNAL COMMUNICATIONS Gender Identity Not on file Sexual Orientation Not on file Occupation Industry Job Start Date Job End Date Not on file Not on file Not on file Not on file Last Filed Vital Signs Vital Sign Reading Time Taken Comments Blood Pressure 112/72 05/18/2015 10:34 AM DIRECTOR EXTERNAL COMMUNICATIONS Pulse 61 04/23/2015 2:57 PM CDT Temperature - - Respiratory Rate 15 04/23/2015 2:57 PM CDT Oxygen Saturation 100% 04/23/2015 2:57 PM CDT Inhaled Oxygen Concentration - - Weight 94.8 kg (209 lb) 05/18/2015 10:34 AM DIRECTOR EXTERNAL COMMUNICATIONS Height 172.7 cm (5' 8 ) 05/18/2015 10:34 AM DIRECTOR EXTERNAL COMMUNICATIONS Body Mass Index 31.78 05/18/2015 10:34 AM DIRECTOR EXTERNAL COMMUNICATIONS Plan of Treatment Health Maintenance Due Date Last Done Comments DTAP/TDAP/TD VACCINES (6 - Tdap) 2008 11/22/2002, 03/24/1999, 07/04/1998, Additional history exists HPV VACCINES (1 - 3-dose SCD M series) 2024 INFLUENZA VACCINE (#1) 2025 HEPATITIS B VACCINES Completed 07/04/1998, 02/02/1998, 1997 Insurance CHOICE [facility] CHOICE [facility] Advance Directives For more information, please contact: [phone] Documents on File Type Date Recorded 

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
--- OUTSIDE RECORDS SUMMARY | 2025-05-25 12:28 | XMS_ITS | Data Portability ---
Author Organization [facility], [employer] Address [address], [address] [place] [address] Assessment Encounter Date Assessment Date Assessment LastModified by Organization Details LastModified Time 03/16/2017 03/16/2017 21yo M. f/u for low back pain, persistent pain, refer to specialist for review and recommendations. Continue asthma treatment. [email or web address] Not available 03/21/2017 18:39:00 02/28/2018 02/28/2018 Well-appearing 22 year old male with no health concerns. Immunizations given today include flu and pneumonia. Preventive health measures discussed. Healthy eating habits and physical activity were discussed. Screening labs ordered- treat according to results. Continue current medications, with addition of singulair for allergies. f/u in 1 year for annual physical or sooner prn. [email or web address] Not available 02/28/2018 11:39:52 04/05/2018 04/05/2018 22yo M. w/ back pain related to scoliosis. Continue current medications. Continue PT and treatment with the spine center. f/u prn. [email or web address] Not available 04/05/2018 18:28:04 Plan of Treatment Reminders Order Date Submit Date Provider Last Modified By Organization Details Last Modified Time Details Appointments None recorded. Lab CBC w/ auto diff 2017 018 [facility], [address], [address], 8 09:02:31 TSH, serum or plasma 2017 018 [facility], [address] [place], [address], 8 09:02:32 HbA1c (hemoglob in A1c), blood 2017 018 GWENDOLYN [facility], [address], [place], [address], 8 09:02:32 CMP, serum or plasma 2017 018 GWENDOLYN [facility], [address], [place], [address], 8 09:02:31 influenza A and B Ag, rapid 2012 013 [email or web address] In-House Results, For Internal Use Only, Do Not Delete/merge, [id number] 3 14:46:58 tox screen, urine 2012 013 GWENDOLYN In-House Results, For Internal Use Only, Do Not Delete/merge, [id number] 3 14:48:50 Referral spine center referral - Evaluate and treat chronic back pain/scol iois. 2017 018 [email or web address] Stanley Protestant ([facility]), [address], [address], [place], [address], 8 09:57:31 physical therapist referral - Evaluate and treat chronic back pain related to kyphoscol iosis 2017 018 sadaf [facility], [address] [facility], [address], [place], [address], 8 10:21:57 spine center referral - Evaluate and treat chronic back pain/scol iois. 2017 018 [email or web address] Stanley Protestant ([facility]), [address], [place], [address], 8 11:17:29 spine center referral - evaluate and treat chronic back pain, hx of scoliosis 2016 017 sadaf Crenshaw ([facility]), [address], [address], [place], [address], 7 10:20:00 Procedures None recorded. Surgeries None recorded. Imaging None recorded. Medication Orders Singulair 10 mg tablet [address] [facility], [address], [address], 8 11:06:06 ProAir HFA 90 mcg/actua tion aerosol inhaler [address] [facility], [address] [place] [address], [address], 8 11:06:06 Advair Diskus 500 mcg-50 mcg/dose powder for inhalatio n [address] [facility], [address], [address], 8 11:06:06 ProAir RespiClic k 90 mcg/actua tion breath activated [address] [facility], [address], [address], 7 11:13:54 Advair Diskus 500 mcg-50 mcg/dose powder for inhalatio n [address] [facility], [address], [address], 7 11:13:54 clonazepa m 1 mg disintegr ating tablet 2016 017 [facility], [address] [place], [place], [id number], 7 18:01:56 tizanidin e 2 mg tablet 2016 017 [facility]91541, [address], [place], [place], [id number], 7 18:01:56 Advair Diskus 500 mcg-50 mcg/dose powder for inhalatio n [address] [facility]91227, [address], [place], [place], [id number], 7 18:01:49 ProAir RespiClic k 90 mcg/actua tion breath activated [address] [facility]80614, [address], [place], [place], [id number], 7 18:01:49 azithromy nelson 250 mg tablet [address], [facility] [address], [place], [address], 7 17:46:17 prednison e 20 mg tablet [address], [facility] [address], [place], [address], 7 17:46:15 Patient TargetsNo targets recorded. Patient Instructions Encounter Date Encounter Id Patient Instructions Last Modified By Organization Details Last Modified Time 05/01/2013 [id number] upper respirator y infection (cold) in children: care instructions [email or web address] Not available 05/01/2013 14:48:58 upper respirator y infection (cold): care instructions [email or web address] Not available 05/01/2013 14:48:59 Discussed the likely viral etiology with the pt's caregiver. Questions are answered and concerns addressed.Discusse d supportive treatment for URI including appropriate use of OTC remedies. Advised the use of decongestants and antihistamines (Delsym, Triaminic, robitussin), dscouraged the use of antitussives. Advised adequate clear fluid intake as well as steam and humidification. Monitor for worsening symptoms including shortness of breath, fevers, or other concerns. Medications prescribed as above. Dscussed appropriate use and possible side effects.reviewed treatment plan with family/parent. Parent agrees with the plan and verbalizes understanding. Will call or RTC prn, otherwise as scheduled [email or web address] Not available 05/01/2013 14:15:17 Reason for Referral Spine Center Referral for Lo w back pain evaluate and treat chronic back pain, hx of scoliosis Referring Physician: Jase Curry [facility], Encounter Date: 03/16/2017 Physical Therapist Referral for Kyphoscoliosis deformity of spine Evaluate and treat chronic back pain related to kyphoscoliosis Referring Physician: Jase Curry [facility], Encounter Date: 02/28/2018 Spine Center Referral for Ky phoscoliosis deformity of spine Evaluate and treat chronic back pain/scoliois. Referring Physician: Jase Curry [facility], Encounter Date: 02/28/2018 Spine Center Referral for Ky phoscoliosis deformity of spine Evaluate and treat chronic back pain/scoliois. Referring Physician: Jase Curry [facility], Encounter Date: 04/05/2018 Results Created Date Observation Date Name Description Value Unit Range Abnormal Flag Note LastModifiedBy Organization Detail LastModifiedTime 05/01/20 13 05/01/2013 tox scree n, urine Suboxone Not Available In-House Results For Internal Use Only, Do Not Delete/merge, [id number] 05/01/2013 14:32:00 05/01/20 13 05/01/2013 tox scree n, urine Opiates negati ve Not Available In-House Results For Internal Use Only, Do Not Delete/merge, [id number] 05/01/2013 14:32:00 05/01/20 13 05/01/2013 tox scree n, urine Oxycodone negati ve Not Available In-House Results For Internal Use Only, Do Not Delete/merge, [id number] 05/01/2013 14:32:00 05/01/20 13 05/01/2013 tox scree n, urine PPX Not Available In-House Results For Internal Use Only, Do Not Delete/merge, [id number] 05/01/2013 14:32:00 05/01/20 13 05/01/2013 tox scree n, urine PCP Not Available In-House Results For Internal Use Only, Do Not Delete/merge, [id number] 05/01/2013 14:32:00 05/01/20 13 05/01/2013 tox scree n, urine Barbituates Not Available In-Guerda se Results For Internal Use Only, Do Not Delete/merge, [id number] 05/01/2013 14:32:00 05/01/20 13 05/01/2013 tox scree n, urine Benzodiazepi shankar negati ve Not Available In-House Results For Internal Use Only, Do Not Delete/merge, [id number] 05/01/2013 14:32:00 05/01/20 13 05/01/2013 tox scree n, urine Cocaine negati ve Not Available In-House Results For Internal Use Only, Do Not Delete/merge, 05/01/2013 14:32:00 05/01/20 13 05/01/2013 tox scree n, urine Amphetamine negati ve Not Available In-House Results For Internal Use Only, Do Not Delete/merge, [id number] 05/01/2013 14:32:00 05/01/20 13 05/01/2013 tox scree n, urine M-amphetamin e negati ve Not Available In-House Results For Internal Use Only, Do Not Delete/merge, 05/01/2013 14:32:00 05/01/20 13 05/01/2013 tox scree n, urine THC Not Available In-House Results For Internal Use Only, Do Not Delete/merge, 05/01/2013 14:32:00 05/01/20 13 05/01/2013 tox scree n, urine Methadone Not Available In-House Results For Internal Use Only, Do Not Delete/merge, [id number] 05/01/2013 14:32:00 05/01/20 13 05/01/2013 tox scree n, urine MDMA Not Available In-House Results For Internal Use Only, Do Not Delete/merge, 05/01/2013 14:32:00 05/01/20 13 05/01/2013 influ aminata A and B Ag, rapid Flu negati ve Not Available In-House Results For Internal Use Only, Do Not Delete/merge, [id number] 05/01/2013 14:15:18 02/29/20 18 03/02/2018 CMP, serum or plasm a glucose 175 mg/dL 65-99 high Fasti ng refer ence inter ramón For someo ne witho ut known diabe mila, a gluco se value >125 mg/dL indic ates that they may have diabe mila and this shoul d be confi rmed with a follo w-up test. Not Available [address], [address], 03/02/2018 09:02:31 02/29/2003/02/2018 CMP, serum or plasm a urea nitrogen (BUN) 14 mg/dL 7-25 normal Not Available [employer] [address], [address], 03/02/2018 09:02:31 02/29/2003/02/2018 CMP, serum or plasm a creatinine 1.13 mg/dL 0.60-1 .35 normal Not Available [employer] [facility] [address] [address] [place], [address], 03/02/2018 09:02:31 02/29/2003/02/2018 CMP, serum or plasm a eGFR non-afr. jamaican 93 mL/mi n/1.7 3m2 > or = 60 normal Not Available [address] [address] [place], [address], 03/02/2018 09:02:31 02/29/2003/02/2018 CMP, serum or plasm a eGFR 108 mL/mi n/1.7 3m2 > or = 60 normal Not Available [employer] [address] [address] [place], [address], 03/02/2018 09:02:31 02/29/2003/02/2018 CMP, serum or plasm a BUN/creatini ne ratio NOT APPLIC ABLE (calc ) 6-22 Not Available [employer] [address], [address], 03/02/2018 09:02:31 02/29/20 18 03/02/2018 CMP, serum or plasm a sodium 139 mmol/ L 135-14 6 normal Not Available [address], [address], 03/02/2018 09:02:31 02/29/2003/02/2018 CMP, serum or plasm a potassium 4.5 mmol/ L 3.5-5. 3 normal Not Available [address], [address], 03/02/2018 09:02:02/29/2003/02/2018 CMP, serum or plasm a chloride 103 mmol/ L 98-110 normal Not Available [address], [address], 03/02/2018 09:02:02/29/2003/02/2018 CMP, serum or plasm a carbon dioxide 25 mmol/ L 18-30 normal Not Available [address], [address], 03/02/2018 09:02:31 02/29/2003/02/2018 CMP, serum or plasm a calcium 10.1 mg/dL 8.6-10 .3 normal Not Available [address], [address], 03/02/2018 09:02:02/29/2003/02/2018 CMP, serum or plasm a protein, total 6.3 g/dL 6.1-8. 1 normal Not Available [address], [address], 03/02/2018 09:02:31 02/29/2003/02/2018 CMP, serum or plasm a albumin 4.2 g/dL 3.6-5. 1 normal Not Available [address], [address], 03/02/2018 09:02:31 02/29/2003/02/2018 CMP, serum or plasm a globulin 2.1 g/dL_ (calc ) 1.9-3. 7 normal Not Available [address], [address], 03/02/2018 09:02:31 02/29/2003/02/2018 CMP, serum or plasm a albumin/glob ulin ratio 2.0 (calc ) 1.0-2. 5 normal Not Available [address], [address], 03/02/2018 09:02:02/29/2003/02/2018 CMP, serum or plasm a bilirubin, total 0.6 mg/dL 0.2-1. 2 normal Not Available [address], [address], 03/02/2018 09:02:02/29/2003/02/2018 CMP, serum or plasm a alkaline phosphatase 69 U/L 40-115 normal Not Available [facility] [employer] [facility] [address], [address], 03/02/2018 09:02:02/29/2003/02/2018 CMP, serum or plasm a AST 33 U/L 10-40 normal Not Available [address], [address], 03/02/2018 09:02:02/29/2003/02/2018 CMP, serum or plasm a ALT 51 U/L 9-46 high Not Available [employer] [address], [address], 03/02/2018 09:02:02/29/2003/02/2018 CBC w/ auto diff white blood cell count 7.6 thous and/u L 3.8-10 .8 normal Not Available [address], [address], 03/02/2018 09:02:31 02/29/20 18 03/02/2018 CBC w/ auto diff red blood cell count 5.09 claudio on/uL 4.33-5 .82 normal Not Available [address], [address], 03/02/2018 09:02:31 02/29/20 18 03/02/2018 CBC w/ auto diff hemoglobin 14.9 g/dL 13.7-1 7.7 normal Not Available [address], [address], 03/02/2018 09:02:02/29/20 18 03/02/2018 CBC w/ auto diff hematocrit 45.0 % 41.5-5 3.8 normal Not Available [address], [address], 03/02/2018 09:02:31 02/29/20 18 03/02/2018 CBC w/ auto diff MCV 88.4 fL 80.0-1 00.0 normal Not Available [address], [address], 03/02/2018 09:02:31 02/29/20 18 03/02/2018 CBC w/ auto diff MCH 29.4 pg 27.0-3 3.0 normal Not Available [address], [address], 03/02/2018 09:02:31 02/29/20 18 03/02/2018 CBC w/ auto diff MCHC 33.2 g/dL 32.0-3 6.0 normal Not Available [address], [address], 03/02/2018 09:02:31 02/29/20 18 03/02/2018 CBC w/ auto diff RDW 12.5 % 11.0-1 5.0 normal Not Available [address], [address], 03/02/2018 09:02:31 02/29/20 18 03/02/2018 CBC w/ auto diff platelet count 298 thous and/u L 140-40 0 normal Not Available [address], [address], 03/02/2018 09:02:31 02/29/20 18 03/02/2018 CBC w/ auto diff MPV 10.2 fL 7.5-12 .5 normal Not Available [address], [address], 03/02/2018 09:02:31 02/29/20 18 03/02/2018 CBC w/ auto diff absolute neutrophils 3838 cells /uL 1500-7 800 normal Not Available [address], [address], 03/02/2018 09:02:31 02/29/20 18 03/02/2018 CBC w/ auto diff absolute lymphocytes 2789 cells /uL 850-39 00 normal Not Available [address], [address], 03/02/2018 09:02:31 02/29/20 18 03/02/2018 CBC w/ auto diff absolute monocytes 403 cells /uL 200-95 0 normal Not Available [address], [address], 03/02/2018 09:02:31 02/29/20 18 03/02/2018 CBC w/ auto diff absolute eosinophils 547 cells /uL 15-500 high Not Available [address], [address], 03/02/2018 09:02:31 02/29/20 18 03/02/2018 CBC w/ auto diff absolute basophils 23 cells /uL 0-200 normal Not Available [address], [address], 03/02/2018 09:02:31 02/29/20 18 03/02/2018 CBC w/ auto diff neutrophils 50.5 % normal Not Available [address], [address], 03/02/2018 09:02:31 02/29/20 18 03/02/2018 CBC w/ auto diff lymphocytes 36.7 % normal Not Available [address], [address], 03/02/2018 09:02:31 02/29/20 18 03/02/2018 CBC w/ auto diff monocytes 5.3 % normal Not Available [address], [address], 03/02/2018 09:02:31 02/29/20 18 03/02/2018 CBC w/ auto diff eosinophils 7.2 % normal Not Available [address], [address], 03/02/2018 09:02:31 02/29/20 18 03/02/2018 CBC w/ auto diff basophils 0.3 % normal Not Available [address], [address], 03/02/2018 09:02:31 02/29/20 18 03/02/2018 TSH, serum or plasm a TSH 2.96 mIU/L 0.40-4 .50 normal Not Available [address], [address], 03/02/2018 09:02:32 02/29/20 18 03/02/2018 HbA1c (hemo globi n A1c), blood hemoglobin A1C 5.0 %_of_ total _HGB <5.7 normal For the purpo se of nicolas august for the prese nce of diabe mila: <5.7% Consi stent with the absen ce of diabe mila 5.7-6 .4% Consi stent with incre ased risk for diabe mila (pred iabet es) > or =6.5% Consi stent with diabe mila This assay resul t is consi stent with a decre ased risk of diabe mila. Curre ntly, no conse nsus exist s corrine salazar use of hemog lobin A1c for diagn osis of diabe mila in child blanca. Accor marie to Ameri can Diabe mila Assoc iatio n (ADA) guide lines , hemog lobin A1c <7.0% repre sents optim al contr ol in non-p regna nt diabe tic patie nts. Diffe rent metri cs may apply to speci fic patie nt popul ation s. Stand ards of Medic al Care in Diabe mila(A DA). Not Available [employer] [facility] [address], [place], [address], 03/02/2018 09:02:32 07/17/19 14 07/17/2013 x-ray , hand No observ ation record ed. [facility] [address], [place], [address], 08/05/2013 16:58:17 Result Notes None recorded. 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 Active Tristan Rose [facility] 3 14:46:56 Cough 27006836 Active Not Available [facility] 3 03:00:52 Common cold 13252172 Active Tristan Rose [facility] 3 14:46:56 Acute asthma 274708975 Active Tristan Rose [facility] 3 14:46:56 Acute tonsillitis 98721260 Active Not Available [facility] 3 03:00:52 Depressive disorder 55453976 Active Not Available [facility] 3 03:00:52 Harmful pattern of use of hallucinogen 32574590 Active Not Available [facility] 3 03:00:52 Problem Notes None recorded. Procedures Surgical History Date Name Laterality Status Provider Name and Address Organization Details Recorded Time Appendectomy completed [facility] 02/01/2012 15:59:36 Imaging Results None recorded. Procedure Notes None recorded. Medical Equipment None Reported. Allergies No known drug allergies Medications Name Sig Start Date Stop Date Status Note LastModified by Organization Details LastModified Time Singulair 10 mg tablet Take 1 tablet every day by oral route for 90 days. 2017 active Not Available Not Available Not Avai lable tizanidine 2 mg tablet TAKE ONE TABLET BY MOUTH EVERY 8 HOURS NEEDED 2016 active Not Available Not Available Not Avai lable azithromyci n 250 mg tablet 2 po qd x 1 day then 1 po qd x 4 days 12/14 completed Not Available Not Available Not Available levalbutero l 0.63 mg/3 mL solution for nebulizatio n INHALE 3 MLS EVERY 6-8 HOURS BY NEBULIZAT ION ROUTE NEEDED FOR 30 DAYS. 12/14 completed Not Available Not Available Not Available prednisone 20 mg tablet Take 2 tablets every day by oral route for 7 days. 12/14 completed Not Available Not Available Not Available permethrin 5 % topical cream active Not Available Not Available Not Available promethazin e 6.25 mg-codeine 10 mg/5 mL syrup Take 5 mL every 4-6 hours by oral route as directed for 5 days. 03/25 completed Not Available Not Available Not Available clindamycin 1 %-benzoyl peroxide 5 % topical gel Apply 1 applicati on twice a day by topical route as directed for 30 days. active Not Available Not Available No t Available Tessalon Perles 100 mg capsule Take 1 capsule every 8 hours by oral route as needed for 5 days. 03/25 completed Not Available Not Available Not Available amoxicillin 875 mg tablet 01/30 completed Not Available Not Available Not Available DuoNeb 0.5 mg-3 mg(2.5 mg base)/3 mL solution for nebulizatio n Inhale 3 mL 4 times a day by nebulizat ion route for 10 days. 04/01 completed Not Available Not Available Not Available Advair Diskus 250 mcg-50 mcg/dose powder for inhalation Inhale 1 puff twice a day by inhalatio n route. 12/14 completed Not Available Not Available Not Available Advair Diskus 500 mcg-50 mcg/dose powder for inhalation Inhale 1 puff twice a day by inhalatio n route. 2017 active Not Available Not Available Not Avai lable cefdinir 300 mg capsule Take 1 capsule twice a day by oral route for 10 days. 04/02 completed Not Available Not Available Not Available Bactrim DS 800 mg-160 mg tablet Take 1 tablet twice a day by oral route for 7 days. 03/12 completed Not Available Not Available Not Available clonazepam 1 mg disintegrat ing tablet Place 1 tablet(s) twice a day by transling ual route as directed. active Not Available Not Available No t Available Flovent HFA 220 mcg/actuati on aerosol inhaler 1 puff every day 12/14 completed Not Available Not Available Not Available ProAir HFA 90 mcg/actuati on aerosol inhaler Inhale 2 puff(s) every 4-6 hours by inhalatio n route as needed for 30 days. 2017 active Not Available Not Available Not Avai lable Benzaclin Pump 1 %-5 % topical gel Apply 1 applicati on twice a day by topical route for 30 days. 2011 active Not Available Not Available Not Avai lable Flonase Allergy Relief 50 mcg/actuati on nasal spray,suspe nsion Use 2 sprays in each nostril qd 12/14 completed Not Available Not Available Not Available ProAir RespiClick 90 mcg/actuati on breath activated Inhale 2 puffs every 4 hours by inhalatio n route. 2017 active Not Available Not Available Not Avai lable Vitals Date Recorded Body height Body mass index (BMI) Body weight Heart rate Oxygen saturation Body temperature Systolic And Diastolic Provider Name and Address Organization Details Last Updated DateTime 7 172.72 cm 32.2 kg/m2 22551.5 8 g 78 /min 98 % 97.6 [degF] 110/75 mm[Hg] [facility] 7 17:38:54 Date Recorded Body height Body mass index (BMI) Body weight Heart rate Oxygen saturation Body temperature Systolic And Diastolic Provider Name and Address Organization Details Last Updated DateTime 8 172.72 cm 36.9 kg/m2 347639. 95 g 90 /min 99 % 97.3 [degF] 112/72 mm[Hg] [facility] 8 11:25:14 Date Recorded Body height Body mass index (BMI) Body weight Heart rate Oxygen saturation Body temperature Systolic And Diastolic Provider Name and Address Organization Details Last Updated DateTime 7 172.72 cm 31.9 kg/m2 62736.4 g 70 /min 98 % 98.1 [degF] 105/75 mm[Hg] [facility] 7 18:51:53 Date Recorded Body height Body mass index (BMI) Body weight Heart rate Oxygen saturation Body temperature Systolic And Diastolic Provider Name and Address Organization Details Last Updated DateTime 8 172.72 cm 37.9 kg/m2 666376. 5 g 87 /min 98 % 97.8 [degF] 118/70 mm[Hg] [facility] 8 17:54:04 Date Recorded Body height Body weight Body mass index (BMI) Heart rate Oxygen saturation Body temperature Systolic And Diastolic Provider Name and Address Organization Details Last Updated DateTime 3 170.18 cm 15710.8 8163 g 31.2 kg/m2 68 /min 98 % 97.7 [degF] 101/78 mm[Hg] [facility] 3 14:15:18 Social History Question Answer Notes LastModified by Organizat ion Details LastModified Time Tobacco Smoking Status Never Smoker Not Available [facility] 04/28/2020 03:23:41 Animal Exposure? No Information not available 02/01/2012 What Is Your Level Of Caffeine Consumption? Moderate [id number] Information not available 04/28/2020 What Type Of Interior Wall Assembler Do You Use? None [id number] Information not available 04/28/2020 What Type Of Diet Are You Following? REGULAR [id number] Information not available 04/28/2020 What Is Your Home Situation? Mother [id number] Information not available 04/28/2020 Do You Use Insect Repellent Routinely? No [id number] Information not available 04/28/2020 What Was The Date Of Your Most Recent Tobacco Screening? 03/16/2017 [id number] Information not available 04/28/2020 What Is Your Parents' Marital Status? [id number] Information not available 04/28/2020 Do You Use Your Seat Belt Or Car Seat Routinely? Yes [id number] Information not available 04/28/2020 Do You Have Any Siblings? 2 [id number] Information not available 04/28/2020 Do You Have Smoke And Carbon Monoxide Detectors In Your Home? Yes [id number] Information not available 04/28/2020 Are You Passively Exposed To Smoke? No Information not available 02/01/2012 Do You Use Sunscreen Routinely? No [id number] Information not available 04/28/2020 Sex: Unknown Functional Status Question Answer Note LastModified by Organization D etails LastModified Time What is your exercise level? Moderate [id number] Information not available 04/28/2020 Mental Status None recorded. Family History Relationship Description Onset Age of this Age Resolved Age Notes LastModified by Organization Details LastModified Time Maternal Grandmother Hypertensive disorder previo usly record ed as Hypert ension [id number] Not available 04/08/2013 03:00:44 Father Substance abuse previo usly record ed as Alcoho l/Subs tance Abuse [id number] Not available 04/08/2013 03:00:44 Maternal Grandfather Malignant neoplastic disease colon (previ ously record ed as Cancer ) [id number] Not available 04/08/2013 03:00:44 Medical History Condition Response Gout N COPD N Muscle, Joint, or Bone Problems N Vision or Eye Problems N Serious Illness or Injuries N Cancer N Stroke N Bladder or Kidney Problems N High Cholesterol N Liver Disease N Ear or Hearing Problems N Thyroid Problems N Skin Problems N Anemia N Diabetes N Seizures/Epilepsy N Allergies Y Asthma Y Heart Disease N Pulmonary Embolism N Hypertension N Immunizations Vaccine Type Date Status Note Provider Nam e and Address Organization Details Recorded Time Influenza, split virus, trivalent, preservative 3 completed Not Available [facility] 07/13/2019 02:07:54 pneumococcal polysaccharide PPV23 8 completed Not Available [facility] 07/13/2019 02:07:44 Influenza, split virus, quadrivalent, PF 8 completed Not Available [facility] 07/13/2019 02:08:01 Past Encounters Encounter ID Performer Location Encounter Start Date Encounter Closed Date Diagnosis/Indication Diagnosis SNOMED-CT Code Diagnosis ICD10 Code Diagnosis IMO Codes Diagnosis Note [id number] [facility] [address] [place] [address] 02/01/2012 15:39:20 02/01/2012 18:42:[id number] [facility] [address] [place] [address] 03/05/2012 20:41:08 03/21/2012 15:57:[id number] [facility] [address] [place] [address] 08/30/2012 19:32:26 10/09/2012 13:27:43 [id number] MD NENA Gu [facility] [address] [place] [address] 03/18/2013 17:51:47 03/19/2013 19:28:42 [id number] AAK[address] Ya [facility] [address] [place] [address] 03/23/2013 17:54:01 03/26/2013 12:01:[id number] [facility] [address] [place] [address] 05/01/2013 13:37:43 05/01/2013 16:48:36 Common cold 51356950 Acute asthma 850846160 Bronchitis 17808667 Harmful pa ttern of use of Cannabis [id number] MD NENA Gu [facility] [address] [place] [address] 12/14/2016 17:25:58 12/14/2016 19:21:02 Moderate persistent asthma 078860505 J45.40 stable with current medication s. Generalize d anxiety disorder 61493752 F41.1 ssri, tca, maoi intolerant . stable with med started by psychiatry , continue current medication . Thoracic back pain 66126 8004 M54.6 PRN tizanidine , use sparingly. Recommend PT, refused. Kyphoscoli osis deformity of spine 162782570 M41.80 [id number] MD NENA Gu [facility] [address] [place] [address] 03/16/2017 18:47:50 03/22/2017 18:14:05 Low back pain 943428857 M54.5 Moderate p ersistent asthma 409736810 J45.40 stable with current medication s. [id number] MD NENA Gu [facility] [address] [place] [address] 02/28/2018 11:19:52 03/01/2018 16:42:50 Moderate persistent asthma 680021214 J45.40 stable with current medication s. Low back pain 322315728 M54.5 Generalize d anxiety disorder 64420434 F41.1 ssri, tca, maoi intolerant . stable with med started by psychiatry , continue current medication . Thoracic back pain 44196 8004 M54.6 Kyphoscoli osis deformity of spine 996494381 M41.80 Has been referred to the spine center at [facility], they recommend surgery. Will refer to PT for further eval and treatment. Immunization due 0169192 08 Z23 pneumonia and flue due and administer ed Body mass index 30+ - obesity 853154096 Z68.36 Labs drawn- further eval and treatment pending lab results. Healthy eating- calorie counting and exercise discussed. Seasonal a llergic rhinitis 014956886 J30.2 Start singluair [id number] MD NENA Gu [facility] [address] [place] [address] 04/05/2018 17:44:57 04/24/2018 09:57:29 Kyphoscoliosis deformity of spine 960805248 M41.80 Continue treatment at spine center at [facility], they recommend surgery. Will continue PT as planned. Thoracic back pain 47465 8004 M54.6 Low back pain 970336938 M54.5 Health Concerns Section Related Observation LastModified by Organization Detai ls LastModified Time None Recorded Concern Status LastModified by Organization Details LastModified Time None Recorded Advance Directives Directive None Recorded Payers Insurance Date Sequence Insurance Name Policy Number Policy Velarde Covered Member ID Velarde Member ID Guarantor Name 04/24/2018 1 [facility] (PPO) Ngozi Mcgregor [id number] Richar Hudson 12/12/2016 1 [facility] [id number] Ngozi Mcgregor [id number] Richar Hudson 02/28/2018 1 [facility] (HMO) Ngozi Mcgregor [id number] Richar Hudson Notes Date Note Type Note Provider Name and Address Organization Details Recorded Time 3 text/html Upper Respiratory Symptoms - PediatricReported by PatientUpper Respiratory SymptomsFor quality, patient reportsproductive coughandcongested. For associated symptoms, patient reportsyellow-green, thick sputum,fatigue,sweats,sor e throat, andnauseabut reportsno shortness of breath,no wheezing,no morning cough,no diarrhea, andno rash(vomiting). For location, patient reportsheadandchest. For onset/timing, patient [id number] ago.Mother states that he has flu symptoms Asthma F/UReported by PatientHPIFor severity, patient reportsnot able to sleep during episodeandinterferes with daily activitiesbut reportsused nebulizer several times for this episode. For associated symptoms, patient reportsfatigue,cough,abno rmal appetite, andshortness of breathbut reportsno fever,no irritability, andno changes in productivity. For quality, patient reportssymptoms worse in the evening. For duration, patient reportspresent attack lasted:. For onset/timing, patient reportschronic. For context, patient reportssame. For modifying factors, patient reportsillness. For prior history, patient reportsprior hospitalization/er visits for asthmaandoral steroids have been used for treatment.currently taking advair twice a day Tristan qureshi, [facility] 05/01/2013 16:23:05 7 text/html Generalized Anxiety DisorderReported by PatientHPIFor associated symptoms, patient reportsdifficulty concentrating,difficulty controlling worry,excess anxiety,fatigue,muscle tension, andmuscle achesbut reportsno excessive sweating,no hot flashes,no palpitations,no shortness of breath,no nausea,no diarrhea,no irritability,no trembling,no twitching,no headaches,no restlessness, andno sleep disturbances. For onset/timing, patient reports___ years. For severity, patient reportsmoderate. MD Christina Gu [address] [address], [place], [address], [facility] 12/14/2016 18:33:56 7 text/html Back PainReported by PatientHPIFor location, patient reportspain is not radiating. For severity, patient reportssame. For associated symptoms, patient reportsno fever,no weak limbs,no numbness of the legs/feet,no tingling,no incontinence, andno shortness of breath.muscle relaxers not helping MD Christina Gu [address], [place], [address], [facility] 03/21/2017 18:39:13 8 text/html 1. Adult physical 2. Back pain- thoracic and low back pain due to scoliosis and kyphosis, chronic, pt has seen commercial marketing specialist, desires PT. Pain is constant, moderate, ache without associated symptoms or radiation. 3. Asthma- chronic, improved with medications (inhalers), worse with allergies, moderate, persistent. Jase Curry MD [address] [place] [address], [place], [address], [facility] 02/28/2018 11:55:52 8 text/html 1. Back pain- chronic, thoracic and lumbar, related to kyphosis- pt states that he has started PT, symptoms have worsened but PT has been effective. Jase Curry MD [address] [place] [address],[address], [place], [address], [facility] 04/23/2018 17:35:55
[2025-05-25 12:45] VITALS: BP 130/83; PULSE 88; RESP 21; TEMP 36.6; O2SAT 98; BMI 30.4
--- NOTE | 2025-05-25 12:50 | XRR_ITS ---
PROCEDURE INFORMATION: Exam: XR Chest Exam date and time: 05/25/2025 12:52 PM Age: 29 years old Clinical indication: Dyspnea; Additional info: SOB TECHNIQUE: Imaging protocol: Radiologic exam of the chest. Views: 1 view. COMPARISON: CR XR chest 1V portable [id number] 04/21/2022 10:50 AM FINDINGS: Lungs: Unremarkable. No consolidation. Pleural spaces: Unremarkable. No pleural effusion. No pneumothorax. Heart/Mediastinum: Unremarkable. No cardiomegaly. Bones/joints: Unremarkable. XR/XR chest 1V portable [id number] IMPRESSION: No acute findings.
--- NOTE | 2025-05-25 12:50 | ED_ITS ---
HPI - SOB/Dyspnea General: Chief Complaint: Shortness of Breath/Dyspnea Stated Complaint: sob Time Seen by Provider: 05/25/25 12:48 Source: patient Mode of arrival: ambulatory Limitations: no limitations History of Present Illness: HPI Narrative: 29-year-old male states he has a history of asthma states he is had a flare over the last 2 days he states he has been having some increasing shortness of breath and wheezing. He denies any fevers has had a slight dry cough. He denies any chest pain. Related Data Home Medications ?Medication ?Instructions ?Recorded ?Confirmed Tylenol 1 - 2 tab PO Q6H PRN Pain 08/11/23 albuterol sulfate 2.5 mg/3 mL 2.5 mg continuous nebuli zation Q4H 08/01/20 08/11/23 (0.083 %) solution for nebulization PRN Shortness Of B reath ibuprofen 200 mg tablet 200 - 400 mg PO Q6H PRN Pain 08/01/20 08/11/23 Previous Rx's ?Medication ?Instructions ?Recorded budesonide 180 mcg/actuation 1 inh inhalation BID #1 e a 11/26/20 breath activated powder inhaler albuterol sulfate 90 mcg/actuation 2 inh inhalation Q4 H PRN shortness 10/31/21 aerosol inhaler of breath or wheezing #8.5 g zelda fluticasone 250 mcg-salmeterol 50 1 inh inhalation BID #60 ea 10/31/21 mcg/dose blistr powdr for inhalation (Advair Diskus) tamsulosin 0.4 mg capsule 0.4 mg PO DAILY #14 caps albuterol sulfate 90 mcg/actuation 2 puff inhalation Q 6H PRN 08/11/23 aerosol inhaler (ProAir HFA) shortness of breath or wh eezing #8.5 grams azithromycin 250 mg tablet See Rx Instructions PO .COM PLEX #6 08/11/23 tabs prednisone 20 mg tablet 20 mg PO DAILY #18 tabs 0212/17 methocarbamol 750 mg tablet 750 mg PO Q6H PRN spasms # 20 tabs 08/13/23 naproxen 500 mg tablet (Naprosyn) 500 mg PO BID PRN pa in #20 tabs 08/13/23 amoxicillin 500 mg-potassium 1 tab PO BID #14 tabs clavulanate 125 mg tablet (Augmentin) naproxen 500 mg tablet (Naprosyn) 500 mg PO BID PRN pa in #20 tabs 04/08/24 oxycodone-acetaminophen 5 mg-325 1 tab PO Q12H PRN surya n #7 tabs 12/04/24 mg tablet (Percocet) prednisone 50 mg tablet 50 mg PO DAILY #5 tabs 05/25 Allergies Allergy/AdvReac Type Severity Reaction Status Date / Time cephalexin Allergy ALGY-Hives Verified 04/08/24 19:05 Review of Systems Resp: Reports: dyspnea and wheezing [facility] ED PFSH: Medical History (Updated 05/25/25 @ 13:36 by Deanna Garcia MD) No significant past medical history Surgical History History of appendectomy History of tonsillectomy Social History Smoking and tobacco/nicotine status: current every day tobacco/nicotine user cigarettes Packs smoked per day: 0.5 and e-cigarettes E-Cigarette Details: e- cigarette and with nicotine E-cig/vape details: Daily use Quit status (tobacco/nicotine): has tried quititng Number of times tried to quit tobacco: 5 Second hand smoke exposure: Yes Alcohol intake: current Current gender identity: Male Physical Exam Const: COMMON NORMALS: no acute distress, patient oriented x3 and healthy appearing HENMT: COMMON NORMALS: normocephalic and atraumatic HEAD & SCALP: normocephalic and atraumatic Neck/C-Spine: COMMON NORMALS: full ROM and supple Chest: COMMONS NORMALS: normal inspection of the chest Resp: COMMON NORMALS: normal respiratory effort, No retractions and No use of accessory muscles AUSCULTATION: wheezes Cardio: COMMON NORMALS: regular rate, regular rhythm and No murmurs present (Cardio) RATE: regular rate RHYTHM: regular rhythm Extremity: COMMON NORMALS: normal to inspection and full ROM Neuro: COMMON NORMALS: patient oriented x3, moves all extremities and no focal motor deficits Psych: COMMON NORMALS: mental status grossly normal, Normal thought process present and cooperative THOUGHT PROCESS: Normal thought process present Skin: COMMON NORMALS: no rashes or lesions noted and no wounds GENERAL SKIN EXAM: no rashes or lesions noted Course Vital Signs: Vital signs: Vital Signs Temperature 97.8 F 05/25/25 12:45 Pulse Rate 77 05/25/25 13:22 Respiratory Rate 20 H 05/25/25 13:08 Blood Pressure 130/83 05/25/25 12:45 Pulse Oximetry 95 05/25/25 13:08 Oxygen Delivery Me thod Room Air 05/25/25 13:08 MDM - SOB/Dyspnea Medical Decision Making Patient presents here with shortness of breath differential includes pulm emboli, pneumonia, asthma exacerbation. Patient has no signs of a pulmonary emboli no chest pain no hypoxia no tachycardia. X-ray here was interpreted by me showed no acute abnormality no signs of pneumonia likely an asthma exac erbation did have wheezing his wheezing is improved here after breathing treatment did give him a steroid here will prescribe him prednisone for home he is follow-up his PCP and return if worsening he understands agrees to plan. Medical Records I reviewed the patient's medical records. Lab Data Labs/Radiology: Radiology Impressions Chest X-Ray 05/25/25 12:50 IMPRESSION: No acute findings. All radiology interpretation(s) finalized by discharge Discharge Plan Discharge Patient Disposition: Home Clinical Impression: Asthma with exacerbation Condition: Stable Prescriptions: New prednisone 50 mg tablet 50 mg PO DAILY Qty: 5 0RF No Action azithromycin 250 mg tablet See Rx Instructions PO .COMPLEX Qty: 6 0RF Rx Instructions: For 250 mg dose pack: take 500 mg today (day 1), then 250 mg for 4 days (days 2-5) PO prednisone 20 mg tablet 20 mg PO DAILY Qty: 18 0RF Rx Instructions: Take 60mg (3 tabs) days 1, 2, 3 Take 40mg (2 tabs) days 4,5,6 take 20mg (1 tab) days 7,8,9 albuterol sulfate [ProAir HFA] 90 mcg/actuation HFA aerosol inhaler 2 puff INHALATION Q6H PRN (Reason: shortness of breath or wheezing) Qty: 8.5 0RF budesonide 180 mcg/actuation aerosol powdr breath activated 1 inh inhalation BID Qty: 1 0RF Rx Instructions: Generic form if available. albuterol sulfate 2.5 mg /3 mL (0.083 %) solution for nebulization 2.5 mg continuous nebulization Q4H PRN (Reason: Shortness Of Breath) ibuprofen 200 mg Tablet 200 - 400 mg PO Q6H PRN (Reason: Pain) Tylenol 1 - 2 tab PO Q6H PRN (Reason: Pain) albuterol sulfate 90 mcg/actuation HFA aerosol inhaler 2 inh inhalation Q4H PRN (Reason: shortness of breath or wheezing) Qty: 8.5 2RF Advair Diskus 250-50 mcg/dose blister with device 1 inh inhalation BID Qty: 60 2RF tamsulosin 0.4 mg capsule 0.4 mg PO DAILY Qty: 14 0RF methocarbamol 750 mg tablet 750 mg PO Q6H PRN (Reason: spasms) Qty: 20 0RF Naprosyn 500 mg tablet 500 mg PO BID PRN (Reason: pain) Qty: 20 0RF oxycodone-acetaminophen [Percocet] 5-325 mg tablet 1 tab PO Q12H PRN (Reason: pain) Qty: 7 0RF naproxen [Naprosyn] 500 mg tablet 500 mg PO BID PRN (Reason: pain) Qty: 20 0RF amoxicillin-pot clavulanate [Augmentin] 500-125 mg tablet 1 tab PO BID Qty: 14 0RF Discharge Orders: Discharge ED (Routine); Ordered 05/25/25 Ordered By: Deanna Garcia Referrals: Juan Antonio Dunn DO [Primary Care Provider, [facility]] - 4-7 days Discharge Diet: Advance as tolerated Discharge Activity: Resume usual activity Patient Instructions: Asthma (ED) Print Language: Divehi Coding Level of Care Code ED Gut Dropper for Pepper Umanzor
[2025-05-25 13:02] VITALS: PULSE 85; O2SAT 98
[2025-05-25 13:08] VITALS: PULSE 77; RESP 20; O2SAT 95
[2025-05-25 13:22] VITALS: PULSE 77
== END 2025-05-25 13:59 | disposition home or self-care (01) ==
PROVIDERS: Emergency Provider Emergency Medicine; PCP Electrodiagnostic Medicine
DX: J45.901 Unspecified asthma with (acute) exacerbation (principal); F17.210 Nicotine dependence, cigarettes, uncomplicated; F17.290 Nicotine dependence, other tobacco product, uncomplicated
CPT/HCPCS: 71045; 94640; 99283; J7512; J7613; J9999